=== PATIENT | female | born 1975 | race Caucasian/White ===

== ENCOUNTER 2020-05-02 12:56 | Outpatient (CLI) | payer BC, SELFPAY | END 2020-05-02 12:57 | disposition home or self-care (01) | LOC: ANHCOVIDVC 12:56 | PROVIDERS: PCP Family Medicine | DX: Z23 Encounter for immunization (principal) | CPT/HCPCS: 0001A; 91300 ==

== ENCOUNTER 2020-05-23 12:58 | Outpatient (CLI) | payer BC, SELFPAY | END 2020-05-23 12:59 | disposition home or self-care (01) | LOC: ANHCOVIDVC 12:59 | PROVIDERS: PCP Family Medicine | DX: Z23 Encounter for immunization (principal) | CPT/HCPCS: 0002A; 91300 ==

== ENCOUNTER → 2020-08-17 12:18 | Outpatient (CLI) | payer BC, SELFPAY ==
--- NOTE | ~2020-08-17 | MM_ITS ---
EXAMINATION: MM screening adrienne BI w braden HISTORY: Screening TECHNIQUE: Craniocaudal and mediolateral oblique 3-D tomosynthesis images were obtained and synthetic 2-D images were generated. CAD analysis was submitted and interpreted. COMPARISON: Comparison to multiple prior studies sequentially, with oldest reviewed study dated 11/13. BREAST PARENCHYMAL COMPOSITION: The breasts are almost entirely fatty. FINDINGS: There is no evidence of suspicious mass, calcification, or architectural distortion to sugg est malignancy in either breast. There has been no suspicious interval change. IMPRESSION: 1. No mammographic evidence of malignancy. 2. Recommend routine screening mammography in one year. BI-RADS Category 1: Negative Reviewed, dictated and finalized at location A.
== END ==
PROVIDERS: PCP Family Medicine; Visit Provider Physician Assistant
DX: Z12.31 Encounter for screening mammogram for malignant neoplasm of breast (principal)
CPT/HCPCS: 77063; 77067

== ENCOUNTER 2020-10-25 16:25 | Outpatient (CLI) | payer BC, SELFPAY ==
--- NOTE | ~2020-10-25 | CT_ITS ---
EXAMINATION: CT abdomen pelvis wo/w con DATE: 10/25/2020 17:40 INDICATION: Right lower quadrant pain TECHNIQUE: Computed tomography (CT) of the abdomen and pelvis was performed without and with 130 cc O mnipaque 350 intravenous contrast. The dose-length product was 2998.65 mGy-cm. Automated exposure con trol and iterative reconstruction technique were employed. COMPARISON: None. FINDINGS: Lung bases are unremarkable. No significant pleural or pericardial effusion. Heart size is normal. There are nonobstructing bilateral renal stones. No hydronephrosis. Ureters are normal in cou rse and caliber. There is a small exophytic hypodense lesion of the right kidney measuring 1.4 cm, li sundeep a minimally complicated cysts. Adrenal glands are unremarkable. There is a subcentimeter hypodense lesion of the left kidney, likely benign cysts. Nonobstructive bowel gas pattern. Normal appendix. No lymphadenopathy. No free air or free fluid. IMPRESSION: 1. Nonobstructing bilateral nephrolithiasis. Reviewed, dictated and finalized at location A.
[2020-10-25 17:19] LABS: Estimated Glomerular Filt Rate > 60
== END 2020-10-25 16:26 | disposition home or self-care (01) ==
PROVIDERS: PCP Family Medicine; Visit Provider Physician Assistant
DX: N20.0 Calculus of kidney (principal); Z87.442 Personal history of urinary calculi
CPT/HCPCS: 74178; Q9967

== ENCOUNTER 2021-07-23 09:02 | Emergency (ER) | payer BC, SELFPAY ==
--- NOTE | 2021-07-23 09:06 | ED.GENADULT ---
HPI - General Adult General Chief complaint: Abdominal Pain Stated complaint: pain on right side, requests xray Time Seen by Provider: 07/23/21 09:06 Source: patient and RN notes reviewed History of Present Illness HPI narrative: Patient is a 45-year-old female who presents the urgent care with complaints of right side pain that radiates every now and then into the right lower abdomen. Patient states that it started out with severe nausea and loose stools on Friday. Patient states she felt fine Friday. States that yesterday she was nauseated again without vomiting. States that she spoke to her [place] physician this morning and they told her to go to the urgent care to rule out appendicitis and kidney stones. Patient denies any fevers. States that she has had kidney stones in the past but it approximately 20 years. Denies of any frequency or urgency with urination. Patient reports taking one dose of Uroflo. Denies of any blood in the urine. No other acute complaints. No acute distress noted. Patient aware of the plan of care. Some parts of this dictation were generated by voice recognition software and may contain typographical and/or grammatical inaccuracies. Related Data Allergies Allergy/AdvReac Type Severity Reaction Status Date / Time Sulfa (Sulfonamide Allergy Unknown Nausea and Verified 07/23/21 09:18 Antibiotics) Vomiting Review of Systems Review of Systems: CONSTITUTIONAL: Denies fever, chills, or sweats. EYES: Denies visual changes, redness, or discharge. ENT: Denies rhinorrhea, congestion, sore throat, or otalgia. CARDIOVASCULAR: Denies chest pain, palpitations, or edema. RESPIRATORY: Denies cough or dyspnea. GASTROINTESTINAL: Reports of intermittent right abdominal pain without vomiting GENITOURINARY: Denies dysuria or hematuria. SKIN: Denies rash or itching. MUSCULOSKELETAL: Reports of right lower back/side pain NEUROLOGIC: Denies headache, numbness, or weakness. All other systems reviewed are negative, except as documented in HPI. [facility] Family History Family History Father Hypertension Mother Hypertension Social History Social History Smoking status: Former smoker Smoking end date: 02/17/06 Alcohol intake: never Substance use: never Gender identity (if verbalized by the patient): Female Comments At the time of my signature, I reviewed and agree with the nursing past medical, surgical, social, and family history. There is no relevant family history pertinent to the patient complaint. Exam Narrative: GENERAL: This is a well-nourished, well-developed patient, in no apparent distress. HEAD: normocephalic, atraumatic. EYES: PERRL. Sclera clear/white. Vision is grossly intact. EARS: External ears normal NOSE: External nose normal with no obvious nasal discharge, nares without redness, no rhinorrhea. THROAT: Mucous membranes moist NECK: Neck supple CARDIOVASCULAR: Regular rate and rhythm without murmurs, gallops, or rubs. RESPIRATORY: Clear to auscultation. Breath sounds equal bilaterally. No wheezes, rales, or rhonchi. GASTROINTESTINAL: Abdomen soft, nondistended. Bowel sounds are active. Mild right-sided rebound tenderness. No guarding. Negative obturator exam SKIN: warm, intact with no suspicious lesions or rash, good texture and turgor. NEURO: awake, alert, and oriented to person, place and time. There were no obvious focal neurologic abnormalities. EXTREMITIES: No clubbing, cyanosis, or edema. BACK: No flank tenderness. Course Course Level of Care: Express Care Visit Vital Signs Vital signs: Vital Signs Temperature 98.2 F 07/23/21 09:10 Pulse Rate 88 07/23/21 09:10 Respiratory Rate 16 07/23/21 09:10 Blood Pressure 158/91 H 07/23/21 09:10 Pulse Oximetry 99 07/23/21 09:10 Oxygen Delivery Room Air 07/23/21 09:10 Temperature 98.2 F 07/23/21 09
[2021-07-23 09:10] VITALS: BP 158/91; PULSE 88; RESP 16; TEMP 36.8; O2SAT 99
== END 2021-07-23 09:45 | disposition home or self-care (01) ==
PROVIDERS: Emergency Provider Nurse Practitioner Family; PCP Family Medicine
DX: N39.0 Urinary tract infection, site not specified (principal); Z87.891 Personal history of nicotine dependence; I10 Essential (primary) hypertension
CPT/HCPCS: 81003; 87077; 87086; 87186; 99213; G0463

== ENCOUNTER 2021-07-25 07:46 | Inpatient (IN) | payer BC, SELFPAY ==
[2021-07-25] VITALS (20 sets, daily range): BP systolic 106–159; BP diastolic 53–96; PULSE 85–132; RESP 16–30; TEMP 36.1–39.8; O2SAT 94–99
--- NOTE | ~2021-07-25 | XR_ITS ---
EXAMINATION: XR retrograde pyelo w/stent RT DATE: 07/25/2021 16:02 CDT INDICATION: RETRO/STENT . TECHNIQUE: 5 fluoroscopic images of the right upper abdomen were obtained during retrograde pyelograp hy with stent placement performed by the surgeon. I was not present in the operating room. Fluoroscop y exposure time was 50.6 seconds. Cumulative dose was 1.58 mGy2. COMPARISON: CT abdomen and pelvis 07/25/2021 FINDINGS: Guidewire access to both the upper and lower pole moieties of the right partially duplicated collecti ng system. The previously detected right UPJ stone in the upper moiety is not fluoroscopically visual ized. Ureteral stent placement with the proximal pigtail in the upper pole moiety and the distal pigt ail in the bladder. No fluoroscopic evidence of procedure or device related complication. IMPRESSION: Fluoroscopic documentation of right retrograde pyelography and stent placement.. Reviewed, dictated and finalized at location K. IMPRESSION: Fluoroscopic documentation of right retrograde pyelography and stent placement. .
--- NOTE | ~2021-07-25 | CT_ITS ---
EXAMINATION: CT abdomen pelvis wo con DATE: 07/26/2021 11:38 INDICATION: Kidney stone. TECHNIQUE: Computed tomography (CT) of the abdomen and pelvis was performed without intravenous contr ast. Automated exposure control and iterative reconstruction technique were employed. The dose-length product was 1521.26 mGy-cm. COMPARISON: CT abdomen and pelvis 07/25/2021, 10/25/2020 FINDINGS: The visualized portions of the lung bases demonstrate minimal atelectasis. No pleural effus ion. The heart size is normal. No pericardial effusion. There is diffuse hepatic steatosis. The gallb ladder, spleen, pancreas, and adrenal glands are normal. There are cysts in right kidney measuring up to 1.8 cm. 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 There are are 2 right-sided internal ur eteral stents in expected positions. There is a 6 mm stone in the upper pole proximal ureter. There a re two 1-2 mm stones in right kidney lower pole. There are approximately 3 stones in left kidney aileen uring up to 4 mm. There is diverticulosis of the colon without evidence of diverticulitis. There are no dilated loops of bowel. The appendix is normal. There is an umbilical hernia containing fat. There are no pathologically enlarged lymph nodes. There is no free intraperitoneal fluid. There is mild th oracolumbar spondylosis. IMPRESSION: 1. 6 mm stone in the right kidney upper pole proximal ureter. 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 2. Small bilateral nonobstructing kidney stones. Reviewed, dictated and finalized at location A. IMPRESSION: 1. 6 mm stone in the right kidney upper pole proximal ureter. Partial duplicati on of right ureter with 2 internal ureteral stents in expected positions. 2. Small bilateral nonobstructing kidney stones.
--- NOTE | ~2021-07-25 | XR_ITS ---
XR abdomen/kub 1V 07/26/2021 08:13 Indication: Assess renal stones and stents. 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 No renal/ureteral stones are identified, although evaluation of the upper abdomen limited b y motion. Nonobstructive bowel gas pattern. No acute osseous abnormality. Impression: 1: No renal/ureteral stones visualized. Reviewed, dictated and finalized at location B. Impression: 1: No renal/ureteral stones visualized.
--- NOTE | ~2021-07-25 | CT_ITS ---
EXAMINATION: CT abdomen pelvis wo con DATE: 07/25/2021 09:52 INDICATION: Right flank pain, fever for 3 days. Possible kidney stone. TECHNIQUE: Computed tomography (CT) of the abdomen and pelvis was performed without intravenous contr ast. Automated exposure control and iterative reconstruction technique were employed. Exam dose: 131 5.93 mGy-cm total exam DLP. COMPARISON: 10/25/2020 CT abdomen pelvis FINDINGS: There is minimal dependent right lower lobe atelectasis. Normal heart size. No pericardial or pleural effusion. Very small sliding hiatal hernia. No hepatic, splenic, pancreatic, adrenal space-occupying mass lesion. No bile duct or pancreatic duct dilatation. The gallbladder appears unremarkable. Minimal bilateral nephrolithiasis, left greater than right. Approximate 4.7 x 5.7 mm right ureteropelvic junction calculus. There is mild right hydronephrosis. No left ureteral calculus or hydroureteronephrosis. The urinary bladder is unremarkable. There is [place] rine enlargement. There are numerous diverticula of the sigmoid colon; no CT evidence of diverticulitis. No bowel obstr uction, bowel wall thickening, pneumatosis or intraperitoneal free air. Small fat-containing umbilical hernia. Transitional fifth lumbar vertebra with sacralization pseudoarthrosis on the right. IMPRESSION: Approximately 4.7 x 5.7 mm right ureteropelvic junction calculus with mild right hydrone phrosis Slight right, minimal left nephrolithiasis Very small sliding hiatal hernia Diverticulosis of left colon; no CT evidence of diverticulitis Reviewed, dictated and finalized at Location A. Reviewed, dictated and finalized at location A. IMPRESSION: Approximately 4.7 x 5.7 mm right ureteropelvic junction calculus w ith mild right hydronephrosis Slight right, minimal left nephrolithiasis Very small sliding hiatal hernia Diverticulosis of left colon; no CT evidence of diverticulitis
--- NOTE | ~2021-07-25 | XR_ITS ---
XR abdomen/kub 1V DATE: 07/25/2021 10:54 INDICATION: Right abdominal pain. Right ureteropelvic junction calculus TECHNIQUE: AP view COMPARISON: 07/25/[address] abdomen pelvis FINDINGS: The right ureteropelvic junction calculus documented on 07/25/2021 CT abdomen pelvis examinat ion isn't radiographically occult, as are the small calculi of the lower pole of each kidney. No evidence of bowel obstruction. IMPRESSION: Radiographically occult right ureteropelvic junction and bilateral lower pole renal calcu li Reviewed, dictated and finalized at Location A. Reviewed, dictated and finalized at location A. IMPRESSION: Radiographically occult right ureteropelvic junction and bilateral lower pole renal calculi
[2021-07-25 08:15] LABS: Basophils Absolute Auto 0.1 K/mm3 (0.0-0.1); Basophils Percent Auto 0.4 % (0.2-1.2); Eosinophils Absolute Auto 0.3 K/mm3 (0-0.3); Eosinophils Percent Auto 2.5 % (0-4.4); Hematocrit 40.5 % (37.0-47.0); Immature Granulocyte Absolute 0.08 K/mm3 (0.00-0.031); Immature Granulocyte Percent A 0.6 % (0-0.5); Lymphocytes Absolute Auto 0.42 K/mm3 (0.9-3.2); Lymphocytes Percent Auto 3.3 % (18.3-44.2); Mean Corpuscular HGB Conc 34.6 g/dl (32-36); Mean Corpuscular Hemoglobin 32.3 pg (26-34); Mean Corpuscular Volume 93.3 fl (80-100); Mean Platelet Volume 9.7 fl (7.4-10.4); Monocytes Absolute Auto 0.8 K/mm3 (0.1-0.6); Monocytes Percent Auto 6.3 % (2.6-8.5); Neutrophils Percent Auto 86.9 % (45.5-73.1); Platelet Count Result 212 k/mm3 (150-375); Red Blood Count 4.34 M/mm3 (4.2-5.4); Red Cell Distribution Width 12.3 % (11.5-14.5); White Blood Count 12.7 K/mm3 (4.5-10.0)
[2021-07-25 08:17] LABS: Appearance Urine Slightly Cloudy (Clear); Bilirubin Urine Negative (Negative); Blood Urine 1+ (Negative); Glucose Urine UA Negative (Negative); Ketones Urine 1+ mg/dL (Negative); Leukocyte Esterase Ur Trace LEU/UL (Negative); Nitrate Urine Negative (Negative); Protein Urine 2+ mg/dL (Negative); Specific Grav Ur 1.015 (1.001-1.035); Urobilinogen Urine 0.2 mg/dL (<2.0)
[2021-07-25 08:28] LABS: Bacteria Urine Trace /hpf; Mucus Urine Rare /lpf; Squamous Epithelial Cell Urine Moderate /hpf (Few); WBC Urine 16-20 /hpf
[2021-07-25 08:30] LABS: Alanine Aminotransferase 28 U/L (6-35); Albumin Level 3.9 g/dL (3.5-5.1); Alkaline Phosphatase 60 U/L (38-126); Anion Gap 6 mmol/L (8-16); Aspartate Amino Transferase 37 U/L (14-36); Bilirubin,Total 1.4 mg/dL (0.2-1.3); Blood Urea Nitrogen 14 mg/dL (7-17); Calcium 8.8 mg/dL (8.4-10.2); Carbon Dioxide 25 mmol/L (22-30); Chloride 101 mmol/L (98-107); Estimated CRCL calculation 111 ml/min; Estimated Glomerular Filt Rate > 60; Glucose 195 mg/dL (65-110); Potassium 3.4 mmol/L (3.4-5.0); Sodium 132 mmol/L (137-145)
[2021-07-25 08:42] LABS: Add Urine Microscopic? YES; Color Urine Dark Yellow (Yellow)
--- NOTE | 2021-07-25 09:02 | PC.NURSE ---
Lab notified of add-on Hemoglobin A1C and urine .
[2021-07-25] MEDS: SODIUM CHLORIDE 0.9% IV 1,000 ML 150 ML IV CONT (09:05)
[2021-07-25 09:31] LABS: Pregnancy On Board Control Positive; Urine Pregnancy Test Negative
[2021-07-25 09:40] LABS: SARS-CoV-2 RNA PCR Negative
[2021-07-25 10:47] LABS: Hemoglobin A1C 5.5 % (<5.7)
--- NOTE | 2021-07-25 10:54 | ED.FEVER ---
HPI - Fever General Chief Complaint: Fever Stated Complaint: fever for three days Time Seen by Provider: 07/25/21 08:04 Source: patient Mode of arrival: ambulatory Limitations: no limitations History of Present Illness HPI Narrative: 45-year-old with a history of hypertension, kidney stones here with complaints of right flank pain radiating into to the lower right lower abdomen. Patient states that she has been to urgent care was given Macrobid for possible UTI. Since this morning she has been having more pain and her temperature was 104 at home at the time she came to the ER that her fever broke , she did her mention her son was diagnosed with Viral syndrome . MD elicited complaint: fever Pertinent past history: other (Kidney stones) Context: recent antibiotic use (macrobid) Exacerbating factors: nothing Relieving factors: acetaminophen Associated symptoms: denies other symptoms Treatments prior to arrival fever: acetaminophen Related Data Allergies Allergy/AdvReac Type Severity Reaction Status Date / Time Sulfa (Sulfonamide Allergy Unknown Nausea and Verified 07/25/21 08:08 Antibiotics) Vomiting Review of Systems Constitutional: Constitutional: Reports no additional constitutional complaints Eyes: Eyes: Reports no additional eye complaints ENT: Reports system reviewed and no additional complaints, except as documented Cardiovascular: Cardiovascular: Reports no additional cardiovascular complaints Respiratory: Respiratory: Reports no additional respiratory complaints Gastrointestinal: Gastrointestinal: Reports as per HPI Musculoskeletal: Musculoskeletal: Reports no additional musculoskeletal complaints Neurologic: Reports system reviewed and no additional complaints, except as documented PMFSH Family History Family History Father Hypertension Mother Hypertension Social History Social History Smoking status: Former smoker Smoking end date: 02/17/06 Alcohol intake: never Substance use: never Gender identity (if verbalized by the patient): Female Exam Narrative: GENERAL: Well-appearing, well-nourished, and in no acute distress.diaphoretic HEAD: Normocephalic, atraumatic. EYES: PERRLA and EOMI. NECK: Supple. CHEST: Clear to auscultation. No respiratory distress. HEART: Regular rate and rhythm. No murmur heard. Normal peripheral pulses. ABDOMEN: Soft, nontender, nondistended, normal active bowel sounds. EXTREMITIES: Normal range of motion. No edema. SKIN: Warm, dry, no rash. NEURO: No focal deficits. Alert and oriented x3. PSYCH: Normal mood and affect. Course Course Emergency Course: I did inform patient about her lab work, CT findings. Discussed with Dr. Bach recommended patient to be admitted to the hospitalist will possibly place stent today. Meanwhile I did give her IV fluids, pain medication and IV Rocephin. Vital Signs Vital signs: Vital Signs Temperature 37.4 C 07/25/21 07:49 Pulse Rate 107 H 07/25/21 07:49 Respiratory Rate 17 07/25/21 07:49 Blood Pressure 141/85 H 07/25/21 07:49 Pulse Oximetry 97 07/25/21 07:49 Temperature 37.4 C 07/25/21 07:49 Pulse Rate 107 H 07/25/21 07:49 Respiratory Rate 17 07/25/21 07:49 Blood Pressure 106/53 L 07/25/21 10:01 Pulse Oximetry 98 07/25/21 10:01 MDM - Fever MDM Narrative Medical decision making narrative: 45-year-old with kidney stones now having flank pain with a high fever suspect possible infected stone versus pyelonephritis versus UTI will do lab and CT. Differential Diagnosis Differential diagnosis: Likely pyelonephritis Medical Records Attestation: I reviewed the patient's medical records. Lab Data Attestation: I reviewed the patient's lab results. Result diagrams: 07/25/21 08:10 07/25/21 08:10 Labs: Lab Results 07/25/21 07/25/21 07/25/21 Range/
--- NOTE | 2021-07-25 12:23 | WPDURCON ---
Assessment and Plan Assessment and plan (1) E coli infection: Code(s): A49.8 - Other bacterial infections of unspecified site Status: Acute Assessment and Plan: Urine Culture from grew E-Coli sensitive to both Macrobid that she has taken for two days without improvement and Ceftriaxone given in the ER today. New urine and blood cultures were taken today, continue with Ceftriaxone. Likely secondary to obstructive stone. (2) Bilateral renal stones: Code(s): N20.0 - Calculus of kidney Status: Acute Assessment and Plan: Visible on KUB, could be treated with an ESWL in the future after discharge and infection is gone, or watched yearly with a KUB with the risk of stones passing spontaneously. (3) Right ureteral stone: Code(s): N20.1 - Calculus of ureter Status: Acute Assessment and Plan: D/t persistent fevers, infection of the urine, and persistent pain, we will plan to take her to the OR today for a Cystoscopy, right ureteroscopy with stent placement, right retrograde pyelogram. Keep NPO. Obtain consent. Admit to medicine for continued treatment of UTI, possible sepsis. Urology Consult Note HPI Date Seen: 07/25/21 Requesting Physician: Roseann Brown MD Primary Care Provider: Jarek Mayo MD Consult Narrative Reason for consult: Obstructive Right Ureteral stone with UTI Narrative: Oneyda Griffiths is a 45 year old female who presented to the ER this morning with persistent fevers for 3 days up to 104, right flank and abdominal pain. She initially went to urgent care and was treated for a UTI/pyelonephritis with Macrobid. Her urine culture from 07/23/21 grew E-Coli which was sensitive to Macrobid, but she continued to worsen. Her CT scan today shows a 4x5mm right UPJ stone with mild hydronephrosis and bilateral non obstructive stones. All stones seem to be visible on KUB. She took Tylenol around 0800 which has subsided her fever at this time. She denies dysuria, hematuria, nausea or vomiting. She has a creatinine of 0.80 and a WBC of 12.7. She has a history of kidney stones that were treated with a stent/ESWL, which didn't work and then required a PCNL at a different hospital 20 years ago after delivery of her baby at that time. She has known about her stones since then but was watching them and hasn't seen a urologist since. She was just waiting for symptoms to address them. Review of Systems Constitutional: Constitutional: Reports fatigue and Reports night sweats Cardiovascular: Cardiovascular: Denies chest pain Respiratory: Respiratory: Reports no additional respiratory complaints Gastrointestinal: Gastrointestinal: Reports abdominal pain, Denies nausea and Denies vomiting Genitourinary: Genitourinary: Denies hematuria, Denies dysuria, Denies pelvic pain, Reports flank pain, Denies urinary incontinence, Denies urinary hesitancy and Denies urinary urgency [facility] Family History Family History Father Hypertension Mother Hypertension Social History Social History Smoking status: Former smoker Smoking end date: 02/17/06 Alcohol intake: never Substance use: never Gender identity (if verbalized by the patient): Female Meds Home Medications and Allergies Home Medications Medication Instructions Recorded Confirmed Type lisinopril 10 mg tablet 10 mg PO DAILY #90 tabs 03/27/21 07/23/21 Rx nitrofurantoin 100 mg PO Q12H 7 days #14 caps 07/23/21 Rx monohydrate/macrocrystals 100 mg capsule (Macrobid) Allergies Allergy/AdvReac Type Severity Reaction Status Date / Time Sulfa (Sulfonamide Allergy Unknown Nausea and Verified 07/25/21 08:08 Antibiotics) Vomiting Vital Signs Vital Signs - 24 hr 07/25/21 07:49 07/25/21 07:59 07/25/21 08:00 Temperature 99.3 F Pulse Rate 107 H Respiratory Rate 17 Blood Pressure
--- NOTE | 2021-07-25 13:15 | PM.IMHP ---
H&P: HPI History of Present Illness Date/Time: 07/25/21 13:15 Chief Complaint: Fever and right flank pain. Narrative: This is a pleasant 45-year-old female with hypertension and history of kidney stones who presented to the ER for evaluation of fever and right flank pain. Several days ago she developed right-sided flank and lower abdominal pain and at that time she was worried that she may have another kidney stone or perhaps even had appendicitis. She was seen at a local urgent care where she was diagnosed with the urinary tract infection and she was prescribed Macrobid. At that time they told her that she may need to go to the ER for imaging however she wanted to try the antibiotics 1st. Urine culture grew pansensitive E coli and despite compliance with her antibiotics she has started to feel worse. In fact she has continuously spiked fevers despite alternating ibuprofen and Tylenol with a T-max of 104? F. She has had essentially no appetite and reports ongoing nausea. CT of the abdomen and pelvis today showed an approximately 4.7 x 5.7 mm right ureteropelvic junction calculus with mild right hydronephrosis and she is now status post cystoscopy with right ureteral stent placement and Ramirez catheter insertion. I saw her not long after returning to the floor and she appears to be having rigors. She denies feeling particularly hot or cold at this time. She continues to have nausea and she is reporting spasms in her bladder. Review of Systems Review of Systems: Twelve systems were reviewed. Family members had viral infection last week and she initially thought perhaps she had caught that. No sinus congestion or sore throat. No cough or shortness of breath. She denies chest pain. No diarrhea. She has not really had any dysuria. Except as documented, all other systems were reviewed and are negative. COUNT INCLUDES THE [facility] Past Medical History Medical History Hypertension Kidney stones Surgical History Surgical History History of section x3 History of lithotripsy Family History Family History Father Hypertension Mother Hypertension Social History Social History Social History: Surrogate decision maker: Kian Griffiths, spouse. Code status: Full code. Smoking status: Never smoker Smoking end date: 02/17/06 Alcohol intake: never Substance use: never Additional living arrangements comments: Lives in [place] with family. 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 Spiritual care concerns: No Meds Home Medications and Allergies Home Medications Medication Instructions Recorded Confirmed Type lisinopril 10 mg tablet 10 mg PO DAILY #90 tabs 03/27/21 07/25/21 Rx nitrofurantoin 100 mg PO Q12H 7 days #14 caps 07/23/21 07/25/21 Rx monohydrate/macrocrystals 100 mg capsule (Macrobid) Allergies Allergy/AdvReac Type Severity Reaction Status Date / Time Sulfa (Sulfonamide AdvReac Unknown Nausea and Verified 07/25/21 17:59 Antibiotics) Vomiting Vital Signs Vital Signs - 24 hr 07/25/21 07:49 07/25/21 07:59 07/25/21 08:00 Temperature 99.3 F Pulse Rate 107 H Respiratory Rate 17 Blood Pressure 141/85 H 114/68 Pulse Oximetry 97 96 96 Oxygen Delivery 07/25/21 08:01 07/25/21 08:02 07/25/21 09:58 Temperature Pulse Rate Respiratory Rate Blood Pressure 128/96 H Pulse Oximetry 96 95 99 Oxygen Delivery 07/25/21 10:00 07/25/21 10:01 07/25/21 12:25 Temperature Pulse Rate 96 Respiratory Rate Blood Pressure 106/53 L 107/73 Pulse Oximetry 98 98 98 Oxygen Delivery 07/25/21 13:38 Temperature 97.1 F L Pulse Rate 107 H Respiratory Rate 16 Blood Pressure 154/76 H Pulse Oximetry 94 Oxygen Delivery Room Air Exa
[2021-07-25] MEDS: LACTATED RINGERS 1,000 ML 30 ML IV CONT (14:20)
--- NOTE | 2021-07-25 14:35 | WPDHPUPDATE1 ---
History and Physical Update Update Date/Time: 07/25/21 14:35 History and Physical has been reviewed, including an updated exam of the patient. There are NO changes in the patient's condition. Risks, benefits, and alternatives have been discussed and questions answered. Patient agrees to proceed with procedure.
--- NOTE | 2021-07-25 15:04 | WPDANESEPPF ---
Anes - Initial Pre Proc Eval Procedure: Operation Date: 07/25/21 16:00 Proposed Procedures p Cystoscopy, Retrogradepyelogram, Right Stone Extraction, Right Stent Placement; Possible Laser(Right) - Niki Bach MD Date/Time: 07/25/21 15:04 Surgeon: Roseann Brown MD Pre Op Diagnosis: Fever, infected renal stone Patient Data Age: 45 Gender: F Height: 1.7 m Weight: 135 kg Last Vital Signs Temp 36.2 C L 07/25/21 13:38 Pulse 107 H 07/25/21 13:38 Resp 16 07/25/21 13:38 BP 154/76 H 07/25/21 13:38 Pulse Ox 94 07/25/21 13:38 O2 Del Method Room Air 07/25/21 13:38 Allergies Allergy/AdvReac Type Severity Reaction Status Date / Time Sulfa (Sulfonamide Allergy Unknown Nausea and Verified 07/25/21 08:08 Antibiotics) Vomiting Home Medications Medication Instructions Recorded Confirmed Type lisinopril 10 mg tablet 10 mg PO DAILY #90 tabs 03/27/21 07/25/21 Rx nitrofurantoin 100 mg PO Q12H 7 days #14 caps 07/23/21 07/25/21 Rx monohydrate/macrocrystals 100 mg capsule (Macrobid) Laboratory Tests 07/25/21 07/25/21 07/25/21 08:09 08:09 08:10 WBC RBC Hgb Hct MCV MCH MCHC RDW Plt Count MPV Immature Gran % (Auto) Neut % (Auto) Lymph % (Auto) [place] % (Auto) Eos % (Auto) Baso % (Auto) Lymph # (Auto) [place] # (Auto) Eos # (Auto) Baso # (Auto) Abs Immat Gran (auto) Absolute Neuts (auto) Absolute Nucleated RBC Nucleated RBC % Sodium Potassium Chloride Carbon Dioxide Anion Gap BUN Creatinine Estim Creat Clear Calc Estimated GFR Glucose Hemoglobin A1c 5.5 % % (<5.7) Lactic Acid Calcium Total Bilirubin AST ALT Alkaline Phosphatase C-Reactive Protein Total Protein Albumin Urine Color Dark yellow (Yellow) Urine Appearance Slightly cloudy (Clear) Urine pH 6.0 (5.0-9.0) Ur Specific [place] 1.015 (1.001-1.035) Urine Protein 2+ mg/dL H mg/dL (Negative) Urine Glucose (UA) Negative mg/dL mg/dL (Negative) Urine Ketones 1+ mg/dL H mg/dL (Negative) Ur Blood (Man) 1+ H (Negative) Urine Nitrate Negative (Negative) Urine Bilirubin Negative (Negative) Urine Urobilinogen 0.2 mg/dL mg/dL (<2.0) Leukocyte Esterase Rfl Trace JENNIFER/UL H JENNIFER/UL (Negative) Urine RBC 3-5 /hpf H /hpf (0-2) Urine WBC 16-20 /hpf H /hpf Ur Squamous Epith Cells Moderate /hpf H /hpf (Few) Urine Bacteria Trace /hpf /hpf Urine Mucus Rare /lpf /lpf Urine Test Negative SARS-CoV-2 RNA (RT-PCR) 07/25/21 07/25/21 07/25/21 08:10 08:10 08:20 WBC 12.7 K/mm3 H K/mm3 (4.5-10.0) RBC 4.34 M/mm3 M/mm3 (4.2-5.4) Hgb 14.0 g/dL g/dL (12.0-15.0) Hct 40.5 % % (37.0-47.0) MCV 93.3 fl fl (80-100) MCH 32.3 pg pg (26-34) MCHC 34.6 g/dl g/dl (32-36) RDW 12.3 % % (11.5-14.5) Plt Count 212 k/mm3 k/mm3 (150-375) MPV 9.7 fl fl (7.4-10.4) Immature Gran % (Auto) 0.6 % H % (0-0.5) Neut % (Auto) 86.9 % H % (45.5-73.1) Lymph % (Auto) 3.3 % L % (18.3-44.2) [place] % (Auto) 6.3 % % (2.6-8.5) Eos % (Auto) 2.5 % % (0-4.4) Baso % (Auto) 0.4 % % (0.2-1.2) Lymph # (Auto) 0.42 K/mm3 L K/mm3 (0.9-3.2)
[2021-07-25] MEDS: LIDOCAINE HCL 2% GEL UROJET 10 ML PKG MUCOUS MEM (15:59)
--- NOTE | 2021-07-25 16:17 | W.PM.PROC2 ---
Procedure Note - Detailed Date of Procedure 07/25/21 Pre-op Diagnosis Fever, infected right ureteral stone, Post-op Diagnosis Same ( duplicated right collecting system) Procedure Performed Cystoscopy, right retrograde pyelogram, right ureteral stent placement x2, Ramirez catheter insertion Surgeon Niki Bach MD Indications -sepsis due to obstructing right ureteral stone and urinary tract infection Findings -duplicated right collecting system -upper pole collecting system draining purulence and urine. Upper (6F)and lower (4.8F) pole moiety ureteral stent inserted Description of Procedure Informed consent obtained. Patient taken the operating. She received preoperative IV antibiotics in the emergency department. She was induced with MAC anesthesia. She was placed in the dorsal lithotomy position. She was prepped and draped normal sterile fashion. We inserted a 22 F cystoscope through the urethra into the bladder. 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 There was only 1 left ureteral orifice. Plain film x-ray showed low the stone was faintly visible. Then cannulated the medial/upper pole moiety orifice, retrograde pyelogram revealed a moderately hydronephrotic upper pole system. We were able to advance the wire with mild resistance at the level the stone into the upper pole collecting system, a 5 F angiographic catheter was advanced in his return of purulent urine that was sent for culture. Over the wire a 6 F variable length stent with a curl in the upper pole and a curl in the bladder was placed. At this point we cannulated the lateral/lower pole moiety a wire was inserted and 5 F angiographic catheter was used to perform a retrograde pyelogram showing no significant hydronephrosis. Over the wire a 4.8 F variable length stent was placed with a curl in the mid pole calyx and curl in the bladder. The bladder was then emptied with a Ramirez catheter. Patient taken recovery room stable condition. Complications No immediate complications Condition Stable Disposition PACU
[2021-07-25] MEDS: HYOSCYAMINE SULFATE 0.125 MG TABLET PO ×2 (18:26→22:41)
--- NOTE | 2021-07-25 18:33 | PC.NURSE ---
Pt resting per bed. Shaking. Temp elevated. Warm blanket provided per pt request. Fluids infusing. Provider notified. N new orders received. Awaiting IV Tylenol from pharmacy. Spouse at bedside. Will monitor.
--- NOTE | 2021-07-25 19:28 | PC.NURSE ---
Day shift RN called pharmacy twice regarding PRN tylenol. Cashier Tube Room called pharmacy at 1928 regarding PRN tylenol. No answer. Left voicemail. Will call again in 10 minutes.
[2021-07-25] MEDS: SODIUM CHLORIDE 0.9% IV 1,000 ML 125 ML IV CONT ×2 (19:39→22:13)
[2021-07-25] MEDS: ONDANSETRON INJ 4 MG/2 ML VIAL IV PUSH (19:44)
--- NOTE | 2021-07-25 20:57 | PC.NURSE ---
Tylenol given to pt. Pt fever still elevated (see vitals). Spoke with hostel manager Kelley and Angela was contacted. New orders to be put in.
[2021-07-26] VITALS (14 sets, daily range): BP systolic 111–142; BP diastolic 64–96; PULSE 83–102; RESP 14–20; TEMP 36.6–38.9; O2SAT 96–99
[2021-07-26] MEDS: HYOSCYAMINE SULFATE 0.125 MG TABLET PO ×4 (04:26→20:30)
[2021-07-26 06:19] LABS: Basophils Percent Auto 0.4 % (0.2-1.2); Eosinophils Percent Auto 0.1 % (0-4.4); Hematocrit 37.7 % (37.0-47.0); Immature Granulocyte Absolute 0.06 K/mm3 (0.00-0.031); Immature Granulocyte Percent A 0.7 % (0-0.5); Lymphocytes Absolute Auto 0.65 K/mm3 (0.9-3.2); Lymphocytes Percent Auto 7.7 % (18.3-44.2); Mean Corpuscular HGB Conc 34.5 g/dl (32-36); Mean Corpuscular Hemoglobin 32.5 pg (26-34); Mean Corpuscular Volume 94.3 fl (80-100); Monocytes Absolute Auto 0.9 K/mm3 (0.1-0.6); Monocytes Percent Auto 10.7 % (2.6-8.5); Neutrophils Absolute Auto 6.8 K/mm3 (1.3-6.7); Neutrophils Percent Auto 80.4 % (45.5-73.1); Platelet Count Result 182 k/mm3 (150-375); Red Cell Distribution Width 12.3 % (11.5-14.5); White Blood Count 8.4 K/mm3 (4.5-10.0)
[2021-07-26 06:38] LABS: Anion Gap 7 mmol/L (8-16); Blood Urea Nitrogen 16 mg/dL (7-17); Calcium 7.9 mg/dL (8.4-10.2); Carbon Dioxide 27 mmol/L (22-30); Chloride 102 mmol/L (98-107); Estimated CRCL calculation 126 ml/min; Estimated Glomerular Filt Rate > 60; Glucose 112 mg/dL (65-110); Magnesium 1.9 mg/dL (1.6-2.3); Potassium 3.2 mmol/L (3.4-5.0); Sodium 136 mmol/L (137-145)
[2021-07-26] MEDS: ONDANSETRON INJ 4 MG/2 ML VIAL IV PUSH ×2 (06:55→20:25)
[2021-07-26] MEDS: SODIUM CHLORIDE 0.9% IV 1,000 ML 125 ML IV CONT (06:58)
[2021-07-26] MEDS: lisinopriL 10 MG TABLET PO (07:57)
--- NOTE | 2021-07-26 09:14 | P.PNAN_ITS ---
Anes - Prog Note Post-Op Date/Time: 07/26/21 09:14 Cardiovascular status: normal Respiratory status: normal Airway patency: baseline Mental status: baseline Post-Op hydration status: normal Vital Signs: Last Vital Signs Temp 100.3 F H 07/26/21 08:00 Pulse 86 07/26/21 04:00 Resp 18 07/26/21 04:00 BP 129/96 H 07/26/21 04:00 Pulse Ox 99 07/26/21 04:00 O2 Del Method Room Air 07/25/21 20:00 Pain Score (VAS): 02/26 I/O: Intake & Output 07/25/21 07/26/21 07/26/21 23:59 07:59 15:59 Intake Total 1315 1450 220 Output Total 30 1500 Balance 1285 -50 220 Laboratory Tests 07/26/21 05:49 07/26/21 05:49 07/25/21 07/25/21 07/25/21 08:09 08:09 08:56 WBC RBC Hgb Hct MCV MCH MCHC RDW Plt Count MPV Immature Gran % (Auto) Neut % (Auto) Lymph % (Auto) [place] % (Auto) Eos % (Auto) Baso % (Auto) Lymph # (Auto) [place] # (Auto) Eos # (Auto) Baso # (Auto) Abs Immat Gran (auto) Absolute Neuts (auto) Absolute Nucleated RBC Nucleated RBC % Sodium Potassium Chloride Carbon Dioxide Anion Gap BUN Creatinine Estim Creat Clear Calc Estimated GFR Glucose Hemoglobin A1c 5.5 Calcium Magnesium Urine Test Negative SARS-CoV-2 RNA (RT-PCR) Negative 07/26/21 07/26/21 05:49 05:49 WBC 8.4 RBC 4.00 L Hgb 13.0 Hct 37.7 MCV 94.3 MCH 32.5 MCHC 34.5 RDW 12.3 Plt Count 182 MPV 10.0 Immature Gran % (Auto) 0.7 H Neut % (Auto) 80.4 H Lymph % (Auto) 7.7 L [place] % (Auto) 10.7 H Eos % (Auto) 0.1 Baso % (Auto) 0.4 Lymph # (Auto) 0.65 L [place] # (Auto) 0.9 H Eos # (Auto) 0.0 Baso # (Auto) 0.0 Abs Immat Gran (auto) 0.06 H Absolute Neuts (auto) 6.8 H Absolute Nucleated RBC 0.0 Nucleated RBC % 0.0 Sodium 136 L Potassium 3.2 L Chloride 102 Carbon Dioxide 27 Anion Gap 7 L BUN 16 Creatinine 0.70 Estim Creat Clear Calc 126 Estimated GFR > 60 Glucose 112 H Hemoglobin A1c Calcium 7.9 L Magnesium 1.9 Urine Test SARS-CoV-2 RNA (RT-PCR) Microbiology 07/25/21 08:20 Blood Blood Culture - Preliminary 07/25/21 08:20 Blood Blood Culture - Preliminary Patient Feedback: Patient satisfied with anesthetic care.
[2021-07-26] MEDS: POTASSIUM CHLORIDE 20 MEQ PACKET (FOR LIQUID) 40 MEQ PO (09:36)
--- NOTE | 2021-07-26 11:28 | WPDUROPN2 ---
Progress Note: A&P Assessment and Plan (1) Sepsis: Code(s): A41.9 - Sepsis, unspecified organism Status: Acute Assessment and Plan: Repeat urine and blood cultures are pending. She continues to be febrile despite stent placement and multiple doses of Rocephin which is sensitive on her UA from UC that grew E-Coli. Continue IV antibiotics, if patient continues to be febrile, may need to consider additional antibiotic coverage. (2) E. coli urinary tract infection: Code(s): N39.0 - Urinary tract infection, site not specified; B96.20 - Unspecified Escherichia coli [E. coli] as the cause of diseases classified elsewhere Status: Acute (3) Hydronephrosis of right kidney: Code(s): N13.30 - Unspecified hydronephrosis Status: Acute Assessment and Plan: Will re-evaluate with a CT scan today. (4) Ureteropelvic junction calculus: Code(s): N20.1 - Calculus of ureter Status: Acute Assessment and Plan: KUB shows no stones, will need a CT to determine placement of stone after stent placement. Will continue to monitor patient until fever free for 24 hours and urine/blood cultures return. Depending on stone location, she may need a ureteroscopy for stone removal and stent exchange once infection is gone in a few weeks as an outpatient. IF the stones were pushed back into the kidney, she will just have stents removed in a few weeks in the office and we will monitor stones periodically. Unable to do an ESWL d/t stones not being visible on KUB. 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 She is feeling much better today but still febrile. Urine and blood cultures are pending. WBC is improved to baseline. Creatinine is normal at 0.70. Post Op day: 1 Review of Systems Cardiovascular: Cardiovascular: Denies chest pain Respiratory: Respiratory: Reports no additional respiratory complaints Gastrointestinal: Gastrointestinal: Denies abdominal pain, Denies nausea and Denies vomiting Genitourinary: Genitourinary: Denies hematuria, Reports nocturia, Denies dysuria, Denies pelvic pain, Reports flank pain, Denies urinary hesitancy and Denies urinary urgency Exam Resp: Effort & Inspection: normal respiratory effort Cardio: Rate: regular rate GI: GI Palp: Yes Soft to palpation and No Tenderness to palpation present (GI) : General: Yes CVA tenderness on the right Urinary Catheter: Urinary Catheter: patent and draining and urine dark Extrem: Right lower extremity: no edema Left lower extremity: no edema Objective Data Vital Signs Vital Signs: Vital Signs - 24 hr 07/25/21 12:25 07/25/21 13:38 07/25/21 13:38 Temperature 97.1 F L Pulse Rate 96 107 H Respiratory Rate 16 Blood Pressure 107/73 154/76 H Pulse Oximetry 98 94 94 Oxygen Delivery Room Air Room Air 07/25/21 16:17 07/25/21 16:25 07/25/21 16:40 Temperature 97.1 F L 97.0 F L Pulse Rate 93 85 85 Respiratory Rate 16 16 20 Blood Pressure 116/73 108/65 111/66 Pulse Oximetry 96 96 96 Oxygen Delivery Room Air Room Air Room Air 07/25/21 16:55 07/25/21 17:05 07/25/21 18:00 Temperature 97.2 F L 100.6 F H Pulse Rate 87 94 120 H Respiratory Rate 18 19 24 H Blood Pressure 118/74 121/70 139/95 H Pulse Oximetry 96 96 99 Oxygen Delivery Room Air Room Air 07/25/21 18:30 07/25/21 19:48 07/25/21 19:30 Temperature 103.6 F H 103.0 F H Pulse Rate 132 H 124 H Respiratory Rate 30 H 26 H Blood Pressure 159/74 H 128/69 Pulse Oximetry 98 95 94 Oxygen Delivery Room Air 07/25/21 20:26 07/25/21 20:00 07/26/21 00:00 Temperature 102.7 F H 98.7 F Pulse Rate 92 Respiratory Rate 20 Blood Pressure 129/67 Pulse Oximetry 98 Oxygen Delivery Room Air 07/26/21 04:00 07/26/21 06:58 07/26/21 07:36 Temperature 97.8 F 102.0 F H 100.3 F H Pulse Rate 86 Respir
--- NOTE | 2021-07-26 14:04 | PM.IMPN ---
Progress Note: A&P Assessment and Plan (1) Sepsis: Code(s): A41.9 - Sepsis, unspecified organism Status: Acute Assessment and Plan: With fever, tachycardia, tachypnea, and leukocytosis in the setting of UTI. Lactic acid levels within normal limits. Blood pressures remain stable. Tachypnea, tachycardia, and leukocytosis resolved Patient with persistent fever, however with downward trend in fever curve. Low-grade fever 100.3 today. Continue antipyretics Blood cultures pending, negative to date Urine cultures pending Continue IV antibiotics and tailor based on culture results (2) E. coli urinary tract infection: Code(s): N39.0 - Urinary tract infection, site not specified; B96.20 - Unspecified Escherichia coli [E. coli] as the cause of diseases classified elsewhere Status: Acute Assessment and Plan: Urine culture on 07/23/2021 collected at [facility] grew pansensitive E coli. Repeat urine culture in ED on 07/25 is pending Urine cystoscopy culture also pending Continue IV Ceftriaxone Will await further culture identification prior to adjusting antibiotics. (3) Ureteropelvic junction calculus: Code(s): N20.1 - Calculus of ureter Status: Acute Assessment and Plan: Status post cystoscopy with right ureteral stent placement x2 per Dr. Bach. CT a/p today showed ureteral stents in expected position with 6 mm stone in right upper pole proximal ureter. Appreciate urology consultation Per urology, consider ureteroscopy for stone removal with stent exchange upon resolution of acute infection (4) Hydronephrosis of right kidney: Code(s): N13.30 - Unspecified hydronephrosis Status: Acute Assessment and Plan: Plan is as detailed above. (5) Hypertension: Code(s): I10 - Essential (primary) hypertension Status: Acute Assessment and Plan: Blood pressures were reviewed and they are stable. Last BP 131/78 Continue lisinopril with parameters Monitor BP trends closely. (6) Hyperglycemia: Code(s): R73.9 - Hyperglycemia, unspecified Status: Acute Assessment and Plan: Patient has history of gestational diabetes. Hemoglobin A1c today was 5.5%. Fasting glucose 112 today Continue to monitor with AM labs Subjective Date/time seen: 07/26/21 14:04 Interval history: Date of service: 07/26/2021 Oneyda Griffiths is a 45-year-old female with a history of hypertension and kidney stones who is seen in follow-up for sepsis secondary to UTI and ureterolithiasis. She is feeling okay today. She is still having fevers but states there resolving with Tylenol. She states she can feel a fever coming on and she becomes shaky and sweaty. She states she has been taking Tylenol around the clock. She denies any pain including suprapubic pain, flank pain, or back pain. No issues with her Ramirez catheter. She reports her urine appears slightly dark. She does endorse nausea but no vomiting. She does have a decreased appetite. She was able to eat a bit of her breakfast. Her lunch tray was delivered during my encounter in she states she was going to try to have some of her lunch. She denies dizziness, lightheadedness, or weakness. Denies shortness of breath, cough, or chest pain. Review of Systems Review of Systems: All systems reviewed & are unremarkable except as noted in HPI and below Exam Narrative: General: Well-nourished, well-appearing, nontoxic 45-year-old female, sitting up in bed, comfortable, NARD Neuro: awake, alert and oriented x4, speech clear, no focal neuro deficits noted HEENMT: normocephalic, atraumatic, EOMI, sclerae anicteric, moist oral mucosa Respiratory: clear to auscultation bilaterally, nonlabored breathing Cardio: regular rate, regular rhythm with S1-S2 Abdomen: nondistended, normoactive bowel sounds, soft, nontender to palpation : Ramirez catheter patent and draining nunu colore
[2021-07-26] MEDS: SODIUM CHLORIDE 0.9% IV 1,000 ML 95 ML IV CONT (18:43)
[2021-07-27 04:00] VITALS: BP 125/69; PULSE 91; RESP 20; TEMP 36.6; O2SAT 99
[2021-07-27] MEDS: SODIUM CHLORIDE 0.9% IV 1,000 ML 95 ML IV CONT (05:26)
[2021-07-27] MEDS: lisinopriL 10 MG TABLET PO (08:59)
[2021-07-27 09:43] LABS: Hematocrit 36.5 % (37.0-47.0); Hemoglobin 12.9 g/dL (12.0-15.0); Mean Corpuscular HGB Conc 35.3 g/dl (32-36); Mean Corpuscular Hemoglobin 32.8 pg (26-34); Mean Corpuscular Volume 92.9 fl (80-100); Mean Platelet Volume 9.6 fl (7.4-10.4); Platelet Count Result 226 k/mm3 (150-375); Red Blood Count 3.93 M/mm3 (4.2-5.4); Red Cell Distribution Width 12.5 % (11.5-14.5); White Blood Count 5.9 K/mm3 (4.5-10.0)
[2021-07-27 09:58] LABS: Anion Gap 5 mmol/L (8-16); Blood Urea Nitrogen 11 mg/dL (7-17); Calcium 7.7 mg/dL (8.4-10.2); Carbon Dioxide 26 mmol/L (22-30); Chloride 103 mmol/L (98-107); Estimated CRCL calculation 150 ml/min; Estimated Glomerular Filt Rate > 60; Glucose 161 mg/dL (65-110); Potassium 3.6 mmol/L (3.4-5.0); Sodium 134 mmol/L (137-145)
[2021-07-27] MEDS: HYOSCYAMINE SULFATE 0.125 MG TABLET PO (11:16)
--- NOTE | 2021-07-27 11:51 | WPDUROPN2 ---
Progress Note: A&P Assessment and Plan (1) E. coli urinary tract infection: Code(s): N39.0 - Urinary tract infection, site not specified; B96.20 - Unspecified Escherichia coli [E. coli] as the cause of diseases classified elsewhere Status: Acute Assessment and Plan: I suggest 10 days of continued oral Levaquin that was sensitive on her culture from 07/23/21. Ok to discharge when afebrile for 24 hours. Remove steele catheter and ensure urination before discharging home. (2) Ureteropelvic junction calculus: Code(s): N20.1 - Calculus of ureter Status: Acute Assessment and Plan: She will f/u next week with Dr. Bach to discuss definitive stone surgery and to repeat urine culture. Subjective Subjective Date/Time Seen: 07/27/21 11:51 Cystoscopy, right retrograde pyelogram, right ureteral stent placement x2, Steele catheter insertion with Dr. Bach. The patient continues to improve. Her Creatinine is normal at 0.60 and WBC is normal at 5.9. She has been afebrile since yesterday. Repeat urine culture is negative, I assume since she was on oral Macrobid for 2 days prior which was culture sensitive to E-Coli from UC. She has had several doses of Rocephin, is tolerating diet, pain and activity well. Post Op day: 2 Review of Systems Respiratory: Respiratory: Reports no additional respiratory complaints Gastrointestinal: Gastrointestinal: Denies abdominal pain, Denies nausea and Denies vomiting Genitourinary: Genitourinary: Denies hematuria, Denies dysuria and Reports flank pain Exam Const: General: cooperative Resp: Effort & Inspection: normal respiratory effort Cardio: Rate: regular rate : General: Yes CVA tenderness Urinary Catheter: Urinary Catheter: patent and draining and urine dark Extrem: Right lower extremity: no edema Left lower extremity: no edema Objective Data Vital Signs Vital Signs: Vital Signs - 24 hr 07/26/21 13:31 07/26/21 14:01 07/26/21 14:55 Temperature 100.5 F H 98.9 F 99.6 F Pulse Rate 91 Respiratory Rate 14 Blood Pressure 120/69 Pulse Oximetry 96 Oxygen Delivery 07/26/21 19:49 07/26/21 20:25 07/26/21 22:01 Temperature 98.7 F 99.1 F 99.5 F Pulse Rate 102 H Respiratory Rate 20 Blood Pressure 142/72 H Pulse Oximetry 99 Oxygen Delivery 07/26/21 20:20 07/26/21 23:46 07/27/21 04:00 Temperature 98.3 F 97.9 F Pulse Rate 83 91 Respiratory Rate 18 20 Blood Pressure 111/64 125/69 Pulse Oximetry 97 99 Oxygen Delivery Room Air 07/26/21 20:23 07/27/21 08:00 Temperature Pulse Rate Respiratory Rate Blood Pressure Pulse Oximetry 97 Oxygen Delivery Room Air Room Air Intake/Output Intake/Output: Intake & Output 07/24/21 07/25/21 07/26/21 07/27/21 23:59 23:59 23:59 23:59 Intake Total 1430 4260 1600 Output Total 30 2900 1400 Balance 1400 1360 200 Meds/Results Medications: Active Medications Generic Name Dose Route Start Last Admin Trade Name Freq PRN Reason Stop Dose Admin Hydromorphone HCl 0.5 mg 07/25/21 11:11 Hydromorphone Hcl Inj (*Crx) 1 Mg/Ml Syr IV PUSH Q4H PRN Pain Rated 7-10 Hyoscyamine 0.125 mg 07/25/21 17:57 07/27/21 11:16 Hyoscyamine Sulfate 0.125 Mg Tablet PO 0.125 mg Q4H PRN Administration Bladder Spasm Sodium Chloride 1,000 mls @ 95 mls/hr 07/25/21 11:15 07/27/21 05:26 Normal Saline Iv IV CONT 95 mls/hr .[id number] ANYA Administration Ceftriaxone Sodium/Dextrose 1 gm in 50 mls @ 100 mls/hr 07/25/21 14:00 07/26/21 14:44 Rocephin 1 Gm/D5w 50 Ml IVPB Infused Q24H ANYA Infusion Lisinopril 10 mg 07/26/21 09:00 07/27/21 08:59 Lisinopril 10 Mg Tablet PO 10 mg DAILY ANYA Administration Ondansetron HCl 4 mg 07/25/21 11:11 07/26/21 20:25 Ondansetron Inj 4 Mg/2 Ml Vial IV PUSH 4 mg Q4H PRN Administration Nausea Radiology Results: ITS Impressions Retrograde Pyelogram 07/25/21 16:19
[2021-07-27 12:00] VITALS: BP 119/73; PULSE 84; RESP 20; TEMP 35.6; O2SAT 7
--- NOTE | 2021-07-27 14:43 | PM.DS ---
DS: Admitting Diagnosis Discharge Date 07/27/2021 Admitting Diagnosis UPJ calculus, UTI DS: Discharge Diagnosis Discharge Diagnosis (1) Sepsis: Code(s): A41.9 - Sepsis, unspecified organism Status: Acute Assessment and Plan: Resolved. With fever, tachycardia, tachypnea, and leukocytosis in the setting of UTI. Lactic acid levels within normal limits. Blood pressures remained stable. Tachypnea, tachycardia, and leukocytosis resolved Patient did have fever up to 103.6. Fever eventually resolved off antipyretics and she remained afebrile for >24 hours Preliminary blood cultures are negative to date. Final cultures will be monitored (2) E. coli urinary tract infection: Code(s): N39.0 - Urinary tract infection, site not specified; B96.20 - Unspecified Escherichia coli [E. coli] as the cause of diseases classified elsewhere Status: Acute Assessment and Plan: Urine culture on 07/23/2021 collected at [facility] grew pansensitive E coli. Repeat urine culture from cystoscopy on 07/25/2021 was negative Patient received IV ceftriaxone Will continue p.o. Levaquin to complete a total of 10 days of antibiotic therapy (3) Ureteropelvic junction calculus: Code(s): N20.1 - Calculus of ureter Status: Acute Assessment and Plan: Status post cystoscopy with right ureteral stent placement x2 per Dr. Bach on 07/25/2021 CT a/p following procedure showed ureteral stents in expected position with 6 mm stone in right upper pole proximal ureter. She was seen in consultation by Urology during admission She will follow-up with urology in the office in 1 week for definitive stone management Hyoscyamine as needed for bladder spasm Ramirez catheter removed on 07/27/2021 and patient was voiding independently without difficulty (4) Hydronephrosis of right kidney: Code(s): N13.30 - Unspecified hydronephrosis Status: Acute Assessment and Plan: Plan is as detailed above. (5) Hypertension: Code(s): I10 - Essential (primary) hypertension Status: Acute Assessment and Plan: Blood pressures were reviewed and remained stable Continue lisinopril (6) Hyperglycemia: Code(s): R73.9 - Hyperglycemia, unspecified Status: Acute Assessment and Plan: Patient has history of gestational diabetes. Hemoglobin A1c was 5.5%. No need for further monitoring DS: Summary Hospital Course Hospital Course: Date of admission: 07/25/2021 Date of discharge: 07/27/2021 Oneyda Griffiths is a 45-year-old female with a history of hypertension and kidney stones who?presented to the emergency department on 07/25/2021 with complaints of right flank pain and fever up to 104.0?. On presentation to the ED, she was mildly tachycardic, WBC 12.7, CT abdomen/pelvis showed right UPJ calculus with mild right hydronephrosis. She was admitted to hospitalist service for further evaluation management and was seen in consultation by Urology. Please see above for further details. She underwent cystoscopy with right ureteral stent placement x2. She tolerated this procedure well. She continued to have fevers following this procedure however fevers did improve with antibiotic therapy. She will continue antibiotics to complete a total of 10 days. Patient remained afebrile for >24 hours and sepsis resolved. She was feeling much improved and back to her usual state of health. Given overall improvement, she was determined to no longer require inpatient care. Urology in agreement with plans for discharge. Patient was feeling much better and agreed with plans for discharge home. She will follow-up with urology as an outpatient in 1 week. We discussed worrisome signs and symptoms for which to return and she was educated on her medications. She was discharged in hemodynamically stable condition on 07/27/2021 Status at Discharge Functional status at discharge: independen
== END 2021-07-27 16:15 | disposition home or self-care (01) | DRG 854 ==
LOC: ANHED 11:12 → ANH3MEDSUR 11:49
PROVIDERS: Physician Assistant; Urology; Admitting Provider Family Medicine; Emergency Provider Family Medicine; PCP Family Medicine; Visit Provider Family Medicine
PROC: 0T768DZ Dilation of Right Ureter with Intraluminal Device, Via Natural or Artificial Opening Endoscopic (ICD-10-PCS; CPT 52352; principal; 2021-07-25 16:00)
DX: A41.9 Sepsis, unspecified organism (principal); N13.6 Pyonephrosis; Z68.42 Body mass index [BMI] 45.0-49.9, adult; B96.20 Unspecified Escherichia coli [E. coli] as the cause of diseases classified elsewhere; I10 Essential (primary) hypertension; R73.9 Hyperglycemia, unspecified; E66.01 Morbid (severe) obesity due to excess calories; Q64.79 Other congenital malformations of bladder and urethra; Z20.822 Contact with and (suspected) exposure to COVID-19
CPT/HCPCS: 36415; 74018; 74176; 74420; 80048; 80053; 81001; 81025; 83036; 83605; 83735; 85025; 85027; 86140; 87040; 87077; 87086; 87088; 87186; 96365; 99285; A9270; C1769; C1887; C2617; C9803; J0131; J0696; J1741; J2250; J2405; J2704; J3010; J7030; J7120; Q9966; U0003; U0005

== ENCOUNTER 2021-08-03 13:26 | Outpatient (CLI) | payer BC, SELFPAY ==
--- NOTE | 2021-08-03 14:00 | ECG_ITS ---
Measurements Intervals [place] Rate: 78 P: 34 NH: 152 QRS: -10 QRSD: 111 T: 16 QT: 404 QTc: 462 Interpretive Statements SINUS RHYTHM LEFTWARD AXIS ABNORMAL ECG WARNING: DATA QUALITY MAY AFFECT INTERPRETATION NO PREVIOUS ECG AVAILABLE FOR COMPARISON Electronically Signed On 08-03-2021 14:46:03 CDT by Kalin Osman M.D.
== END 2021-08-03 13:27 | disposition home or self-care (01) ==
PROVIDERS: PCP Family Medicine; Visit Provider Urology
DX: I10 Essential (primary) hypertension (principal); Z01.818 Encounter for other preprocedural examination; R94.31 Abnormal electrocardiogram [ECG] [EKG]
CPT/HCPCS: 93005

== ENCOUNTER 2021-08-08 02:03 | Day surgery (SDC) | payer BC, SELFPAY ==
--- NOTE | 2021-08-03 13:02 | PC.NURSE ---
Report to the Outpatient Waiting Room, entrance under the green pavilion located off [facility], at time _1130 on date _08/08/21 . OR Time: __1330 . - You and your visitor will be asked a series of questions to screen for COVID 19 for your protection. - Only one visitor is allowed at this time. - The patient visitor is requested to leave or wait in car when not with patient. - A mask is required within the hospital. Patients may have clear liquids (water, carbonated beverages, clear teas, apple juice) until 3 hours prior to surgery with a maximum of 20 ounces. - No food from midnight until time of surgery - Infants may have breast milk until 4 hours before surgery, infant formula 6 hours prior to surgery. - Children will be allowed to drink immediately following surgery. If applicable, please bring a bottle or sippy cup to assist with drinking. Juice, water, soda, and popsicles are readily available. For infants on formula, please bring formula the day of surgery. Pacifiers are allowed. Take the following medications with a SIP of water the morning of surgery: LEVOFLOXACIN Medications to discontinue per physician ____ALL VITAMINS AND SUPPLEMENTS 3 DAYS PRE OP Date to take last dose__08/04/21 Please no make-up, nail albanian, hairspray, perfume, deodorant, or body powder the day of surgery. No jewelry (including any body piercings) or valuables the day of surgery, leave them at home. Please take a shower or bath the night before, or the morning of, surgery with an antibacterial soap. Wear comfortable, loose fitting clothing. Children are encouraged to wear pajamas. - Jewelry must be removed prior to entering the operating room. Rings and piercings that are not removed may be cut off. - The hospital will not accept responsibility for valuables. - Please leave all valuables, including medications, at home the day of surgery. If you are going home after surgery, a licensed food mobile driver must drive you home. - NO public transportation without another adult. - We recommend that an adult stay with you for 24 hours following discharge. - We also recommend that you do not drive, make important decision, drink alcoholic beverages, or take any drugs that were not prescribed by your health care provider for at least 24 hours after your discharge time. For Pediatric surgeries, we recommend two adults accompany the child home (only one inside the building at this time). Follow any additional instructions given to you from your surgeon. If you or anyone in your household have experienced Covid symptoms in the past week, please notify your surgeon or the nurse liaison at the phone number below for possible testing. Telephone instructions given to _PATIENT and asked if any additional questions and then verbalized understanding. Patient advised to call surgeon office or pre surgery nurse liaison [phone] if any additional questions.
[2021-08-03 13:10] VITALS: BMI 47.0
[2021-08-08] VITALS (8 sets, daily range): BP systolic 112–149; BP diastolic 58–82; PULSE 80–94; RESP 14–20; TEMP 36.8–37.1; O2SAT 93–99; BMI 46.0
--- NOTE | ~2021-08-08 | XR_ITS ---
EXAMINATION: XR retrograde pyelo w/stent RT DATE: 08/08/2021 13:25 CDT INDICATION: RETRO/STENT . TECHNIQUE: 80 fluoroscopic images of the right abdomen and pelvis were obtained during retrograde camila lography and stent placement performed by the surgeon. I was not present in the operating room. Fluor oscopy exposure time was 91.9 seconds. Cumulative dose was 2.89 mGy2. COMPARISON: CT abdomen pelvis 07/26/2021 FINDINGS: Cannulation of the right ureter, with sequential stent removal, wire access, contrast injection, and stent placement into the upper and lower poles respectively. Right ureteral stents accessing the uppe r and lower poles appear to be in good position in the final image. IMPRESSION: Fluoroscopic documentation of retrograde pyelography and stent placement. Reviewed, dictated and finalized at location K.
[2021-08-08] MEDS: ACETAMINOPHEN 500 MG TABLET 1000 MG PO (12:00)
--- NOTE | 2021-08-08 12:08 | WPDHPUPDATE1 ---
History and Physical Update Update Date/Time: 08/08/21 12:08 History and Physical has been reviewed, including an updated exam of the patient. There are NO changes in the patient's condition. Risks, benefits, and alternatives have been discussed and questions answered. Patient agrees to proceed with procedure.
--- NOTE | 2021-08-08 12:21 | P.PNAN_ITS ---
Anes - Initial Pre Proc Eval Procedure: Operation Date: 08/08/21 13:30 Proposed Procedures p Cystoscopy, Right Ureteroscopy, Right Retrograde Pyelogram, Right Stone Extraction, Possible Right Stent Placement, Possible Holmium Laser Procedure - Niki Bach MD Date/Time: 08/08/21 12:21 Surgeon: Niki Bach MD Pre Op Diagnosis: right ureteral stone Patient Data Age: 45 Gender: F Height: 1.7 m Weight: 136.1 kg Allergies Allergy/AdvReac Type Severity Reaction Status Date / Time Sulfa (Sulfonamide AdvReac Unknown Nausea and Verified 08/03/21 12:44 Antibiotics) Vomiting Home Medications Medication Instructions Recorded Confirmed Type hyoscyamine sulfate 0.125 mg 0.125 mg PO Q4H PRN Bladder Spasm 07/27/21 08/03/21 Rx disintegrating tablet (Anaspaz) #20 tabs levofloxacin 750 mg tablet 750 mg PO DAILY #7 tabs 07/27/21 08/03/21 Rx lisinopril 10 mg tablet 10 mg PO QNOON 08/03/21 08/03/21 History multivitamin-ferrous 1 tablet PO DAILY 08/03/21 08/03/21 History fumarate-folic acid 18 mg-400 mcg tablet Patient hx anesthesia problems: none Family hx anesthesia problems: none Results Review: All pre-operative results and documents have been reviewed as part of the pre- operative evaluation. [facility] Past Medical History Medical History Hypertension Kidney stones Surgical History Surgical History History of section x3 History of lithotripsy Family History Family History Father Hypertension Mother Hypertension Social History Social History Social History: Surrogate decision maker: Kian Griffiths, spouse. Code status: Full code. Smoking packs per day: 0.5 Smoking cigarettes per day: 10.0 Years smoked: 10 Smoking pack-years: 5.00 Smoking status: Never smoker Smoking end date: 02/17/11 Alcohol intake: never Substance use: never Living arrangements: with family Additional living arrangements comments: Lives in [place] with family. 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 Spiritual care concerns: No Anes - Eval Final PreProcedure Day of Procedure 08/08/21 12:21 Patient weight: morbidly obese Heart: regular rate and rhythm Lungs: clear to auscultation Airway: Mallampati scale class II Neurological: alert and oriented Last oral intake: >/= 8 hours ASA classification: III Emergent: no Anesthetic plan: proceed Anesthesia type and monitoring: general LMA and standard monitoring Results Review: All pre-operative results and documents have been reviewed as part of the pre- operative evaluation. Informed Consent: The patient's anesthetic plan and its attendant risks and benefits were discussed with the patient/family/POA. Questions were solicited and answers provided to the satisfaction of the patient/family/POA.
[2021-08-08] MEDS: LACTATED RINGERS 1,000 ML 30 ML IV CONT ×2 (13:03→15:30)
[2021-08-08] MEDS: LIDOCAINE HCL 2% GEL UROJET 10 ML PKG MUCOUS MEM (15:21)
--- NOTE | 2021-08-08 15:28 | W.PM.PROC2 ---
Procedure Note - Detailed Date of Procedure 08/08/21 Pre-op Diagnosis right ureteral stone Post-op Diagnosis Same Procedure Performed Cystoscopy, right ureteroscopy, laser lithotripsy, retrograde pyelogram, stent exchange x2 Surgeon Niki Bach MD Indications -right upper pole moiety with obstructing stone in proximal ureter -right lower pole moiety with only punctate stones Description of Procedure Informed consent is obtained. She was induced with anesthesia She has given preoperative IV antibiotics. She was placed in the dorsal lithotomy position. She was prepped and draped in the normal sterile fashion. We inserted a 22 F cystoscope through the urethra into the bladder. We grasped the upper pole moiety 6 F stent and brought out to the urethral meatus. We then advanced a wire and then achieved 2 wire access the 810 coaxial dilator. We advanced a flexible ureteral scope over the wire inspected the length of the ureter and identified the obstructing stone in the proximal ureter. As the stone was large we elected to place a [id number] access sheath over the wire. We then advanced a flexible ureteral scope and began laser lithotripsy and fragment the stone into approximately 5 or 6 smaller fragments. These fragments were then grasped removed. The inspected the upper pole calices and there was no residual stone. We speculated the ureter there was no residual stone over wire passed a 4.8 F double-J stent over the wire with a curl in the kidney and curl in the bladder. We then grasped the lower pole system ureteral stent a wire was placed a 10 coaxial dilator was advanced. We performed a retrograde pyelogram revealed moderate right lower pole hydronephrosis. Within over wire we advanced a ureteral scope. We inspected the midpole and lower pole calices and revealed only tiny stones that were too small to be basketed. We then inspected length of the ureter without residual stones. Over the wire we then placed a 4.8 variable length stent with a curl in the renal pelvis and curl in the bladder bladder was then emptied 10cc lidocaine were instilled patient was awakened taken recovery in stable condition. Pathology Yes Complications No immediate complications Condition Stable Disposition PACU
[2021-08-08] MEDS: ONDANSETRON INJ 4 MG/2 ML VIAL IV PUSH (16:08)
== END 2021-08-08 17:21 | disposition home or self-care (01) ==
PROVIDERS: PCP Family Medicine; Visit Provider Urology
PROC: (CPT 52352; principal; 2021-08-08 13:30)
DX: N20.1 Calculus of ureter (principal); I10 Essential (primary) hypertension; Z87.891 Personal history of nicotine dependence; E66.01 Morbid (severe) obesity due to excess calories; Z68.42 Body mass index [BMI] 45.0-49.9, adult
CPT/HCPCS: 52356; 74420; 82365; 88300; A9270; C1769; C1894; C2617; J0696; J1100; J2250; J2405; J2704; J3010; J7120; Q9966

== ENCOUNTER 2021-09-09 12:09 | Emergency (ER) | payer BC, SELFPAY ==
[2021-09-09 12:20] VITALS: BP 142/84; PULSE 77; RESP 20; TEMP 36.6; O2SAT 99
--- NOTE | 2021-09-09 13:55 | ED.GENADULT ---
HPI - General Adult General Chief complaint: Urogenital-Female Stated complaint: Possible uti Source: patient Mode of arrival: ambulatory Limitations: no limitations History of Present Illness HPI narrative: Patient presents for evaluation of right flank pain and suprapubic pressure. She presented to the ER at [facility] on 07/25/2021 with complaints of right flank pain and fever. She had CT abdomen pelvis that showed right UPJ calculus with mild right hydronephrosis she underwent cystoscopy with right ureter stent placement x2. She was septic and treated with abx. She was discharged home. She states she had stents removed and her symptoms improved. She states she was recently in [place] and returned from her vacation last night. While on her trip she began feeling sore in her right flank. She initially attributed her symptoms to previous stent placement and later thought it may be from walking on the beach. She has developed some pressure in her suprapubic region. There is also developed some urinary frequency, hesitancy, and incomplete emptying. Denies dysuria, hematuria, vaginal bleeding/discharge, fever, chills, nausea, vomiting. She states she was advised to have a follow up CT scan and was planning on calling tomorrow to have that performed. She wanted to make sure she did not have a UTI so came in here for further evaluation. Related Data Home Medications Medication Instructions Recorded Confirmed lisinopril 10 mg tablet 10 mg PO QNOON 08/03/21 09/09/21 multivitamin-ferrous 1 tablet PO DAILY 08/03/21 09/09/21 fumarate-folic acid 18 mg-400 mcg tablet Allergies Allergy/AdvReac Type Severity Reaction Status Date / Time Sulfa (Sulfonamide AdvReac Unknown Nausea and Verified 09/09/21 12:46 Antibiotics) Vomiting Review of Systems Review of Systems: CONSTITUTIONAL: Denies fever, chills, or sweats. EYES: Denies visual changes, redness, or discharge. ENT: Denies rhinorrhea, congestion, sore throat, or otalgia. CARDIOVASCULAR: Denies chest pain, palpitations, or edema. RESPIRATORY: Denies cough or dyspnea. GASTROINTESTINAL: Reports suprapubic pressure. Denies abdominal pain, nausea, vomiting, or diarrhea. GENITOURINARY:Reports urinary hesitancy, frequency and incomplete emptying. Denies any dysuria/hematuria, vaginal bleeding/discharge. SKIN: Denies rash or itching. MUSCULOSKELETAL: Denies back pain, joint pain, or myalgia. BACK: Reports right flank discomfort NEUROLOGIC: Denies headache, numbness, dizziness, or weakness. PSYCHIATRIC: Denies anxiety or depression. [facility] Past Medical History Medical History Hypertension Kidney stones Surgical History Surgical History History of section x3 History of lithotripsy Family History Family History Father Hypertension Mother Hypertension Social History Social History Social History: Surrogate decision maker: Kian Griffiths, spouse. Code status: Full code. Smoking packs per day: 0.5 Smoking cigarettes per day: 10.0 Years smoked: 10 Smoking pack-years: 5.00 Smoking status: Never smoker Smoking end date: 02/17/11 Alcohol intake: never Substance use: never Additional living arrangements comments: Lives in [place] with family. 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 Spiritual care concerns: No Course Course Emergency Course: This is a 45-year-old female who presented for evaluation of right flank discomfort and suprapubic pressure with lower urinary tract symptoms. She was concerned she may have a UTI however there were no leukocytes, white blood cells, bacteria, or nitrates on urine today. Advised to go to the hospital for further evaluation is some concern she has
== END 2021-09-09 13:55 | disposition home or self-care (01) ==
PROVIDERS: Emergency Provider Nurse Practitioner; PCP Family Medicine
DX: N23 Unspecified renal colic (principal); R31.29 Other microscopic hematuria; Z87.442 Personal history of urinary calculi; Z87.891 Personal history of nicotine dependence; I10 Essential (primary) hypertension
CPT/HCPCS: 81003; 87086; 99213; G0463

== ENCOUNTER 2021-09-17 08:29 | Outpatient (CLI) | payer BC, SELFPAY ==
--- NOTE | ~2021-09-17 | XR_ITS ---
EXAMINATION: XR abdomen/kub 1V DATE: 09/17/2021 09:09 INDICATION: Right ureteral stone. TECHNIQUE: A supine view of the abdomen on 2 radiographs was obtained. COMPARISON: CT abdomen and pelvis 09/17/2021 FINDINGS: There are no dilated loops of bowel. There is no visible urolithiasis. IMPRESSION: 1. No visible urolithiasis. Reviewed, dictated and finalized at location A. IMPRESSION: 1. No visible urolithiasis.
--- NOTE | ~2021-09-17 | CT_ITS ---
EXAMINATION: CT abdomen pelvis wo con DATE: 09/17/2021 09:04 INDICATION: Right flank pain. Right ureteral stone. TECHNIQUE: Computed tomography (CT) of the abdomen and pelvis was performed without intravenous contr ast. Automated exposure control and iterative reconstruction technique were employed. The dose-length product was 1249.60 mGy-cm. COMPARISON: CT abdomen and pelvis 07/26/2021 FINDINGS: The visualized portions of the lung bases demonstrate minimal atelectasis. No pleural effus ion. The heart size is normal. No pericardial effusion. There is diffuse hepatic steatosis. The gallb ladder, spleen, pancreas, and adrenal glands are normal. There are cysts in right kidney measuring up to 1.7 cm. There are 3 stones in left kidney measuring up to 6 mm. There is a tampon in the vagina. There is diverticulosis of the colon without evidence of diverticulitis. There are no dilated loops o f bowel. The appendix is normal. There are no pathologically enlarged lymph nodes. There is an umbili casper hernia containing fat. There is no free intraperitoneal fluid. There is mild thoracolumbar spondy losis. IMPRESSION: 1. Nonobstructing left kidney stones. 2. Diffuse hepatic steatosis. Reviewed, dictated and finalized at location A.
== END 2021-09-17 08:30 | disposition home or self-care (01) ==
PROVIDERS: PCP Family Medicine; Visit Provider Urology
DX: N20.0 Calculus of kidney (principal); K76.0 Fatty (change of) liver, not elsewhere classified
CPT/HCPCS: 74018; 74176

== ENCOUNTER → 2022-01-14 12:20 | Outpatient (CLI) | payer BC, SELFPAY ==
--- NOTE | ~2022-01-14 | MM_ITS ---
EXAMINATION: MM screening [facility] BI w braden HISTORY: Screening mammogram TECHNIQUE: Craniocaudal and mediolateral oblique 3-D tomosynthesis images were obtained and synthetic 2-D images were generated. CAD analysis was submitted and interpreted. COMPARISON: 08/17/2020, 01/11/2019, 11/13/2017 BREAST PARENCHYMAL COMPOSITION: There are scattered areas of fibroglandular density. FINDINGS: RIGHT BREAST: An asymmetry is present in the middle third of the upper breast 6.6 cm from the nipple on mediolateral oblique tomosynthesis image 63/95. LEFT BREAST: A low density masses present in the slightly inner breast best appreciated 3 cm from the nipple on craniocaudal tomosynthesis image 16/84. IMPRESSION: 1. Bilateral breast findings as above. 2. Additional mammographic views and possible breast ultrasound are recommended. BI-RADS Category 0: Incomplete: Needs additional imaging evaluation. Reviewed, dictated and finalized at location A. [employer]ING [employer]EL IMPRESSION: 1. Bilateral breast findings as above. 2. Additional mammographic views and possible breast ultrasound are recommended . BI-RADS Category 0: Incomplete: Needs additional imaging evaluation.
== END ==
PROVIDERS: PCP Family Medicine; Visit Provider Physician Assistant
DX: Z12.31 Encounter for screening mammogram for malignant neoplasm of breast (principal); R92.8 Other abnormal and inconclusive findings on diagnostic imaging of breast
CPT/HCPCS: 77063; 77067

== ENCOUNTER 2022-01-31 11:51 | Outpatient (CLI) | payer BC, SELFPAY ==
--- NOTE | ~2022-01-31 | MMUS_ITS ---
EXAMINATION: MM diagnostic [facility] BI w braden, US breast LT limited HISTORY: Left breast mass TECHNIQUE: Additional 3-D tomosynthesis images of the breasts were performed and synthetic 2-D images were generated. CAD analysis was submitted and interpreted. High resolution Limited left breast ultr asound was performed. COMPARISON: Comparison to multiple prior studies sequentially, with oldest reviewed study dated 11/13 BREAST PARENCHYMAL COMPOSITION: BREAST PARENCHYMAL COMPOSITION: There are scattered areas of fibroglandular density. FINDINGS: MAMMOGRAPHIC FINDINGS: There is a focal persistent focal asymmetry medially in the left breast on spot CC view, not confirme d on medial lateral view. There are no suspicious masses, calcifications or architectural distortion in the right breast. ULTRASOUND: Limited left breast ultrasound: Normal heterogeneous echotexture without focal solid or cystic mass. IMPRESSION: 1. Left breast asymmetry is seen on CC view only without definite sonographic correlate, likely benig n. No evidence for malignancy in the right breast. 2. Recommend 6 month follow-up diagnostic left mammogram BI-RADS category 3, probably benign findings. Reviewed, dictated and finalized at location B. 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 Left breast asymmetry is seen on CC view only without definite sonographic c orrelate, likely benign. No evidence for malignancy in the right breast. 2. Recommend 6 month follow-up diagnostic left mammogram BI-RADS category 3, probably benign findings.
== END 2022-01-31 11:52 | disposition home or self-care (01) ==
PROVIDERS: PCP Family Medicine; Visit Provider Physician Assistant
DX: R92.8 Other abnormal and inconclusive findings on diagnostic imaging of breast (principal)
CPT/HCPCS: 76642; 77062; 77066; G0279

== ENCOUNTER → 2022-07-26 09:16 | Outpatient (CLI) | payer BC, SELFPAY ==
--- NOTE | ~2022-07-26 | MMUS_ITS ---
EXAMINATION: MM diagnostic [facility] LT w braden, US breast LT limited HISTORY: Follow-up left breast asymmetry TECHNIQUE: Additional 3-D tomosynthesis images of the left breast were performed and synthetic 2-D im ages were generated. CAD analysis was submitted and interpreted. High resolution Limited left breast ultrasound was performed. COMPARISON: 01/31/2022 BREAST PARENCHYMAL COMPOSITION: BREAST PARENCHYMAL COMPOSITION: The breasts are almost entirely fatty. FINDINGS: MAMMOGRAPHIC FINDINGS: There is a small mass measuring 7 mm in the lower inner quadrant of the left breast anteriorly with c ircumscribed margins. No suspicious calcifications or architectural distortion. ULTRASOUND: Limited left breast ultrasound: At 8-9:00 there is a cluster of microcysts, largest measuring 6 mm co rresponding to the mass seen on mammography. No suspicious masses to suggest malignancy. IMPRESSION: 1. No evidence for malignancy in the left breast. Benign findings. 2. Routine yearly screening mammogram and regular clinical breast examination are recommended. BI-RADS Category 2: Benign finding(s). Reviewed, dictated and finalized at location A. IMPRESSION: 1. No evidence for malignancy in the left breast. Benign findings. 2. Routine yearly screening mammogram and regular clinical breast examination a re recommended. BI-RADS Category 2: Benign finding(s).
== END ==
PROVIDERS: PCP Obstetrics & Gynecology Gynecology; Visit Provider Family Medicine
DX: R92.8 Other abnormal and inconclusive findings on diagnostic imaging of breast (principal)
CPT/HCPCS: 76642; 77061; 77065; G0279

== ENCOUNTER → 2022-10-07 09:27 | Outpatient (CLI) | payer BC, SELFPAY ==
--- NOTE | ~2022-10-07 | US_ITS ---
EXAMINATION: US pelvic complete w TV DATE: 10/07/2022 10:06 INDICATION: Normal uterine bleeding. Comparison:No prior studies for comparison. TECHNIQUE: Multiple transabdominal and endovaginal sonographic images of the pelvis performed. FINDINGS: The uterus measures 13.2 x 6.2 x 8.5 cm. The endometrial complex measures 2.1 cm. The right ovary measures 6.4 x 4.8 x 5.3 cm and the left ovary measures 2.5 x 1.2 x 2.6 cm. There is a right ovarian cyst measuring 4.1 x 3.7 x 3.7 cm There are small follicles in each ovary. Normal dop pler signal in both ovaries. There is no free fluid in the pelvis. There are no abnormal masses seen on either side. IMPRESSION: 1. Thickened heterogeneous endometrium measuring 2.1 cm. 2: Right ovarian cyst measuring 4.1 cm. Reviewed, dictated and finalized at location B.
== END ==
PROVIDERS: PCP Family Medicine; Visit Provider Obstetrics & Gynecology Gynecology
DX: N93.8 Other specified abnormal uterine and vaginal bleeding (principal); N83.201 Unspecified ovarian cyst, right side
CPT/HCPCS: 76830; 76856

== ENCOUNTER → 2022-10-15 09:27 | Outpatient (CLI) | payer BC, SELFPAY ==
--- NOTE | ~2022-10-15 | XR_ITS ---
Supine and upright views of the abdomen Clinical history: Right ureteral stone, pain COMPARISON: 09/17/2021 Findings: Bowel gas pattern is nonspecific. No evidence for obstruction or free air. Questionable 5 m m right renal stone. Osseous structures are intact. Impression: Questionable 5 mm right renal stone. Reviewed, dictated and finalized at location M. Impression: Questionable 5 mm right renal stone.
== END ==
PROVIDERS: PCP Family Medicine; Referring Provider Obstetrics & Gynecology Gynecology; Visit Provider Urology
DX: N20.1 Calculus of ureter (principal)
CPT/HCPCS: 74018

== ENCOUNTER 2022-10-31 15:15 | Emergency (ER) | payer BC, SELFPAY ==
[2022-10-31 15:41] VITALS: BP 180/100; PULSE 98; RESP 16; TEMP 36.4; O2SAT 99
--- NOTE | 2022-10-31 18:14 | ED.FEMALEGU ---
HPI - Female Genitourinary General Chief complaint: Vaginal Bleeding Stated complaint: heavy vb Time Seen by Provider: 10/31/22 17:45 Source: patient Mode of arrival: ambulatory Limitations: no limitations History of Present Illness HPI Narrative: Patient is a 47-year-old female who presents ED with report of vaginal bleeding. Patient reports she has been having intermittent vaginal bleeding since August. She has been seeing Dr. Rose for this and taken 2 courses of oral TXA. She is scheduled to undergo hysteroscopy on 11/18. She states on Friday this week she was bleeding through a pad and tampon every hour. She called Dr. Rose's office and was advised to maintain pelvic rest, only use pads. Patient was referred to have outpatient blood work today by their office, but was then told to come here for further evaluation. Patient does report having mild dizziness/lightheadedness, fatigue. Denies syncope. Denies chest pain or shortness of breath. Denies abdominal pain. Denies nausea or vomiting. Denies urinary complaints. Patient denies history of anemia or previous need for blood transfusions. Related Data Home Medications Medication Instructions Recorded Confirmed multivitamin-ferrous 1 tablet PO DAILY 08/03/21 01/01/22 fumarate-folic acid 18 mg-400 mcg tablet Allergies Allergy/AdvReac Type Severity Reaction Status Date / Time Sulfa (Sulfonamide AdvReac Unknown Nausea and Verified 01/01/22 09:54 Antibiotics) Vomiting Review of Systems Review of Systems: CONSTITUTIONAL: Denies fever, chills, or sweats. EYES: Denies visual changes. CARDIOVASCULAR: Denies chest pain. RESPIRATORY: Denies dyspnea. GASTROINTESTINAL: Denies abdominal pain, nausea, vomiting. GENITOURINARY: See HPI. SKIN: Denies rash or itching. MUSCULOSKELETAL: Denies back pain, joint pain, or myalgia. NEUROLOGIC: See HPI. All systems reviewed & are unremarkable except as noted in HPI and below PMFSH Past Medical History Medical History Hypertension Kidney stones Surgical History Surgical History History of section x3 History of lithotripsy Family History Family History Father Hypertension Mother Hypertension Social History Social History Social History: Surrogate decision maker: Kian Griffiths, spouse. Code status: Full code. Smoking packs per day: 0.5 Smoking cigarettes per day: 10.0 Years smoked: 10 Smoking pack-years: 5.00 Smoking status: Never smoker Smoking end date: 02/17/11 Alcohol intake: never Substance use: never Living arrangements: with family Additional living arrangements comments: Lives in [place] with family. 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 Spiritual care concerns: No Exam Narrative: GENERAL: Well appearing, morbidly obese with BMI of 48.3, non-toxic, in no acute distress. HEAD: Normocephalic, atraumatic. NECK: Supple. No adenopathy, no masses. RESPIRATORY: Airway patent, respirations nonlabored. Clear to auscultation bilaterally, no rales, rhonchi, wheezing. CARDIOVASCULAR: Regular rate and rhythm without murmurs, rubs, or gallops. Radial pulses 2+ and equal bilaterally. ABDOMINAL: Soft, no tenderness throughout abdomen, nondistended, no hepatosplenomegaly. Normoactive BS. PELVIC: Normal external genitalia. Small clots seen in vaginal vault, easily removed. Minimal amount of bleeding. Easily cleared with Q-tips. No evidence for pooling of fluid or hemorrhage. No significant CMT. MUSCULOSKELETAL: Moves all extremities. Strength/ROM intact without gross deformities. SKIN: Warm, dry, normal color. No rashes. NEURO: A&O X3. Speech clear. Cranial nerves II-XII grossl
[2022-10-31 19:15] LABS: Basophils Absolute Auto 0.1 K/mm3 (0.0-0.1); Basophils Percent Auto 0.8 % (0.2-1.2); Eosinophils Absolute Auto 0.1 K/mm3 (0-0.3); Eosinophils Percent Auto 1.2 % (0-4.4); Hematocrit 38.1 % (37.0-47.0); Hemoglobin 12.8 g/dL (12.0-15.0); Immature Granulocyte Absolute 0.04 K/mm3 (0.00-0.031); Immature Granulocyte Percent A 0.5 % (0-0.5); Lymphocytes Absolute Auto 2.63 K/mm3 (0.9-3.2); Lymphocytes Percent Auto 31.2 % (18.3-44.2); Mean Corpuscular HGB Conc 33.6 g/dl (32-36); Mean Corpuscular Hemoglobin 31.1 pg (26-34); Mean Corpuscular Volume 92.7 fl (80-100); Mean Platelet Volume 9.7 fl (7.4-10.4); Monocytes Absolute Auto 0.7 K/mm3 (0.1-0.6); Monocytes Percent Auto 7.8 % (2.6-8.5); Neutrophils Absolute Auto 4.9 K/mm3 (1.3-6.7); Neutrophils Percent Auto 58.5 % (45.5-73.1); Platelet Count Result 320 k/mm3 (150-375); Red Blood Count 4.11 M/mm3 (4.2-5.4); Red Cell Distribution Width 12.6 % (11.5-14.5); White Blood Count 8.4 K/mm3 (4.5-10.0)
[2022-10-31 19:24] LABS: Anion Gap 7 mmol/L (8-16); Blood Urea Nitrogen 15 mg/dL (7-17); Calcium 8.9 mg/dL (8.4-10.2); Carbon Dioxide 25 mmol/L (22-30); Chloride 103 mmol/L (98-107); Estimated CRCL calculation 145 ml/min; Estimated Glomerular Filt Rate > 60; Glucose 102 mg/dL (65-110); Potassium 4.2 mmol/L (3.4-5.0); Sodium 135 mmol/L (137-145)
[2022-10-31 21:24] VITALS: BP 149/103; PULSE 115; RESP 16; TEMP 35.9; O2SAT 97
[2022-10-31 21:25] LABS: Appearance Urine Turbid (Clear); Color Urine Dark Yellow (Yellow)
[2022-10-31 21:26] LABS: Bilirubin Urine Negative (Negative); Blood Urine 3+ (Negative); Glucose Urine UA Negative (Negative); Ketones Urine Negative (Negative); Leukocyte Esterase Ur 1+ LEU/UL (Negative); Nitrate Urine Negative (Negative); Protein Urine 1+ mg/dL (Negative); Specific Grav Ur 1.021 (1.001-1.035); Urobilinogen Urine 0.2 mg/dL (<2.0); pH Urine 5.5 (5.0-9.0)
[2022-10-31 21:27] LABS: Add Urine Microscopic? YES; RBC Urine >100 /hpf (0-2)
[2022-10-31 21:28] LABS: Bacteria Urine None seen /hpf; Hyaline Casts Urine 0-2 /lpf
[2022-10-31 22:04] VITALS: BP 146/87; PULSE 74; RESP 16; O2SAT 98
== END 2022-10-31 22:06 | disposition home or self-care (01) ==
PROVIDERS: Emergency Provider Physician Assistant; PCP Family Medicine
DX: N93.8 Other specified abnormal uterine and vaginal bleeding (principal); R82.998 Other abnormal findings in urine; I10 Essential (primary) hypertension; Z87.442 Personal history of urinary calculi; Z87.891 Personal history of nicotine dependence
CPT/HCPCS: 36415; 80048; 81001; 85025; 86850; 86900; 86901; 87086; 87088; 99284

== ENCOUNTER 2022-11-18 02:38 | Day surgery (SDC) | payer BC, SELFPAY ==
[2022-11-11 11:18] VITALS: BMI 51.7
--- NOTE | 2022-11-11 11:23 | PC.NURSE ---
Report to the Outpatient Waiting Room, entrance under the green pavilion located off [facility], at time _0815_ on date _[id number]_. Planned Procedure Time: _1015_. Time changes happen often and if your time is changed the preop area will call you the afternoon before. - You and your visitor will be asked to self-screen and do not enter if you have any COVID symptoms. - A mask is optional within the hospital at this time. Patients may have clear liquids (water, carbonated beverages, clear teas, apple juice) until 3 hours prior to surgery with a maximum of 20 ounces. - No food from midnight until time of surgery Take the following medications with a SIP of water the morning of surgery: __None DO NOT STOP ANY OF YOUR OTHER PRESCRIPTION MEDICATIONS PRIOR TO SURGERY ?EXCEPT THE FOLLOWING Medications to discontinue per physician None Date to take last dose Please no make-up, nail burundian, hairspray, perfume, deodorant, or body powder the day of surgery. No jewelry (including any body piercings) or valuables the day of surgery, leave them at home. Please take a shower or bath the night before, or the morning of, surgery with an antibacterial soap. Wear comfortable, loose fitting clothing. - Jewelry must be removed prior to entering the operating room. Rings and piercings that are not removed may be cut off. - The hospital will not accept responsibility for valuables. - Please leave all valuables, including medications, at home the day of surgery. If you are going home after surgery, a licensed tow car driver must drive you home. - NO public transportation without another adult if you receive anesthesia. - We recommend that an adult stay with you for 24 hours following discharge. - We also recommend that you do not drive, make important decision, drink alcoholic beverages, or take any drugs that were not prescribed by your health care provider for at least 24 hours after your discharge time. Follow any additional instructions given to you from your surgeon. If you or anyone in your household have experienced Covid symptoms in the past week, please notify your surgeon or the nurse liaison at the phone number below for possible testing. Telephone instructions given to _Patient__and asked if any additional questions and then verbalized understanding. Patient advised to call surgeon office or pre surgery nurse liaison [phone] if any additional questions.
--- NOTE | 2022-11-18 07:37 | WPDHPUPDATE1 ---
History and Physical Update Update Date/Time: 11/18/22 07:37 History and Physical has been reviewed, including an updated exam of the patient. There are NO changes in the patient's condition. Risks, benefits, and alternatives have been discussed and questions answered. Patient agrees to proceed with procedure.
--- NOTE | 2022-11-18 07:37 | PM.HPGS ---
History of Present Illness History of Present Illness Consent: Risks, benefits, and alternatives have been discussed and questions answered. Patient agrees to proceed with procedure. Chief complaint: Menorrhagia Narrative: Oneyda Griffiths is a 47 year old female with worsening heavy menstrual cycles. Pelvic ultrasound shows a thickened endometrium at 2.1cm. Otherwise pelvic ultrasound and labs are normal. Patient did have an emergency room visit in the middle of October due to heavy bleeding. It was recommended to proceed with D&C hysteroscopy. Risks of infection, bleeding, perforation, and fluid imbalance are reviewed. Patient voices understanding and agrees to proceed. Review of Systems Review of Systems: not repeated day of surgery; patient states no changes in status [facility] Past Medical History Medical History Hypertension Kidney stones Surgical History Surgical History History of section x3 History of lithotripsy Family History Family History Father Hypertension Mother Hypertension Social History Social History Social History: Surrogate decision maker: Kian Griffiths, spouse. Code status: Full code. Smoking packs per day: 0.5 Smoking cigarettes per day: 10.0 Years smoked: 15 Smoking pack-years: 7.50 Smoking status: Former smoker Smokeless tobacco user: chewing tobacco Smoking end date: 11/11/12 Alcohol intake: never Substance use: never Living arrangements: with family Additional living arrangements comments: Lives in [place] with family. 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 Spiritual care concerns: No Meds Home Medications and Allergies Home Medications Medication Instructions Recorded Confirmed Type lisinopril 10 mg tablet See Rx Instructions .Route 08/05/22 11/11/22 Rx .COMPLEX #90 tabs Allergies Allergy/AdvReac Type Severity Reaction Status Date / Time Sulfa (Sulfonamide AdvReac Unknown Nausea and Verified 11/11/22 11:17 Antibiotics) Vomiting Exam Const: General: healthy appearing and alert Orientation/consciousness: patient oriented x3 Resp: Effort & Inspection: normal respiratory effort Auscultation: clear to auscultation bilaterally Cardio: Rate: regular rate Rhythm: regular rhythm GI: GI Palp: Yes Soft to palpation, No Tenderness to palpation present (GI) and No Palpable mass present : External Female Exam: normal external appearance Speculum Exam - Vagina: normal appearance of the vagina and normal vaginal discharge Speculum Exam - Cervix: normal appearance of the cervix Bimanual exam- vagina & uterus: consistency normal and enlarged (Thirteen week size) Bimanual Exam- Adnexa, other: normal adnexae and No adnexal tenderness Neuro: General: patient oriented x3 Assessment and Plan Assessment and plan (1) Menorrhagia: Code(s): N92.0 - Excessive and frequent menstruation with regular cycle Status: Acute Assessment and Plan: Plan to proceed with D&C hysteroscopy
[2022-11-18] MEDS: ACETAMINOPHEN 500 MG TABLET 1000 MG PO (10:00)
[2022-11-18] MEDS: LACTATED RINGERS 1,000 ML 30 ML IV CONT (10:00)
[2022-11-18 10:10] VITALS: BP 130/94; PULSE 76; RESP 16; TEMP 36.8; O2SAT 100
--- NOTE | 2022-11-18 10:29 | WPDANESEPPF ---
Anes - Initial Pre Proc Eval Procedure: Operation Date: 11/18/22 11:15 Proposed Procedures p Hysteroscopy Dilation and Curettage - Josiane Rose MD Date/Time: 11/18/22 10:29 Surgeon: Josiane Rose MD Pre Op Diagnosis: Menorrhagia Patient Data Age: 47 Gender: F Height: 1.7 m Weight: 149.4 kg Last Vital Signs Temp 36.8 C 11/18/22 10:10 Pulse 76 11/18/22 10:10 Resp 16 11/18/22 10:10 BP 130/94 H 11/18/22 10:10 Pulse Ox 100 11/18/22 10:10 O2 Del Method Room Air 11/18/22 10:10 Allergies Allergy/AdvReac Type Severity Reaction Status Date / Time Sulfa (Sulfonamide AdvReac Unknown Nausea and Verified 11/18/22 10:14 Antibiotics) Vomiting Home Medications Medication Instructions Recorded Confirmed Type lisinopril 10 mg tablet See Rx Instructions .Route 08/05/22 11/11/22 Rx .COMPLEX #90 tabs Patient hx anesthesia problems: none Family hx anesthesia problems: none Results Review: All pre-operative results and documents have been reviewed as part of the pre-operative evaluation. [facility] Past Medical History Medical History (Updated 11/18/22 @ 10:29 by David Liu MD) Hypertension Kidney stones Morbid obesity Surgical History Surgical History History of section x3 History of lithotripsy Family History Family History Father Hypertension Mother Hypertension Social History Social History Social History: Surrogate decision maker: Kian Griffiths, spouse. Code status: Full code. Smoking packs per day: 0.5 Smoking cigarettes per day: 10.0 Years smoked: 15 Smoking pack-years: 7.50 Smoking status: Former smoker Smokeless tobacco user: chewing tobacco Smoking end date: 11/11/12 Alcohol intake: never Substance use: never Living arrangements: with family Additional living arrangements comments: Lives in [place] with family. 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 Spiritual care concerns: No Anes - Eval Final PreProcedure Day of Procedure 11/18/22 10:29 Patient weight: morbidly obese Heart: regular rate and rhythm Lungs: clear to auscultation Airway: Mallampati scale class II Neurological: alert and oriented Last oral intake: >/= 8 hours ASA classification: III Emergent: no Anesthetic plan: proceed Anesthesia type and monitoring: general GIVS and standard monitoring Results Review: All pre-operative results and documents have been reviewed as part of the pre-operative evaluation. Informed Consent: The patient's anesthetic plan and its attendant risks and benefits were discussed with the patient/family/POA. Questions were solicited and answers provided to the satisfaction of the patient/family/POA.
[2022-11-18] MEDS: KETOROLAC 30 MG/ML VIAL (*BKC) IV PUSH (11:28)
--- NOTE | 2022-11-18 11:32 | W.PM.PROC2 ---
Procedure Note - Detailed Date of Procedure 11/18/22 Pre-op Diagnosis Menorrhagia Post-op Diagnosis Same Procedure Performed D&C hysteroscopy Surgeon Josiane Rose MD Anesthesia MAC Findings The cervix is stenotic. The uterus is anteverted and sounds to 13cm. The endometrial cavity is generally thickened with invaginations. Description of Procedure The patient is taken to the operating room and placed under anesthesia in the dorsal lithotomy position. She was prepped and draped in the usual sterile fashion. [place] speculum was placed in the vagina and the cervix is not visible. The long Graves speculum was then placed and the cervix is visible. The cervix was grasped on the anterior lip with a tenaculum. The sound is used and unable to enter past 2cm. The Hegar dilators are unable to pass the internal cervix. The os Finders were opened and placed and the internal os is able to be entered. The uterus was then sounded to 13cm. The hysteroscope is used to hydrodissect the cervix and enter the endometrial cavity. The cavity is as above. The Aveeta resection device is opened and placed. The posterior wall thickening is removed in its entirety. Upon attempting to remove the anterior thickening the camera quit functioning. As there were no discrete lesions, decision was made to proceed with curettage. The endometrium is sharply curettaged with a good uterine cry noted in all areas at the completion. All instruments are removed. Sponge, needle, and instrument counts are correct per the OR staff. Patient was awakened from anesthesia and taken to recovery in stable condition. Estimated Blood Loss 5 Drains No Packing No Pathology Yes (Endometrial shavings and curettings) Complications No immediate complications Condition Stable Disposition PACU
[2022-11-18 11:35] VITALS: BP 143/68; PULSE 78; RESP 16; O2SAT 98
[2022-11-18] MEDS: oxyCODONE HCL (*CRX) 5 MG TAB IR PO (11:55)
[2022-11-18 12:00] VITALS: BP 128/84; PULSE 75; RESP 20
[2022-11-18 12:25] VITALS: BP 121/77; PULSE 62; RESP 20
== END 2022-11-18 12:31 | disposition home or self-care (01) ==
PROVIDERS: PCP Family Medicine; Visit Provider Obstetrics & Gynecology Gynecology
PROC: 0U5B8ZZ Destruction of Endometrium, Via Natural or Artificial Opening Endoscopic (ICD-10-PCS; CPT 58563; principal; 2022-11-18 11:15)
DX: N92.0 Excessive and frequent menstruation with regular cycle (principal); N84.0 Polyp of corpus uteri; I10 Essential (primary) hypertension; Z87.891 Personal history of nicotine dependence; E66.01 Morbid (severe) obesity due to excess calories; Z68.43 Body mass index [BMI] 50.0-59.9, adult
CPT/HCPCS: 58558; 88305; A9270; J1100; J1885; J2250; J2405; J2704; J3010; J7120

== ENCOUNTER → 2023-01-20 12:18 | Outpatient (CLI) | payer BC, SELFPAY ==
--- NOTE | ~2023-01-20 | CT_ITS ---
Non-contrast CT scan of the Abdomen and Pelvis Clinical indication: Right ureteral stone Technique: 2.5 mm axial scans were obtained through the abdomen and pelvis without intravenous or or al contrast. Dose reduction technique was used on this scan by utilizing automated exposure control a nd iterative reconstruction technique. The dose-length product (DLP) was 1145.37 mGy-cm. Findings: Images through the lung bases reveal no abnormalities. There are bilateral nonobstructing renal stones, measuring up to 1 cm in size on the right, and 5 mm in size on the left. No ureteral stone or hydronephrosis on either side. There is diffuse fatty infiltration of the liver. The spleen, pancreas, gallbladder, and adrenals marcia ear normal. There is no aortic aneurysm. There is no evidence of bowel obstruction. Images through the pelvis were performed. There is no evidence of ascites or lymphadenopathy. Urinary bladder unremarkable. No pelvic mass seen. No ascites. Impression: Bilateral nonobstructing renal stones, as above. Diffuse fatty infiltration of the liver. Reviewed, dictated and finalized at [facility]. 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 Diffuse fatty infiltration of the liver.
--- NOTE | ~2023-01-20 | XR_ITS ---
XR abdomen/kub 1V 01/20/2023 12:44 INDICATION: Right ureteral stone TECHNIQUE: KUB COMPARISON: 10/15/2022 FINDINGS: Bowel gas pattern is normal. There is no evidence of free air, mass, organomegaly, ascites or obstruction. No abnormal calculi are seen. The bones appear intact. IMPRESSION: 1: No acute abdominal abnormality identified. Reviewed, dictated and finalized at location B. 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
== END ==
PROVIDERS: PCP Urology; Visit Provider Urology
DX: N20.1 Calculus of ureter (principal); K76.0 Fatty (change of) liver, not elsewhere classified
CPT/HCPCS: 74018; 74176

== ENCOUNTER 2023-10-02 10:24 | Outpatient (CLI) | payer BC, SELFPAY ==
--- NOTE | ~2023-10-02 | MM_ITS ---
EXAMINATION: MM screening adrienne BI w braden HISTORY: Screening TECHNIQUE: Craniocaudal and mediolateral oblique 3-D tomosynthesis images were obtained and synthetic 2-D images were generated. CAD analysis was submitted and interpreted. COMPARISON: Comparison to multiple prior studies sequentially, with oldest reviewed study dated 11/13. BREAST PARENCHYMAL COMPOSITION: Not Dense: The breasts are almost entirely fatty. FINDINGS: There is no evidence of suspicious mass, calcification, or architectural distortion to sugg est malignancy in either breast. There has been no suspicious interval change. IMPRESSION: 1. No mammographic evidence of malignancy. 2. Recommend routine screening mammography in one year. BI-RADS Category 1: Negative Reviewed, dictated and finalized at location B.
== END 2023-10-02 10:25 ==
LOC: MICIMG 10:24
PROVIDERS: PCP Family Medicine
DX: Z12.31 Encounter for screening mammogram for malignant neoplasm of breast (principal)
CPT/HCPCS: 77063; 77067

== ENCOUNTER 2023-10-30 09:18 | Outpatient (CLI) | payer BC, SELFPAY ==
--- NOTE | ~2023-10-30 | XR_ITS ---
EXAMINATION: XR abdomen/kub 1V DATE: 10/30/2023 09:35 INDICATION: Bilateral kidney stones. TECHNIQUE: A supine view of the abdomen on 2 radiographs was obtained. COMPARISON: Abdomen radiographs 01/20/2023, CT abdomen and pelvis 01/20/2023 FINDINGS: There are no dilated loops of bowel. There are phleboliths in the pelvis. IMPRESSION: 1. No visible urolithiasis. Reviewed, dictated and finalized at location A. IMPRESSION: 1. No visible urolithiasis.
== END 2023-10-30 09:19 | disposition home or self-care (01) ==
PROVIDERS: PCP Family Medicine; Visit Provider Nurse Practitioner Family
DX: N20.0 Calculus of kidney (principal)
CPT/HCPCS: 74018

== ENCOUNTER 2024-01-29 12:46 | Outpatient (CLI) | payer BC, SELFPAY ==
--- NOTE | ~2024-01-29 | CT_ITS ---
EXAMINATION: CT abdomen pelvis wo/w con DATE: 01/29/2024 13:32 INDICATION: Right flank pain. TECHNIQUE: Computed tomography (CT) of the abdomen and pelvis was performed without and with intraven ous contrast using a total of 130 mL Omnipaque-350 intravenous contrast with a double-bolus technique for simultaneous opacification of the renal parenchyma and renal collecting system. Automated exposu re control and iterative reconstruction technique were employed. The dose-length product was 2279.09 mGy-cm. COMPARISON: CT abdomen and pelvis 01/20/2023 FINDINGS: The visualized portions of the lung bases demonstrate minimal atelectasis. No pleural effusion. The h eart size is normal. No pericardial effusion. There is diffuse hepatic steatosis. The gallbladder, pa ncreas, spleen, and adrenal glands are normal. There are cysts in right kidney measuring up to 10 mm. 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 There are 11 mm and 8 mm stones in right kidney lo wer pole. There is a 3.2 cm stone in right lower pole renal pelvis with wall thickening of proximal u reter. There is severe hydronephrosis of right kidney inferior pole. There is heterogeneous contrast opacification of the urinary in right kidney lower pole. Right kidney upper pole ureter is normal. Th ere are 3 stones in left kidney measuring up to 5 mm. Left ureter is well opacified and is normal. Th ere is diverticulosis of the colon without evidence of diverticulitis. The appendix is normal. There are no dilated loops of bowel. There are no pathologically enlarged lymph nodes. There is no free int raperitoneal fluid. There is a small supraumbilical ventral hernia containing fat. There is mild thor acic and lumbar spondylosis. IMPRESSION: 1. 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 Ureteral wall thickening suggesting inflammation or infection. 2. Bilateral nonobstructing kidney stones. Reviewed, dictated and finalized at location A. 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 Ureteral wall thickening suggesting in flammation or infection. 2. Bilateral nonobstructing kidney stones.
[2024-01-29 13:08] LABS: Estimated Glomerular Filt Rate > 60
== END 2024-01-29 12:47 | disposition home or self-care (01) ==
LOC: MICIMG 12:47
PROVIDERS: PCP Family Medicine
DX: R10.9 Unspecified abdominal pain (principal); N20.0 Calculus of kidney
CPT/HCPCS: 74178; Q9967

== ENCOUNTER 2024-07-09 11:34 | Outpatient (CLI) | payer BC, SELFPAY ==
--- NOTE | ~2024-07-09 | US_ITS ---
Left arm ULTRASOUND (Doppler ultrasound interrogation techniques used as needed for this exam.) Ordering provider: Baldomero Velazquez PA-C History: . cyst/nodule palm left hand . Comparison: None. FINDINGS/impression: 0.4 x 0.3 x 0.3 cm hypoechoic area with no color flow is seen highly suggestive of ganglion cyst. Oth er differential is not excluded Further evaluation and clinical correlation advised. Reviewed, dictated and finalized at location A.
== END 2024-07-09 11:35 | disposition home or self-care (01) ==
LOC: GOSHIMG 11:35
PROVIDERS: PCP Family Medicine; Visit Provider Physician Assistant
DX: R22.32 Localized swelling, mass and lump, left upper limb (principal)
CPT/HCPCS: 76882

== ENCOUNTER 2024-10-12 20:04 | Emergency (ER) | payer BC, SELFPAY ==
--- OUTSIDE RECORDS SUMMARY | 2024-10-09 12:30 | XMS_ITS | Encounter Summary ---
Author Organization [facility] Healthcare Address [address] [place] [address] Care Team Providers Care Sports Marketer Name Role Phone Jarek Mayo MD Primary Care Provider Niki Bach MD Unavailable [phone] Reason for Visit * Reason Comments Urinary Symptom UTI Symptoms- low ba ck pain, pressure in her bladder. Onset last night. OTC Ibuprofen and Tylenol. Last OTC was Tylenol at 10 PM last night. Hx of kidney stones. Encounter Details Date Type Department Care Team (Late st Contact Info) Description 10/09/2024 12:30 PM CDT Office Visit [facility] [place] [address] [place] [id number] Selam James, MARNI [address] [place] [address] Flank pain (Primary Dx); Other microscopic hematuria Social History Tobacco Use Types Packs/Day Years Used Date Smoking Tobacco: Former Cigarettes 0.5 19 1 992 - 2010 Smokeless Tobacco: Never Tobacco Cessation:Counseling Given: Not Answered Alcohol Use Standard Drinks/Week Comments No 0 (1 standard drink = 0.6 oz pur e alcohol) AUDIT-C Answer Date Recorded Q1: How often do you have a drink containing alcohol? Never 03/15/2024 Q2: How many drinks containi ng alcohol do you have on a typical day when you are drinking? Patient does not drink Frequency of Binge Drinking Not on file 02/18 Personal Safety Answer Date Recorded Have you ever been in or are you currently in a harmful physical or emotional relationship or is someone making you feel afraid or unsafe? 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 Gender Identity Not on file Sexual Orientation Not on file documented as of this encounter Last Filed Vital Signs Vital Sign Reading Time Taken Comments Blood Pressure 126/82 10/09/2024 12:18 PM CDT Pulse 79 10/09/2024 12:18 PM CDT Temperature 36.1 C (97 F) 10/09/2024 12:18 PM CDT Respiratory Rate 16 10/09/2024 12:18 PM CDT Oxygen Saturation 97% 10/09/2024 12:18 PM CDT Inhaled Oxygen Concentration - - Weight 148.3 kg (327 lb) 10/09/2024 12:18 PM CDT Height 170.2 cm (5' 7) 10/09/2024 12:18 PM CDT Body Mass Index 51.22 10/09/2024 12:18 PM CDT documented in this encounter Patient Instructions * Patient Instructions* Selam James, STEAM BONE PRESS TENDER - 10/09/2024 12:30 PM CDT -Drink as much water as possible to help flush bacteria from your bladder. -Finish all of the medication prescribed to you. -Use alternate method of control while taking antibiotics and for one week after finishing antibiotics, if applicable. -Avoid foods and drinks that can irritate your bladder, such as caffeine, alcohol, chocolate, tomato products, coffee and tea, citrus fruits, spicy foods, and carbonated beverages. -Make sure you wipe from front to back after urinating -Always urinate before and after intercourse -Avoid intercourse until symptoms resolve. -Follow up with Jarek Mayo MD with symptoms that worsen or do not COMPLETELY resolve. Go to ER immediately if: ? You are urinating very little or not at all. ? You are nauseous and/or vomiting. ? You have a high fever with shaking chills. ? You have side or back pain that gets worse. ? Contact your primary care doctor or MARINE UNDERWRITER if: ? You have white or yellow discharge from your vagina. ? You do not start to feel better after 2-3 days of taking antibiotics. ? You have questions or concerns about your condition or care documented in this encounter Ordered Prescriptions Prescription Sig Dispense Quantity Refills Last Filled Start Date End Date nitrofurantoin monohydrate (Macrobid) 100 mg capsule Take 1 capsule (100 mg total) by mouth 2 (two) times a day for 5 days 10 capsule 10/11/2024 5 cephalexin (KEFLEX) 500 mg capsule Take 1 capsule (500 mg total) by mouth 3 (three) times a day for 7 days 21 capsule 10/09/2024 5 documented in this encounter Progress Notes * Selam James NP - 10/09/2024 12:30 PM CDT This patient has verbally consented to recording this visit in order to utilize AI technology in generating this note. Subjective/Objective Patient ID: Oneyda Griffiths is a 49 y.o. female. Chief Complaint Urinary Symptom (UTI Symptoms- low back pain, pressure in her bladder. Onset last night. OTC Ibuprofen and Tylenol. Last OTC was Tylenol at 10 PM last night. Hx of kidney stones. ) History of Present Illness Oneyda Griffiths is a 49 year old female with kidney stones who presents with left- sided back pain and lower abdominal discomfort She experiences onset of throbbing in the left flank area for the last couple of days. Temporary relief was achieved with a pool session, Epsom salt bath, ibuprofen, and Tylenol. She has a history ofkidney stones, with a significant episode three years ago requiring hospitalization. A CT scan in February showed a large kidney stone, which was treated, and additional stones were noted on the left side. A follow-up CT scan is scheduled for October 25. She has not had any issues on the left side until a couple of days ago She experiences bladder pressure that began last night but denies dysuria, burning sensation, or increased urgency. She consumes water exclusively and frequently. Recent symptoms include mild nausea.She denies fever, vomiting. Physical Exam Vitals reviewed. Cardiovascular: Rate and Rhythm: Normal rate and regular rhythm. Heart sounds: Normal heart sounds. Pulmonary: Effort: Pulmonary effort is normal. No respiratory distress. Breath sounds: Normal breath sounds. Abdominal: Tenderness: There is no right CVA tenderness or left CVA tenderness. Neurological: Mental Status: She is alert. Mental status is at baseline. Psychiatric: Mood and Affect: Mood normal. Behavior: Behavior normal. Vitals: 10/09/24 1218 BP: 126/82 Pulse: 79 Resp: 16 Temp: 36.1 ??C (97 ??F) TempSrc: Temporal SpO2: 97% Weight: (!) 148.3 kg (327 lb) Height: 170.2 cm (5' 7) Assessment & Plan Genitourinary symptoms with hematuria and history of nephrolithiasis No CVA tenderness Urinalysis indicated white blood cells and blood, suggesting infection or nephrolithiasis. - Start antibiotic treatment with cephalexin and send urine culture. - Advise ER visit if pain worsens or fever vomiting develops, follow up with Urology if symptoms persist Friday.. Assessment & Plan Flank pain Orders: POCT urinalysis dipstick Urine culture Urine, clean voided; Future Other microscopic hematuria Recent Results (from the past 24 hours) POCT urinalysis dipstick Collection Time: 10/09/24 12:28 PM Result Value Ref Range Color, Urine, POC Light Yellow Clarity, ur, POC Cloudy (A) Clear Glucose, ur, POC Negative Negative Bilirubin, ur, POC Negative Negative Ketones, ur, POC Negative Negative Specific [place], POC Blood, ur, POC Moderate (A) Negative pH, ur, POC 5.5 5.0 - 8.0 Protein, ur, POC Negative Negative Urobilinogen, urine, POC 0.2 0.2 - 1.0 mg/dL Nitrite, ur, POC Negative Negative Leukocytes, ur, POC Small (A) Negative Lot Number [id number] Selam James NP documented in this encounter Miscellaneous Notes * Addendum Note - Arpan Dela Cruz NP - 10/09/2024 12:30 PM CDTAddended by: ARPAN DELA CRUZ on: 10/11/2024 05:03 PM Modules accepted: Orders documented in this encounter Plan of Treatment Not on file documented as of this encounter Procedures Procedure Name Priority Date/Time Associated Diagnosis Comments POCT URINALYSIS DIPSTICK Routine 10/09/2024 12:28 PM CDT Flank pain documented in this encounter Results * (ABNORMAL) Urine culture Urine, clean voided (10/09/2024 5:34 PM CDT) Report Final Report: Greater than or equal to 100,000 colonies/mL of Escherichia coli The susceptibility pattern of this Escherichia coli indicates the possible production of an extended spectrum beta lactamase (ESBL). Patients infected with ESBL-producing organisms require contact isolation precautions. For therapeutic options for this organism, please contact infectious diseases. Plus growth of clinically insignificant bacterial amy. (.) Comment:Testing performed by : [facility], [address] [place]., [address] Organism ESCHERICHIA COLI [facility] Organism PLUS GROWTH OF CLINICALLY INSIGNIFICANT AMY. [facility] Urine, clean voided 10/09/2024 5:34 PM CDT 10/09/2024 8:01 PM CDT Narrative [facility] - 10/12/2024 6:00 PM CDT Testing performed by [facility] Microbiology Laboratory ([phone]) Organism Antibiotic Method Susceptibility Escherichia coli Ampicillin INTERPRETATION Resistant Escherichia coli Cefazolin INTERPRETATION Resistant Escherichia coli Nitrofurantoin INTERPRETATION Susceptible Escherichia coli Gentamicin INTERPRETATION Susceptible Escherichia coli Trimethoprim with Sulfamethoxazole INTERPRETATION Susceptible Escherichia coli Meropenem INTERPRETATION Susceptible Escherichia coli Cefepime INTERPRETATION Susceptible Dose-dependent Escherichia coli Ciprofloxacin INTERPRETATION Resistant Escherichia coli Ceftazidime INTERPRETATION Susceptible Escherichia coli Ceftriaxone INTERPRETATION Resistant Escherichia coli Cephalexin INTERPRETATION Resistant Escherichia coli Cefuroxime-axetil INTERPRETATION Resistant Escherichia coli Cefdinir INTERPRETATION Resistant Escherichia coli Amikacin INTERPRETATION Susceptible Escherichia coli Aztreonam INTERPRETATION Susceptible Escherichia coli Imipenem INTERPRETATION Susceptible Escherichia coli Ertapenem INTERPRETATION Susceptible Escherichia coli Minocycline INTERPRETATION Susceptible Escherichia coli Tobramycin INTERPRETATION Susceptible Escherichia coli Levofloxacin INTERPRETATION Resistant Escherichia coli Doxycycline INTERPRETATION Susceptible Escherichia coli Ampicillin with Sulbactam INTERPRETAT ION Intermediate Escherichia coli Fosfomycin INTERPRETATION Susceptible Selam James NP LAB MICROBIOLOGY - GENERAL ORD ERABLES Final Result [facility] [address] [place] [address] * (ABNORMAL) POCT urinalysis dipstick (10/09/2024 12:28 PM CDT) Color, Urine, POC Light Yellow Clarity, ur, POC Cloudy(A) Clear Glucose, ur, POC Negative Negative Bilirubin, ur, POC Negative Negative Ketones, ur, POC Negative Negative Specific [place], POC Comment:<=1.005 Blood, ur, POC Moderate(A) Negative pH, ur, POC 5.5 5.0 - 8.0 Protein, ur, POC Negative Negative Urobilinogen, urine, POC 0.2 0.2 - 1.0 mg/dL Nitrite, ur, POC Negative Negative Leukocytes, ur, POC Small(A) Negative Lot Number [id number] Urine 10/09/2024 12:2 8 PM CDT Selam James NP POINT OF CARE TEST ORDERABLES Final Result documented in this encounter Visit Diagnoses Diagnosis Flank pain- Primary Abdominal pain, unspecified site Other microscopic hematuria Flank pain Abdominal pain, unspecified site documented in this encounter Discontinued Medications Medication Sig Discontinue Reason Start Date End Da te cephalexin (KEFLEX) 500 mg capsule Take 1 capsule (500 mg total) by mouth 3 (three) times a day for 7 days Alternate therapy 10/09/2024 10/11/2024 documented as of this encounter Additional Health Concerns Infection Onset Date Last Indicated Resolved Time MDR gram neg/ESBL 10/09/2024 10/09/2024 documented as of this encounter Care Teams Sports Marketer Relationship Specialty Start Date End Date Jarek Mayo MD [address] [place] [address] PCP - General Family Medicine 12/12/23 Niki Bach MD [address] [place] [address] Consulting Physician Urology 03/25/24 documented as of this encounter
--- NOTE | ~2024-10-12 | CT_ITS ---
EXAMINATION: CT abdomen pelvis wo con DATE: 10/12/2024 20:53 INDICATION: Left flank pain TECHNIQUE: Computed tomography (CT) of the abdomen and pelvis was performed with 100 mL Omnipaque-350 intravenous contrast. Automated exposure control and iterative reconstruction technique were employed. The dose-length product was 1393.81 mGy-cm. COMPARISON: 01/29/2024 FINDINGS: Lung bases are clear. Heart size is normal. No pericardial or pleural effusion. Diffuse hepatic steatosis with focal sparing along the gallbladder fossa. Gallbladder, spleen, pancreas and bilateral adrenal glands are normal. Left- sided nephrolithiasis with 4 stones at lower pole calyces of the left kidney measuring up to 8 mm and with an 8 mm stone at the mid left ureter without hydronephrosis. No right-sided urolithiasis or hydronephrosis. There are few scattered clonic diverticula without adjacent inflammatory stranding to suggest diverticulitis. Small bowel and appendix are normal. Bladder is decompressed. The uterus is not identified and has likely been surgically resected. Small fat-containing umbilical and supraumbilical ventral hernias. No free intraperitoneal gas or fluid. No pathologically enlarged abdominal or pelvic lymphadenopathy. Transitional sacralized L5 segment. IMPRESSION: 1. Left nephrolithiasis with 8 mm stone at the mid left ureter without hydronephrosis. 2. Prominent diffuse hepatic steatosis. 3. Small fat-containing umbilical and supraumbilical ventral hernias. Reviewed, dictated and finalized at location A. IMPRESSION: 1. Left nephrolithiasis with 8 mm stone at the mid left ureter without hydronep hrosis. 2. Prominent diffuse hepatic steatosis. 3. Small fat-containing umbilical and supraumbilical ventral hernias.
[2024-10-12 20:05] VITALS: BP 149/104; PULSE 130; RESP 20; TEMP 36.4; O2SAT 95
--- OUTSIDE RECORDS SUMMARY | 2024-10-12 20:30 | XMS_ITS | Clinical Summary ---
Author Organization [address] Address [address] [place] [id number] Care Team Providers Care Top Cager Name Role Phone Jarek Mayo MD Primary Care Provider Niki Bach MD Unavailable [phone] Allergies Active Allergy Reactions Criticality Noted Date Comments Sulfa Nausea & Vomiting Low 10/09/2024 Sulfanilamide Nausea only,Vomiting Reaction: Nausea, Vomiting, Medications multivitamin-Ca- iron-minerals tablet Take by mouth. Active lisinopriL (PRINIVIL,ZESTRI L) 10 mg tablet Take 1 tablet (10 mg total) by mouth daily 3 Active nitrofurantoin monohydrate (Macrobid) 100 mg capsule Take 1 capsule (100 mg total) by mouth 2 (two) times a day for 5 days 10 capsule 5 10/17/19 25 Active cephalexin (KEFLEX) 500 mg capsule Take 1 capsule (500 mg total) by mouth 3 (three) times a day for 7 days 21 capsule 5 10/12/19 25 Discontinu ed(Alterna te therapy) Active Problems Problem Noted Date Diagnosed Date Calculus of ureter 02/09/2024 Encounters Date Type Department Care Team Description 10/10/2024 Results Follow-Up [facility] Medical [facility] Care at [place] [address] [place] [address] Selam James, MARNI Urine culture Urine, clean voided 10/09/2024 5:34 PM CDT - 10/09/2024 11:59 PM CDT Hospital Encounter [facility] [address] [place] [address] Flank pain Discharge Disposition: Discharge to home or self care 10/09/2024 12:30 PM CDT Office Visit [facility] [place] [address] [place] [address] Selam James NP Flank pain (Primary Dx); Other microscopic hematuria from Last 3 Months Surgical History Surgery Date Site/Laterality Comments SECTION 06/15/1999, 08/27/2002, 01/08/2013 HYSTERECTOMY 12/18/2022 - 01/16/2023 LITHOTRIPSY 08/17/2002 - 09/16/2002 KIDNEY STONE SURGERY 06/17/2021 - 07/17/2021 NEPHROURETERAL STENT PLACEMENT NEW ACCESS RIGHT 03/23/2024 Right URETERAL STENT PLACEMENT VIA EXISTING TRACT RIGHT 03/24/2024 Right Medical History Medical History Date Comments Hypertension Morbid obesity (HCC) BMI 54 Calculus of ureter Kidney stone Family History Medical History Relation Name Comments Coronary artery disease Father Acrolee nary artery disease; Diabetes Father Hypertension Father Other Father Alive and well; Diabetes Maternal Grandmother Diabete s mellitus; Other Maternal Grandmother Alive a nd well; Hyperlipidemia Mother Hypertension Mother Hypertension; Other Mother Alive and well; /crohns; Relation Name Status Comments Brother Alive Father Alive Maternal Grandmother Alive Mother Alive Social History Tobacco Use Types Packs/Day Years Used Date Smoking Tobacco: Former Cigarettes 0.5 19 1 - 2010 Smokeless Tobacco: Never Tobacco Cessation:Counseling [...] on file 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 Gender Identity Not on file Sexual Orientation Not on file Obstetrics History Last Filed Vital Signs Vital Sign Reading [...] Mass Index 51.22 10/09/2024 12:18 PM CDT Plan of Treatment Health Maintenance Due Date Last Done Comments Colon Cancer Screening-Colonoscopy 1975 Hepatitis C Screening 1975 Hepatitis B Screening 09/27/1993 Regular Well Visit/Exam 18-64 09/27/1993 Depression Screening 12/19/2017 12/19/2016, 10/28/2016, 09/23/2016, Additional history exists Covid-19 Vaccine ( season) 2023 05/23/2020, 05/02/2020 Breast Cancer Screening-Mammogram Discontinued DTaP/Tdap/Td Vaccine Discontinued Influenza Vaccine Discontinued Pneumococcal vaccine <65 Aged Out No longer eligible based on patient's age to complete this topic Medical Devices Implanted Type Area Bar Attendant Device Identifier Shelf Expiration Date Model / Serial / Lot [employer] Amplatz Rb 8.5fr 28cm 6 Sideport Introducer Catheter String [id number] - [id number] Implanted:Qty: 1 on 03/24/2024 at [facility] [employer] 11/04/2026 [id number] Procedures Procedure Name Priority Date/Time Associated Diagnosis Comments URINE CULTURE Routine 10/09/2024 5:34 PM CDT Flank pain POCT URINALYSIS DIPSTICK Routine 10/09/2024 12:28 PM CDT Flank pain from Last 3 Months Results * (ABNORMAL) Urine culture Urine, clean [...] bacterial amy. (.) Comment:Testing performed by : [facility], [address] [place]., [address] Organism ESCHERICHIA COLI [facility] Organism PLUS GROWTH OF CLINICALLY INSIGNIFICANT AMY. [facility] Urine, clean voided 10/09/2024 5:34 PM CDT 10/09/2024 8:01 PM CDT Narrative [facility] - 10/12/2024 6:00 PM CDT Testing performed by [facility] Microbiology Laboratory ([phone]) Organism Antibiotic Method Susceptibility Escherichia coli Ampicillin [...] ION Intermediate Escherichia coli Fosfomycin INTERPRETATION Susceptible us Selam James NP LAB MICROBIOLOGY - GENERAL ORD ERABLES Final Result [facility] [address] Department [place] [address] * (ABNORMAL) POCT urinalysis dipstick (10/09/2024 12:28 PM CDT) Color, Urine, POC Light Yellow Clarity, ur, POC Cloudy(A) Clear Glucose, ur, POC Negative Negative Bilirubin, ur, POC Negative Negative Ketones, ur, POC Negative Negative Specific [place], POC Comment:<=1.005 Blood, ur, POC Moderate(A) Negative pH, ur, POC 5.5 5.0 - 8.0 Protein, ur, POC Negative Negative Urobilinogen, urine, POC 0.2 0.2 - 1.0 mg/dL Nitrite, ur, POC Negative Negative Leukocytes, ur, POC Small(A) Negative Lot Number [id number] Urine 10/09/2024 12:2 8 PM CDT Selam James NP POINT OF CARE TEST ORDERABLES Final Result from Last 3 Months Additional Health Concerns Infection Onset Date Last Indicated MDR gram neg/ESBL 10/09/2024 10/09/2024 [place] [employer] [facility] Advance Directives For more information, please contact: [phone] * Full Code (Latest Code Status on File) Date Activated Date Inactivated Comments 03/23/2024 5:05 PM 03/25/2024 6:08 PM Care Teams Top Cager Relationship Specialty Start Date End Date Jarek Mayo MD [address] [place] [address] PCP - General Family Medicine 12/12/23 Niki Bach MD [address] [place] [address] Consulting Physician Urology 03/25/24
--- OUTSIDE RECORDS SUMMARY | 2024-10-12 20:30 | XMS_ITS | Clinical Summary ---
Author Organization [facility] Address [address] [place] [address] Care Team Providers Care Satellite Instruction Facilitator Name Role Phone Jarek Mayo MD Primary Care Provider [phone] Source Comments [facility],non-owned Affiliates and Associated Physician Practices is amultiple site organization consisting of ambulatory clinics and hospital sitesin [place], [place], [place] and [place]. This disclosure is being madepursuant to the Care Everywhere program and may not contain all information available regarding this patient. Last updated 17.[facility] Allergies Active Allergy Reactions Criticality Noted Date Comments Sulfa Drugs 09/08/2012 Active Problems Problem Noted Date Diagnosed Date Family history of congenital heart defect 2012 Encounter for supervision of other normal pregna ncy 09/11/2012 Overview (12/25/2014): History of 09/11/2012 Obesity complicating peripregnancy, antepartum 0 09/11/2012 cardiac anomaly complicating , an tepartum 09/11/2012 Resolved Problems Problem Noted Date Diagnosed Date Resolved Date Bicuspid aortic valve 09/11/20122012 Social History Tobacco Use Types Packs/Day Years Used Date Smoking Tobacco: Never Assessed Comments No Sex and Gender Information Value Date Recorded Sex Assigned at Not on file Legal Sex Female 4:15 PM CDT Gender Identity Not on file Sexual Orientation Not on file Plan of Treatment Health Maintenance Due Date Last Done Comments COLOGUARD (AGES 45-75) - COL ON CA SCREENING 1975 COLON MONITORING 1975 COLONOSCOPY - COLON CA SCREENING 1975 CT COLONOGRAPHY - COLON CA SCREENING 1975 Colorectal Cancer Screening 1975 FIT - COLON CA SCREENING 1975 FLEX SIG - COLON CA SCREENING 1975 LIPID TESTING 1975 MAMMOGRAM 1975 HIV SCREENING 09/27/1990 HEPATITIS C SCREENING 09/23/1993 DTAP/TDAP/TD VACCINES (1 - Tdap) 09/27/1994 HEPATITIS B VACCINE (1 of 3 - 19+ 3-dose series) 09/27/1994 PAP SMEAR 09/27/1996 COVID-19 VACCINE (2023-2 5 season) 2023 DEPRESSION SCREENING 02/18/2024 INFLUENZA VACCINE (#1) 2024 ZOSTER VACCINE (1 of 2) 09/27/2025 HIB VACCINE Aged Out No longer eligi ble based on patient's age to complete this topic HPV VACCINE Aged Out No longer eligi ble based on patient's age to complete this topic MENINGOCOCCAL (Group B) VACC INE SHARED DECISION-MAKING Aged Out No longer eligibl e based on patient's age to complete this topic MENINGOCOCCAL GROUPS A/C/Y/W VACCINE Aged Out No longer eligible b ased on patient's age to complete this topic Insurance [facility] [place] Care Teams Satellite Instruction Facilitator Relationship Specialty Start Date End Date Jarek Mayo MD [address] [place] [address] PCP - General 08/14/21
--- OUTSIDE RECORDS SUMMARY | 2024-10-12 20:30 | XMS_ITS | Clinical Summary ---
Author Organization [facility] Address [address] [place] [phone] Phone Care Team Providers Care Production Cell Leader Name Role Phone Unavailable Primary Care Provider Unavailabl e Social History Tobacco Use Types Packs/Day Years Used Date Smoking Tobacco: Never Assessed Comments Unknown Sex and Gender Information Value Date Recorded Sex Assigned at Not on file Legal Sex Female 9:37 AM [facility] Gender Identity Not on file Sexual Orientation Not on file Plan of Treatment Upcoming Encounters Date Type Department Care Team (Late st Contact Info) Description 12/14/2024 11:20 AM CDT Office Visit [facility] [address] [place] [address] Cliff Holland PA [address] [place] [address] Health Maintenance Due Date Last Done Comments Pneumococcal PPSV23 Highest Risk Adult (1 of 3 - PCV13 ) 09/27/1994 Influenza Vaccine (#1) 2024
--- OUTSIDE RECORDS SUMMARY | 2024-10-12 20:30 | XMS_ITS | Clinical Summary ---
Author Organization [facility] Address [address] [place] [address] Phone Care Team Providers Care Solar/Renewable Energy Sales Name Role Phone Jarek Mayo MD Primary Care Provider [phone] Allergies Active Allergy Reactions Criticality Noted Date Comments Sulfa (Sulfonamide Antibiotics) Nausea and Vomiting 03/31/2018 Medications ibuprofen (MOTRIN) 600 mg tabletIndication s:Preop examination Take out tablet every 6 hours x 3 days postop and then prn pain 50 Tablet 2 3 Active lisinopriL (PRINIVIL) 20 mg tablet Take 10 mg by mouth 2 times daily. 3 Active nitrofurantoin (MACROBID) 100 mg capsule 4 Active albuterol sulfate HFA 90 mcg/actuation aerosol inhaler 1 PUFF INHALED EVERY 4 HOURS NEEDED FOR SHORTNESS OF BREATH OR WHEEZING 3 Active Active Problems Problem Noted Date Diagnosed Date History of 09/11/2012 Encounters Date Type Department Care Team Description 09/01/2024 External Device Data ST[facility] ABSTRACTION Provider, Abstract 09/01/2024 External Device Data [facility] ABSTRACTION Provider, Abstract 09/01/2024 External Device Data [facility] ABSTRACTION Provider, Abstract 08/31/2024 External Device Data [facility] ABSTRACTION Provider, Abstract 08/17/2024 External Device Data [facility] ABSTRACTION Provider, Abstract 08/17/2024 External Device Data [facility] ABSTRACTION Provider, Abstract 08/10/2024 Telephone [facility] Minimally Invasive Gynecology [address] [place] [address] Maday Gay MD [place] [facility] from Last 3 Months Family History Medical History Relation Name Comments Breast Cancer Neg Hx Colon Cancer Neg Hx Ovarian Cancer Neg Hx Social History Tobacco Use Types Packs/Day Years Used Date Smoking Tobacco: Never Smokeless Tobacco: Never Tobacco Cessation:Counseling Given: Not Answered Alcohol Use Standard Drinks/Week Comments No 0 (1 standard drink = 0.6 oz pur e alcohol) Feeling Safe Answer Date Recorded Are you in a relationship wi th someone who hurts you emotionally and/or physically? 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 Gender Identity Not on file Sexual Orientation Not on file Last Filed Vital Signs Vital Sign Reading Time Taken Comments Blood Pressure 116/65 04/09/2023 4:00 PM ARTIFICIAL FLOWERS STARCHER Pulse 86 04/09/2023 4:00 PM ARTIFICIAL FLOWERS STARCHER Temperature 37.1 C (98.8 F) 04/09/2023 4:00 PM ARTIFICIAL FLOWERS STARCHER Respiratory Rate 16 04/09/2023 4:00 PM ARTIFICIAL FLOWERS STARCHER Oxygen Saturation 92% 04/09/2023 4:00 PM ARTIFICIAL FLOWERS STARCHER Inhaled Oxygen Concentration - - Weight 136.1 kg (300 lb) 04/09/2023 12:49 PM ARTIFICIAL FLOWERS STARCHER Height 170.2 cm (5' 7) 04/09/2023 12:49 PM ARTIFICIAL FLOWERS STARCHER Body Mass Index 46.99 04/09/2023 12:49 PM ARTIFICIAL FLOWERS STARCHER Plan of Treatment Health Maintenance Due Date Last Done Comments DTAP/TDAP/TD VACCINES (1 - Tdap) 09/27/1994 HEPATITIS B VACCINES (1 of 3 - 19+ 3-dose series) 09/17 BREAST CANCER SCREENING 2015 COLORECTAL SCREENING 09/27/2020 Colorectal Cancer Screening 09/27/2020 FIT-DNA Q 3 years 09/27/2020 FIT/FOBT Q 1 year 09/27/2020 Flex Sig/CT Colonography Q 5 years 09/27/2020 INFLUENZA VACCINE (#1) 2024 PAP SMEAR 11/14/2025 11/14/2022 CERVICAL CANCER SCREENING 11/15/2027 HPV/Cotest (21-29) 11/15/2027 11/14/2022 HPV/Cotest (30-65) 11/15/2027 11/14/2022 Medical Devices Implanted Type Area Outdoor Landscape Architect Device Identifier Shelf Expiration Date Model / Serial / Lot Hemostat Berenice Ah Powder 3gm [id number] - [id number] Implanted:Qty : 1 on 12/27/2022 by Maday Gay MD at [facility] Hemostatic N/A: Pelvis BARD DAVOL [id number] 06/15/2027 [id number] / / [id number] Procedures Procedure Name Priority Date/Time Associated Diagnosis Comments CERV/VAG CYTO AGE BASED SCREEN PAP Routine 11/14/2022 2:46 PM CDT Menorrhagia with irregular cycle from Last 3 Months or Most Recently Relevant to Health Maintenance Results * CERV/VAG CYTO AGE BASED SCREEN PAP (11/14/2022 2:46 PM CDT) COMMENT (PAP): [facility] Comment: This order for age-based cervical cancer and STI screening follows ACOG guidelines(PB 168, 140, DRM699). See individual assays for performing site location. CLINICAL INFORMATION [facility] Comment:None given LAST MENSTRUAL PERIOD [facility] Comment:11/14/2022 PREV PAP: [facility] Comment:NONE GIVEN PREV BX: [facility] Comment:NONE GIVEN SOURCE [facility] Comment:Endocervix ADEQUACY: [facility] Comment: Satisfactory for evaluation. Endocervical/transformation zone component present. PAP INTERP [facility] Comment: Cytology Results: Negative for intraepithelial lesion or malignancy. COMMENT (PAP TEST) [facility] [place] Comment: This Pap test has been evaluated with computer assisted technology. GROUP HOME WORKER: Rogelio Rios Comment: AMW CT(ASCP) CT screening location: [place] [address] [place] [address] EXPLANATORY NOTE [facility] [employer] Rios Comment: EXPLANATORY NOTE: The Pap is a screening test for cervical cancer. It is not a diagnostic test and is subject to false negative and false positive results. It is most reliable when a satisfactory sample, regularly obtained, is submitted with relevant clinical findings and history, and when the Pap result is evaluated along with historic and current clinical information. HPV E6/E7 Not Detected Not Detected [facility] [employer] [place] Comment: Methodology: Stockroom Coordinator-Mediated Amplification This assay detects E6/E7 viral messenger RNA (mRNA) from 14 high-risk HPV types (16,18,31,33,35,39,45,51,52,56,58,59,66,68). Cervical sources are required for HPV testing. If a vaginal source from a patient who has had a total hysterectomy with removal of cervix was submitted, please contact the testing laboratory for alternative testing options. For additional information, please refer to http://education.WooMe/faq/WTL873l9 (This link if provided for information/ educational purposes only.) Test Performed at: [facility] [id number] [phone] Jarek Miller PhD SL Genital SWAB OF ENDOCERVIX / Unknown 11/14/2022 2:46 PM CDT 11/15/2022 12:08 AM CDT Maday Gay MD PATHOLOGY/CYTOLOGY ORDERABLES F inal Result [facility] [phone] [facility] [address] [phone] from Last 3 Months or Most Recently Relevant to Health Maintenance Insurance [facility] BLUE ACCESS CHOICE Advance Directives For more information, please contact: [phone] * Full Code (Latest Code Status on File) Date Activated Date Inactivated Comments 12/27/2022 9:42 AM 12/27/2022 10:24 PM Care Teams Solar/Renewable Energy Sales Relationship Specialty Start Date End Date Jarek Mayo MD [address] [facility] [address] [place] [address] PCP - General Family Practice 03/31/18
--- OUTSIDE RECORDS SUMMARY | 2024-10-12 20:30 | XMS_ITS | Encounter Summary ---
Author Organization [facility] Address [address] [place] [address] Care Team Providers Care Transmission Rebuilder Name Role Phone Jarek Mayo MD Primary Care Provider Niki Bach MD Unavailable [phone] Encounter Details Date Type Department Care Team (Late st Contact Info) Description 10/10/2024 Results Follow-Up [facility] [place] [address] [place] [address] [place] [address] Selam James, QUICK TECHNICIAN [address] [facility] [place] [address] Urine culture Urine, clean voided Social History Tobacco Use Types Packs/Day Years Used Date Smoking Tobacco: Former Cigarettes 0.5 19 1 2 - 2010 Smokeless Tobacco: Never Alcohol Use Standard Drinks/Week Comments No 0 [...] on file Legal Sex Female 8:04 AM 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 I ordered Macrobid to the pharmacy listed in her chart. We will call when final results is received ----- Message ----- From: Interface, Lab Results In Sent: 10/10/2024 2:24 PM CDT To: [facility] Provider [employer] * Telephone Encounter - Fidelia Hugo MA - 10/11/2024 7:29 PM CDT Unable to leave a voicemail. * Telephone Encounter - Fidelia Hugo MA - 10/11/2024 7:29 PM CDT ----- Message from Dianelys Dela Cruz NP sent at 10/11/2024 5:03 PM CDT ----- Please call patient let her know that antibiotic that she is currently on is not susceptible to herinfection. I ordered Macrobid to the pharmacy listed in her chart. We will call when final results is received ----- Message ----- From: Interface, Lab Results In Sent: 10/10/2024 2:24 PM CDT To: [facility] [place] [place] [facility] Provider Pool documented in this encounter Plan of Treatment Not on file documented as of this encounter Visit Diagnoses Not on filedocumented in this encounter Additional Health Concerns Infection Onset Date Last Indicated Resolved Time MDR gram neg/ESBL 10/09/2024 10/09/2024 documented as of this encounter Care Teams Transmission Rebuilder Relationship Specialty Start Date End Date Jarek Mayo MD [address] [place] [address] PCP - General Family Medicine 12/12/23 Niki Bach MD [address] [place] [address] Consulting Physician Urology 03/25/24 documented as of this encounter
--- OUTSIDE RECORDS SUMMARY | 2024-10-12 20:30 | XMS_ITS | Encounter Summary ---
Author Organization [facility] Address [address] [place] [address] Care Team Providers Care Adjuster Arbitrator Name Role Phone Jarek Mayo MD Primary Care Provider [phone] Encounter Details Date Type Department Care Team (Late st Contact Info) Description 04/25/2021 Lab Requisition [facility] [address] [place] [address] Federico Kidd MD [address] [place] [address] Social History Tobacco Use Types Packs/Day Years Used Date Smoking Tobacco: Never Assessed Comments No Sex and Gender Information Value Date Recorded Sex Assigned at Not on file Legal Sex Female 4:15 PM CDT Gender Identity Not on file Sexual Orientation Not on file documented as of this encounter Plan of Treatment Not on file documented as of this encounter Procedures Procedure Name Priority Date/Time Associated Diagnosis Comments DERMATOPATHOLOGY Routine 04/24/2021 12:0 0 AM LINE MAINTENANCE SUPERVISOR documented in this encounter Results * DERMATOPATHOLOGY (04/24/2021 12:00 AM LINE MAINTENANCE SUPERVISOR) Case Report Dermatopathology Report Case: [id number] Authorizing Provider: Federico Kidd MD Collected: 04/24/2021 12:00 AM Ordering Location: [facility] Received: 04/25/2021 12:40 PM Pathologist: Vesta Pastor MD Specimen: Skin, left cheek ant to earlobe 2 4:26 PM [facility] [[email or web address]] DERMATOPATHOLOGY LABORATORY Final Diagnosis Specimen A. SKIN, left cheek ant to earlobe: SEBORRHEIC KERATOSIS, RETICULATED (ADENOID) TYPE (L82.1) 2 4:26 PM [facility] [[email or web address]] DERMATOPATHOLOGY LABORATORY at [address] LINE MAINTENANCE SUPERVISOR Clinical History R/O Dysplastic Nevus vs. AK 2 4:26 PM [facility] [[email or web address]] DERMATOPATHOLOGY LABORATORY Gross Description Specimen A: Received is one formalin filled container labeled with the patient's name and designated left cheek ant to earlobe. The specimen consists of a shave biopsy measuring [id number]. Jar 0. 2 4:26 PM [facility] [[email or web address]] DERMATOPATHOLOGY LABORATORY Microscopic Description Specimen A. SKIN, left cheek ant to earlobe: There is reticulated hyperplasia of the epidermis with overlying delicate hyperorthokeratosis . Hyperpigmentation is present in the basaloid cells. 2 4:26 PM [facility] [[email or web address]] DERMATOPATHOLOGY LABORATORY Disclaimer An external and internal positive and negative controls are appropriate for the histochemical, immunohistochemical and immunofluorescence stain(s) in this case (if any), except where stated explicitly. The performance characteristics of the stain(s) cited in this report were developed and its performance characteristic determined by the Dermatopathology Laboratory at [facility], directed by Dr. John Paul Pastor. These tests need not be, and therefore are not, approved by the [place] Food and Drug Administration. The tests are used for clinical purposes. Billing Codes Specimen Charges Stain Charges 44061 1 2 4:26 PM [facility] [[email or web address]] DERMATOPATHOLOGY LABORATORY Embedded Images 2 4:26 PM [facility] [[email or web address]] DERMATOPATHOLOGY LABORATORY Pathology/Cytolog y TISSUE SPECIMEN FROM SKIN / Unknown 04/24/2021 04/25/2021 12:40 PM [facility] [[email or web address]] us Federico Kidd MD LAB - PATHOLOGY/CYTOLOGY ORD ERABLES Final Result DERMATOPATHOLOGY LABORATORY [facility] - Department of Dermatology [address], [address] [phone] documented in this encounter Visit Diagnoses Not on filedocumented in this encounter Care Teams Adjuster Arbitrator Relationship Specialty Start Date End Date Jarek Mayo MD [address] [place] [address] PCP - General 08/14/21 documented as of this encounter
[2024-10-12] MEDS: FAMOTIDINE 20 MG/2 ML VIAL IV PUSH (20:38)
[2024-10-12] MEDS: SODIUM CHLORIDE 0.9% IV 1,000 ML 999 ML IV CONT (20:38)
[2024-10-12 20:51] LABS: Hematocrit 48.9 % (37.0-47.0); Hemoglobin 17.0 g/dL (12.0-15.0); Immature Granulocyte Percent A 0.5 % (0-0.5); Lymphocytes Absolute Auto 3.15 K/mm3 (0.9-3.2); Mean Corpuscular HGB Conc 34.8 g/dl (32-36); Mean Corpuscular Hemoglobin 31.6 pg (26-34); Mean Corpuscular Volume 90.9 fl (80-100); Nucleated Red Blood Cells Absolute Auto 0.000 K/mm3 (0.0-0.012); Nucleated Red Blood Cells Perc 0.0 % (0.0-0.2); Platelet Count Result 348 k/mm3 (150-375); Red Blood Count 5.38 M/mm3 (4.2-5.4); White Blood Count 10.7 K/mm3 (4.5-10.0)
[2024-10-12 20:59] LABS: Alanine Aminotransferase 48 U/L (6-35); Albumin Level 4.3 g/dL (3.5-5.1); Alkaline Phosphatase 62 U/L (38-126); Anion Gap 11 mmol/L (4-12); Aspartate Amino Transferase 44 U/L (14-36); Bilirubin,Total 0.6 mg/dL (0.2-1.3); Blood Urea Nitrogen 22 mg/dL (7-17); Calcium 9.6 mg/dL (8.4-10.2); Carbon Dioxide 21 mmol/L (22-30); Chloride 106 mmol/L (98-107); Estimated CRCL calculation 105 ml/min; Estimated Glomerular Filt Rate > 60; Glucose 237 mg/dL (65-110); Lipase 141 U/L (23-300); Magnesium 1.6 mg/dL (1.6-2.3); Potassium 4.2 mmol/L (3.4-5.0); Sodium 138 mmol/L (137-145); Total Protein 7.6 g/dL (6.3-8.2)
[2024-10-12 21:11] LABS: SPREG INTERNAL CONTROL Positive; Serum Qual hCG Negative
--- NOTE | 2024-10-12 21:29 | ED_ITS ---
HPI - Allergic Reaction General Chief complaint: Allergic Reaction Stated complaint: allergic reaction Time Seen by Provider: 10/12/24 20:27 History of Present Illness HPI narrative: Patient is a 49-year-old female who presents emergency department this evening complaining of an allergic reaction. Patient states that she was recently being treated for UTI with cephalexin but got called back and told that they were switching her antibiotic to nitrofurantoin. Patient took 1 dose of the nitrofurantoin it today and then developed nausea vomiting and appear right is. Patient is unsure if she has taken Macrobid in the past. Patient states that what prompted her to get checked for UTI was her left flank pain. She states that she does have a known left kidney stone and is unsure if she is trying to pass that stone. Currently denies any pain. States that her urinary symptoms have resolved. No additional symptoms or concerns at this time. Related Data Allergies Allergy/AdvReac Type Severity Reaction Status Date / Time nitrofurantoin (From Allergy Intermediate Rash Verified 10/12/24 20:12 Macrobid) Sulfa (Sulfonamide AdvReac Unknown Nausea and Verified 10/12/24 20:12 Antibiotics) Vomiting Review of Systems 2 Review of Systems: All systems are reviewed and are negative unless stated otherwise in the HPI. [facility] Past Medical History Medical History Morbid obesity Hypertension Kidney stones Surgical History Surgical History Hx of nephrolithotomy with removal of calculi History of hysterectomy History of lithotripsy History of section x3 Family History Family History Father Hypertension Mother Hypertension Social History Social History Social History: Surrogate decision maker: Kian Griffiths, spouse. Code status: Full code. Smoking packs per day: 0 Smoking cigarettes per day: 0.0 Years smoked: 15 Smoking pack-years: 0.00 Smoking status: Former smoker Smokeless tobacco user: chewing tobacco Smoking end date: 11/11/12 Alcohol intake: never Substance use: never Do You Feel Safe in your Home?: Yes Lack of Transportation: No Lack of Food: Never True Current Housing: I Have Housing Concerned About Future Housing: No Difficulty Paying Gas/Electric Bills: No Difficulty Paying for Meds: No Currently Unemployed: No Education: Don't Know Difficulty w/ Childcare or Family Care: No Living arrangements: with family Occupation/Education: unemployed 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 Gender identity (if verbalized by the patient): Female Sexual Orientation (if Verbalized by the Patient): Straight or Heterosexual Spiritual care concerns: No Exam 2 Narrative: General: Alert, awake, afebrile, in no acute distress, flushed. HEENT: PERRL, no rhinorrhea, no post nasal drip, oropharynx clear. Neck: Trachea midline, no JVD, no lymphadenopathy. Cardiovascular: Tachycardic with regular rhythm, no murmurs, rubs or gallops, no peripheral edema. Respiratory: Clear to auscultation bilaterally, no tachypnea, no wheezing, no rhonchi, no rubs, no respiratory distress. Abdomen: Soft, nontender, nondistended, no rebound, no guarding, no peritoneal signs. Musculoskeletal: No joint swelling or deformity, normal muscle tone. Skin: No rashes or petechia, no signs of infection, patient appears flushed, no evidence of urticaria. Psychiatric: Alert and oriented, normal behavior and judgment for situation. Neurological: Alert and oriented to person, place, and time. Follows all commands. No focal deficits, speech is clear and fluent. Course Vital Signs Vital signs: Vital Signs Temperature 97.6 F 10/12/24 20:05 Pulse Rate 130 H 10/12/24 20:05 Respiratory Rate 20 10/12/24 20:05 Blood Pressure 149/104 H 10/12/24 20:05 Pulse Oximetry 95 10/12/24 20:05 Oxygen Delivery Room Air 10/12/24 20:05 Temperature 97.6 F 10/12/24 20:05 Pulse Rate 130 H 10/12/24 20:05 Respiratory Rate 20 10/12/24 20:05 Blood Pressure 149/104 H 10/12/24 20:05 Pulse Oximetry 95 10/12/24 20:05 Oxygen Delivery Room Air 10/12/24 20:37 MDM - Allergic Reaction MDM Narrative Medical decision making narrative: The patient was evaluated by myself in the emergency department. History is obtained from patient who is an independent historian and physical exam was performed. External medical records were reviewed at this time. IV was established and pertinent tests were ordered. Patient was administered 1 L IV fluid bolus with normal saline, 125 mg of IV Solu-Medrol, 50 mg IV Benadryl and 20 mg of IV Pepcid. She also administered 4 mg IV Zofran and 15 mg of IV Toradol for nausea and pain. Laboratory results obtained revealing no acute process. Urinalysis did reveal 1+ leuk esterases and 2100 white blood cells. Patient was informed of these findings at bedside. Instructed that she can either wait for the culture results or call [facility] to find out her culture results no additional antibiotics she can take. Imaging studies obtained included CT abdomen pelvis without IV contrast which was independently interpreted by me revealing: IMPRESSION: 1. Left nephrolithiasis with 8 mm stone at the mid left ureter without hydronephrosis. 2. Prominent diffuse hepatic steatosis. 3. Small fat-containing umbilical and supraumbilical ventral hernias. Differential diagnosis considerations include renal colic/nephrolithiasis/hydronephrosis/pyelo/UTI/allergic reaction/anaphylaxis. Comorbidities impacting this visit include I have evaluated and discussed social determinants of health with the patient that could potentially impact subsequent diagnosis and treatment plans. On repeat assessment of the patient, reevaluation revealed that the patient is doing well and is in no acute distress. Patient symptoms have improved since she arrived to our emergency department. Repeat vital signs were all reviewed and noted to be stable. Differential diagnosis and treatment plan were discussed with the patient at bedside. Patient agrees with discussion and after shared medical decision making agrees with discharge. All questions were answered to the patient's satisfaction. Patient will follow up with Urology in 3-5 days. Scripts for [place], ibuprofen, Flomax and Zofran was sent to patient's pharmacy to take as prescribed to help passed her kidney stone. Patient was provided with strict return precautions and instructed to return to the emergency department if any new or worsening symptoms develop. The patient was discharged in stable condition. Lab Data 10/12/24 20:39 10/12/24 20:39 Labs: Lab Results 10/12/24 10/12/24 Range/Units 20:39 22:15 WBC 10.7 H (4.5-10.0) K/mm3 RBC 5.38 (4.2-5.4) M/mm3 Hgb 17.0 H D (12.0-15.0) g/dL Hct 48.9 H (37.0-47.0) % MCV 90.9 (80-100) fl MCH 31.6 (26-34) pg MCHC 34.8 (32-36) g/dl RDW 12.1 (11.5-14.5) % Plt Count 348 (150-375) k/mm3 MPV 9.8 (7.4-10.4) fl Immature Gran % (Auto) 0.5 (0-0.5) % Neut % (Auto) 63.3 (45.5-73.1) % Lymph % (Auto) 29.6 (18.3-44.2) % [place] % (Auto) 5.9 (2.6-8.5) % Eos % (Auto) 0.5 (0-4.4) % Baso % (Auto) 0.2 (0.2-1.2) % Lymph # (Auto) 3.15 (0.9-3.2) K/mm3 [place] # (Auto) 0.6 (0.1-0.6) K/mm3 Eos # (Auto) 0.1 (0-0.3) K/mm3 Baso # (Auto) 0.0 (0.0-0.1) K/mm3 Abs Immat Gran (auto) 0.05 H (0.00-0.031) K/mm3 Absolute Neuts (auto) 6.8 H (1.3-6.7) K/mm3 Absolute Nucleated RBC 0.000 (0.0-0.012) K/mm3 Nucleated RBC % 0.0 (0.0-0.2) % Sodium 138 (137-145) mmol/L Potassium 4.2 (3.4-5.0) mmol/L Chloride 106 (98-107) mmol/L Carbon Dioxide 21 L (22-30) mmol/L Anion Gap 11 (4-12) mmol/L BUN 22 H (7-17) mg/dL Creatinine 0.83 (0.7-1.0) mg/dL Estim Creat Clear Calc 105 ml/min Estimated GFR > 60 (59 - ) Glucose 237 H (65-110) mg/dL Calcium 9.6 (8.4-10.2) mg/dL Magnesium 1.6 (1.6-2.3) mg/dL Total Bilirubin 0.6 (0.2-1.3) mg/dL AST 44 H (14-36) U/L ALT 48 H (6-35) U/L Alkaline Phosphatase 62 (38-126) U/L Total Protein 7.6 (6.3-8.2) g/dL Albumin 4.3 (3.5-5.1) g/dL Lipase 141 (23-300) U/L Serum HCG, Qual Negative Urine Color Yellow (Yellow) Urine Appearance Cloudy H (Clear) Urine pH 5.0 (5.0-9.0) Ur Specific [place] 1.022 (1.001-1.035) Urine Protein 2+ H (Negative) mg/dL Urine Glucose (UA) Negative (Negative) mg/dL Urine Ketones Trace H (Negative) mg/dL Ur Blood (Man) 2+ H (Negative) Urine Nitrate Negative (Negative) Urine Bilirubin Negative (Negative) Urine Urobilinogen 1.0 (<2.0) mg/dL Add Ur Microanalysis Reviewed Leukocyte Esterase Rfl 1+ H (Negative) JENNIFER/UL Urine RBC 11-20 H (0-2) /hpf Urine WBC 51-100 H (0-3) /hpf Ur Squamous Epith Cells Occasional (Few) /hpf Urine Bacteria None seen /hpf Urine Casts >20 Hyaline Casts Present (None) /lpf Discharge Plan Discharge Clinical Impression: Kidney stone, Allergic reaction Patient Disposition: Home Condition: Improved Instructions: Antibiotic Form, Kidney Stones (ED), General Allergic Reaction (ED) Additional Instructions: Please follow-up with urologist within the next 3-5 days. Return to the ED if any new or worsening symptoms develop take the prescribed medications as instructed to help pass your kidney stone. Regarding your urinalysis, I do recommend that you call [facility] to find out your culture results and be placed on a different antibiotic given that you still have 1+ leuk esterases and 51-100 white blood cells in the urine. You could also wait until our culture results which would take up to 5 days. Patient Language: Chinese Prescriptions: New hydrocodone-acetaminophen 5-325 mg tablet 1 tablet PO Q8H PRN (Reason: pain) Qty: 10 0RF ondansetron 4 mg tablet,disintegrating 4 mg PO Q8H PRN (Reason: nausea and vomiting) Qty: 14 0RF tamsulosin [Flomax] 0.4 mg capsule 0.4 mg PO DAILY Qty: 14 0RF ibuprofen 400 mg tablet 400 mg PO TID PRN (Reason: pain) Qty: 14 0RF No Action (DME) blood-glucose meter Misc See Rx Instructions .Route Qty: 1 0RF Rx Instructions: As directed (DME) Blood Glucose Test Strip See Rx Instructions .Route Qty: 50 5RF Rx Instructions: As directed (DME) lancets [OneTouch Delica Plus Lancet] 30 gauge misc See Rx Instructions .ROUTE .COMPLEX Qty: 100 1RF Dose Instruction: DIRECTED Rx Instructions: check fasting blood glucose once daily lisinopril 10 mg tablet 10 mg PO DAILY Qty: 90 2RF Follow-up/Referrals: Jarek Mayo MD [Primary Care Provider, Family Practice] Niki Bach MD [Physician, Urology] - 3 Days Time of Disposition: 22:56
[2024-10-12 22:34] LABS: Add Urine Microscopic? YES; Appearance Urine Cloudy (Clear); Glucose Urine UA Negative (Negative); Leukocyte Esterase Ur 1+ LEU/UL (Negative); Need Manual Microscopic Reviewed; Nitrate Urine Negative (Negative); Non Pathogenic Casts >20; Specific Grav Ur 1.022 (1.001-1.035)
[2024-10-12] MEDS: ONDANSETRON INJ 4 MG/2 ML VIAL IV PUSH (23:06)
[2024-10-12] MEDS: KETOROLAC 15 MG/ML VIAL (*BKC) IV PUSH (23:11)
[2024-10-12 23:16] VITALS: BP 142/77; PULSE 87; RESP 18; TEMP 36.6; O2SAT 99
== END 2024-10-12 23:18 | disposition home or self-care (01) ==
PROVIDERS: Emergency Provider Emergency Medicine; PCP Family Medicine
DX: T78.40XA Allergy, unspecified, initial encounter (principal); N20.0 Calculus of kidney; I10 Essential (primary) hypertension; Z87.442 Personal history of urinary calculi; E66.01 Morbid (severe) obesity due to excess calories; Z68.43 Body mass index [BMI] 50.0-59.9, adult
CPT/HCPCS: 36415; 74150; 74176; 80053; 81001; 83690; 83735; 84703; 85025; 87086; 96361; 96374; 96375; 99284; J1200; J1885; J2405; J2919; J7030

== ENCOUNTER 2024-10-20 11:09 | Day surgery (SDC) | payer BC, SELFPAY ==
[2024-10-20] VITALS (8 sets, daily range): BP systolic 129–144; BP diastolic 79–93; PULSE 77–84; RESP 16–20; TEMP 36.6–36.9; O2SAT 95–98; BMI 51.5
--- NOTE | ~2024-10-20 | XR_ITS ---
EXAMINATION: XR retrograde pyelo w/stent LT DATE: 10/20/2024 13:46 INDICATION: Left ureteral stent placement TECHNIQUE: Fluoroscopic images from a left internal ureteral stent placement are submitted for review. 40 seconds of fluoroscopy time. FINDINGS: There is a left double-J internal ureteral stent projecting in expected position, with proximal [place] loop at the level of the renal pelvis and distal loop in the pelvis within the bladder lumen. IMPRESSION: 1. Left internal ureteral stent placement. Please refer to real-time procedural findings for details. Reviewed, dictated and finalized at location O. IMPRESSION: 1. Left internal ureteral stent placement. Please refer to real-time procedur al findings for details.
--- NOTE | 2024-10-20 11:50 | ECG_ITS ---
Test Date: 2024-10-20 12:26:29 Measurements Intervals [place] Rate: 78 P: 36 WI: 158 QRS: -16 QRSD: 110 T: 4 QT: 381 QTc: 437 Interpretive Statements SINUS RHYTHM INCOMPLETE RIGHT BUNDLE BRANCH BLOCK [90+ ms QRS DURATION, TERMINAL R IN V1/V2, 40+ ms S IN I/aVL/V4/V5/V6] NONSPECIFIC T-WAVE ABNORMALITY ABNORMAL ECG No previous ECG available for comparison Electronically Signed On 10-20-2024 15:37:30 CDT by Paras Castillo M.D.
[2024-10-20] MEDS: ACETAMINOPHEN 500 MG TABLET 1000 MG PO (11:54)
--- NOTE | 2024-10-20 12:00 | WPDHPUPDATE1 ---
History and Physical Update Update Date/Time: 10/20/24 12:00 History and Physical has been reviewed, including an updated exam of the patient. There are NO changes in the patient's condition. Risks, benefits, and alternatives have been discussed and questions answered. Patient agrees to proceed with procedure.
--- NOTE | 2024-10-20 12:51 | WPDANESEPPF ---
Anes - Initial Pre Proc Eval Procedure: Operation Date: 10/20/24 13:00 Proposed Procedures p Cystoscopy, with Left Ureteral Stent Placement - Niki Bach MD Date/Time: 10/20/24 12:51 Surgeon: Niki Bach MD Pre Op Diagnosis: bilateral renal stones Patient Data Age: 49 Gender: F Height: 1.68 m Weight: 145 kg Last Vital Signs Temp 36.9 C 10/20/24 11:20 Pulse 78 10/20/24 11:20 Resp 16 10/20/24 11:20 BP 134/89 10/20/24 11:20 Pulse Ox 97 10/20/24 11:20 O2 Del Method Room Air 10/20/24 11:20 Allergies Allergy/AdvReac Type Severity Reaction Status Date / Time nitrofurantoin (From Allergy Intermediate Rash Verified 10/20/24 12:14 Macrobid) Sulfa (Sulfonamide AdvReac Unknown Nausea and Verified 10/20/24 12:14 Antibiotics) Vomiting Home Medications ?Medication ?Instructions ?Recorded ?Confirmed ?Type lisinopril 10 mg tablet 10 mg PO DAILY #90 tabs 05/05/24 10/20/24 Rx doxycycline hyclate 100 mg tablet 100 mg PO BID 10/20/24 10/20/24 History Patient hx anesthesia problems: none Family hx anesthesia problems: none Results Review: All pre-operative results and documents have been reviewed as part of the pre-operative evaluation. [facility] Past Medical History Medical History Morbid obesity Hypertension Kidney stones Surgical History Surgical History Hx of nephrolithotomy with removal of calculi History of hysterectomy History of lithotripsy History of section x3 Family History Family History Father Hypertension Mother Hypertension Social History Social History Social History: Surrogate decision maker: Kian Griffiths, spouse. Code status: Full code. Smoking packs per day: 0 Smoking cigarettes per day: 0.0 Years smoked: 15 Smoking pack-years: 0.00 Smoking status: Former smoker Smokeless tobacco user: chewing tobacco Second hand tobacco smoke exposure: No Smoking end date: 11/11/12 Alcohol intake: never Substance use: never Do You Feel Safe in your Home?: Yes Lack of Transportation: No Lack of Food: Never True Current Housing: I Have Housing Concerned About Future Housing: No Difficulty Paying Gas/Electric Bills: No Difficulty Paying for Meds: No Currently Unemployed: No Education: Don't Know Difficulty w/ Childcare or Family Care: No Living arrangements: with family Occupation/Education: unemployed 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 Gender identity (if verbalized by the patient): Female Sexual Orientation (if Verbalized by the Patient): Straight or Heterosexual Spiritual care concerns: No Anes - Eval Final PreProcedure Day of Procedure 10/20/24 12:51 Patient weight: super morbidly obese Heart: regular rate and rhythm Lungs: clear to auscultation Airway: Mallampati scale class II Neurological: alert and oriented Last oral intake: >/= 8 hours ASA classification: III Emergent: no Anesthetic plan: proceed Anesthesia type and monitoring: general GIVS and standard monitoring Results Review: All pre-operative results and documents have been reviewed as part of the pre-operative evaluation. Informed Consent: The patient's anesthetic plan and its attendant risks and benefits were discussed with the patient/family/POA. Questions were solicited and answers provided to the satisfaction of the patient/family/POA.
[2024-10-20] MEDS: ceFAZolin 3 GM/D5W 100 ML 100 ML IVPB (13:12)
[2024-10-20] MEDS: LIDOCAINE 2% GEL UROJET 10 ML PKG MUCOUS MEM (13:39)
--- NOTE | 2024-10-20 13:45 | W.PM.PROC2 ---
Procedure Note - Detailed Date of Procedure 10/20/24 Pre-op Diagnosis Left ureteral and renal stones Post-op Diagnosis Same Procedure Performed Cystoscopy left retrograde pyelogram, left ureteral stent insertion Surgeon Niki Bach MD Anesthesia General Indications Patient in the ER last week with 8mm proximal ureteral stone. She has persistent left-sided pain. Seen in the office today and elected to proceed with cystoscopy and left renal stent insertion, deferred definitive stone management Description of Procedure Informed consent was obtained. Patient taken to the operating room. She given preoperative IV antibiotics. She was induced anesthesia. A 20 F cystoscope was inserted through the urethra into the bladder. The patient had right-sided duplicated collecting system noted. There was a solitary left-sided ureteral orifice. We cannulated left ureteral orifice and a retrograde pyelogram revealed a mildly dilated collecting system. Over the wire we placed a 6 F variable length stent with a curl in the upper pole and a curl in the bladder. The bladder was emptied lidocaine instilled. Patient was awakened taken recovery stable condition Patient will be discharged home today. We will plan for outpatient ureteroscopy in the coming 1 to 2 weeks Complications No immediate complications Condition Stable Disposition PACU
[2024-10-20] MEDS: LACTATED RINGERS 1,000 ML 30 ML IV CONT (13:49)
[2024-10-20] MEDS: oxyCODONE HCL (*CRX) 5 MG TAB IR PO (14:44)
== END 2024-10-20 15:30 | disposition home or self-care (01) ==
PROVIDERS: PCP Family Medicine; Visit Provider Urology
PROC: (CPT 52352; principal; 2024-10-20 13:00)
DX: N20.2 Calculus of kidney with calculus of ureter (principal); Z87.891 Personal history of nicotine dependence; E66.01 Morbid (severe) obesity due to excess calories; Z68.43 Body mass index [BMI] 50.0-59.9, adult
CPT/HCPCS: 52332; 74420; 93005; A9270; C1758; C1769; C2617; J0690; J1100; J2003; J2250; J2405; J2704; J3010; J7120; Q9966

== ENCOUNTER 2024-10-29 02:59 | Day surgery (SDC) | payer BC, SELFPAY ==
[2024-10-22 14:45] VITALS: BMI 51.0
--- NOTE | 2024-10-22 14:48 | PC.NURSE ---
Report to the Outpatient Waiting Room, entrance under the green pavilion located off [facility], at time _0600_ on date _[id number]_. Planned Procedure Time: _0730_.? Time changes happen often and if your time is changed the preop area will call you the afternoon before. - You and your visitor will be asked to self-screen and do not enter if you have any COVID symptoms. Please call surgeon if you need to reschedule. - A mask is optional within the hospital at this time. Patients may have clear liquids (water, carbonated beverages, clear teas, apple juice) until 3 hours prior to surgery with a maximum of 20 ounces. - No food from midnight until time of surgery and no smoking, or chewing tobacco (or any form of nicotine). No chewing gum, candy or mints. Take only the following medications with a SIP of water on the morning of surgery: ___None___ DO NOT STOP ANY OF YOUR OTHER PRESCRIPTION MEDICATIONS PRIOR TO SURGERY EXCEPT THE FOLLOWING Hold all vitamins and supplements for 3 days per anesthesiologist. Medications to discontinue per physician Date to take last dose Please no make-up, nail togolese, hairspray, perfume, deodorant, or body powder the day of surgery.? No jewelry (including any body piercings) or valuables the day of surgery, leave them at home.? Please take a shower or bath the night before, or the morning of, surgery with an antibacterial soap.? Wear comfortable, loose fitting clothing.? - Jewelry must be removed prior to entering the operating room.? Rings and piercings that are not removed may be cut off. - The hospital will not accept responsibility for valuables.? - Please leave all valuables, including medications, at home the day of surgery. If you are going home after surgery, a licensed driver medic must drive you home.? - NO public transportation without another adult if you receive anesthesia. - We recommend that an adult stay with you for 24 hours following discharge. - We also recommend that you do not drive, make important decision, drink alcoholic beverages, or take any drugs that were not prescribed by your health care provider for at least 24 hours after your discharge time. Follow any additional instructions given to you from your surgeon. Telephone instructions given to ___Oneyda__and asked if any additional questions and then verbalized understanding. Patient advised to call surgeon office or pre surgery nurse liaison [phone] if any additional questions.
[2024-10-29] VITALS (9 sets, daily range): BP systolic 136–156; BP diastolic 75–94; PULSE 82–99; RESP 14–24; TEMP 36.3–36.6; O2SAT 97–100
--- NOTE | ~2024-10-29 | XR_ITS ---
EXAMINATION: XR retrograde pyelo w/stent LT DATE: 10/29/2024 09:06 INDICATION: Left internal ureteral stent placement TECHNIQUE: Fluoroscopic images from a left stent placement are submitted for review. 118 seconds of fluoroscopy time. FINDINGS: There is a left double-J internal ureteral stent projecting in expected position, with proximal [place] loop at the level of the renal pelvis and distal loop in the pelvis within the bladder lumen. IMPRESSION: 1. Left internal ureteral stent placement. Please refer to real-time procedural findings for details. Reviewed, dictated and finalized at location O. IMPRESSION: 1. Left internal ureteral stent placement. Please refer to real-time procedur al findings for details.
--- OUTSIDE RECORDS SUMMARY | 2024-10-29 03:02 | XMS_ITS | Clinical Summary ---
Author Organization [facility] Address [address] [place] [phone] Phone Care Team Providers Care Vp Business Development Name Role Phone Unavailable Primary Care Provider Unavailabl e Social History Tobacco Use Types Packs/Day Years Used Date Smoking Tobacco: Never Assessed Comments Unknown Sex and Gender Information Value Date Recorded Sex Assigned at Not on file Legal Sex Female 9:37 AM [facility] Gender Identity Not on file Sexual Orientation Not on file Plan of Treatment Upcoming Encounters Date Type Department Care Team (Late st Contact Info) Description 12/14/2024 11:20 AM CDT Office Visit [facility] [address] [place] [address] [place] [address] [place] [address] Health Maintenance Due Date Last Done Comments Pneumococcal PPSV23 Highest Risk Adult (1 of 3 - PCV13 ) 09/27/1994 Influenza Vaccine (#1) 2024
--- OUTSIDE RECORDS SUMMARY | 2024-10-29 03:02 | XMS_ITS | Clinical Summary ---
Author Organization [facility] [employer] Address [address] [place] [address] Care Team Providers Care General Assembler Installer Name Role Phone Jarek Mayo MD Primary Care Provider [phone] Source Comments [facility],non-owned Affiliates and Associated Physician Practices is amultiple site organization consisting of ambulatory clinics and hospital sitesin [place], [place], [place] and [place]. This disclosure is being madepursuant to the Care Everywhere program and may not contain all information available regarding this patient. Last updated 17.[facility] Allergies Active Allergy Reactions Criticality Noted Date [...] 19+ 3-dose series) 09/27/1994 PAP SMEAR 09/27/1996 DEPRESSION SCREENING 02/18/2024 COVID-19 VACCINE (1 - 2023-2 5 season) 2024 INFLUENZA VACCINE (#1) 2024 ZOSTER VACCINE (1 [...] complete this topic Insurance [facility] Care Teams General Assembler Installer Relationship Specialty Start Date End Date Jarek Mayo MD [address] [place] [address] PCP - General 08/14/21
--- OUTSIDE RECORDS SUMMARY | 2024-10-29 03:02 | XMS_ITS | Clinical Summary ---
Author Organization [facility] Address [address] [place] [address] Phone Care Team Providers Care Administrative Intern Name Role Phone Jarek Mayo MD Primary Care Provider [phone] Allergies Active Allergy Reactions Criticality Noted Date [...] Data STL ABSTRACTION Provider, Abstract 08/10/2024 Telephone [facility] Minimally Invasive Gynecology [address] [place] [address] Maday Gay MD [place] OFFICE [...] on file Legal Sex Female 5:18 PM MEDICAL APPLIANCE MAKER Gender Identity Not on file Sexual Orientation Not on file Last Filed Vital Signs Vital Sign Reading Time Taken Comments Blood Pressure 116/65 04/09/2023 4:00 PM MEDICAL APPLIANCE MAKER Pulse 86 04/09/2023 4:00 PM MEDICAL APPLIANCE MAKER Temperature 37.1 C (98.8 F) 04/09/2023 4:00 PM MEDICAL APPLIANCE MAKER Respiratory Rate 16 04/09/2023 4:00 PM MEDICAL APPLIANCE MAKER Oxygen Saturation 92% 04/09/2023 4:00 PM MEDICAL APPLIANCE MAKER Inhaled Oxygen Concentration - - Weight 136.1 kg (300 lb) 04/09/2023 12:49 PM MEDICAL APPLIANCE MAKER Height 170.2 cm (5' 7) 04/09/2023 12:49 PM MEDICAL APPLIANCE MAKER Body Mass Index 46.99 04/09/2023 12:49 PM MEDICAL APPLIANCE MAKER Plan of Treatment Health Maintenance Due Date [...] 11/15/2027 11/14/2022 Medical Devices Implanted Type Area Systems Support Engineer Device Identifier Shelf Expiration Date Model / Serial / Lot Hemostat Berenice Ah Powder 3gm [id number] - [id number] Implanted:Qty : 1 on 12/27/2022 by Maday Gay MD at [facility] Hemostatic N/A: Pelvis BARD DAVOL [id number] 06/15/2027 [id number] / / [id number] Procedures Procedure Name Priority Date/Time Associated Diagnosis Comments CERV/VAG CYTO AGE BASED SCREEN PAP Routine 11/14/2022 2:46 PM CDT Menorrhagia with irregular cycle from Last 3 Months or Most Recently Relevant to Health Maintenance Results * CERV/VAG CYTO AGE BASED SCREEN PAP (11/14/2022 2:46 PM CDT) COMMENT (PAP): [facility] Comment: This order for age-based cervical cancer and STI screening follows ACOG guidelines(PB 168, 140, ZQM312). See individual assays for performing site location. CLINICAL INFORMATION [facility] Comment:None given LAST MENSTRUAL PERIOD [facility] Comment:11/14/2022 PREV PAP: [facility] Comment:NONE GIVEN PREV BX: [facility] Comment:NONE GIVEN SOURCE [facility] Comment:Endocervix ADEQUACY: [facility] Comment: Satisfactory for evaluation. Endocervical/transformation zone component present. PAP INTERP [facility] Comment: Cytology Results: Negative for intraepithelial lesion or malignancy. COMMENT (PAP TEST) [facility] [place] [facility] Comment: This Pap test has been evaluated with computer assisted technology. BEATER WORKER HELPER: Rogelio Rios Comment: AMW CT(ASCP) CT screening location: [place] [address] [place] [address] EXPLANATORY NOTE [employer] Group[facility]ha Rios Comment: EXPLANATORY NOTE: The Pap is [...] information. HPV E6/E7 Not Detected Not Detected [facility] [place] Comment: Methodology: Dianeticist-Mediated Amplification This assay detects E6/E7 viral messenger RNA (mRNA) from 14 high-risk HPV types (16,18,31,33,35,39,45,51,52,56,58,59,66,68). Cervical sources are required for HPV testing. If a vaginal source from a patient who has had a total hysterectomy with removal of cervix was submitted, please contact the testing laboratory for alternative testing options. For additional information, please refer to http://education.FireHost/faq/AIV371c0 (This link if provided for information/ educational purposes only.) Test Performed at: [facility] [address] [id number] Jarek Miller PhD SL Genital SWAB OF ENDOCERVIX / Unknown 11/14/2022 2:46 PM CDT 11/15/2022 12:08 AM CDT Maday Gay MD PATHOLOGY/CYTOLOGY ORDERABLES F inal Result [facility] [phone] [facility] [id number] [address] [id number] from Last 3 Months or Most Recently Relevant to Health Maintenance Insurance [facility] BLUE ACCESS CHOICE Advance Directives For more information, please contact: [phone] * Full Code (Latest Code Status on File) Date Activated Date Inactivated Comments 12/27/2022 9:42 AM 12/27/2022 10:24 PM Care Teams Administrative Intern Relationship Specialty Start Date End Date Jarek Mayo MD [address] [facility] [address] [place] [address] PCP - General Family Practice 03/31/18
--- OUTSIDE RECORDS SUMMARY | 2024-10-29 03:02 | XMS_ITS | Clinical Summary ---
Author Organization [facility] Address [facility] [place] [address] Care Team Providers Care Ornamental Iron Worker Apprentice Name Role Phone Jarek Mayo MD Primary Care Provider [phone] Allergies Active Allergy Reactions Criticality Noted Date Comments Sulfa Antibiotics GI Upset 04/16/2023 Medications fluticasone propionate (FLONASE) 50 MCG/ACT nasal spray 1 spray by Each Nostril route daily. 16 g 04/16/2023 Active Social History Tobacco Use Types Packs/Day Years Used Date Smoking Tobacco: Never Smokeless Tobacco: Never Tobacco Cessation:Counseling Given: Not Answered Alcohol Use Standard Drinks/Week Comments Never 0 (1 standard drink = 0.6 oz pur e alcohol) Comments No Sex and Gender Information Value Date Recorded Sex Assigned at Not on file Legal Sex Female 11:25 AM PHOTOGRAPH EDITOR Gender Identity Not on file Sexual Orientation Not on file Last Filed Vital Signs Vital Sign Reading Time Taken Comments Blood Pressure 136/88 04/16/2023 3:30 PM PHOTOGRAPH EDITOR Pulse 80 04/16/2023 3:30 PM PHOTOGRAPH EDITOR Temperature 36.2 C (97.1 F) 04/16/2023 11:27 AM PHOTOGRAPH EDITOR Respiratory Rate 18 04/16/2023 3:30 PM PHOTOGRAPH EDITOR Oxygen Saturation 96% 04/16/2023 3:30 PM PHOTOGRAPH EDITOR Inhaled Oxygen Concentration - - Weight 131.1 kg (289 lb 0.4 oz) 024 11:27 AM PHOTOGRAPH EDITOR Height 170.2 cm (5' 7) 04/16/2023 11:2 7 AM PHOTOGRAPH EDITOR Body Mass Index 45.27 04/16/2023 11:27 AM PHOTOGRAPH EDITOR Plan of Treatment Health Maintenance Due Date Last Done Comments Colorectal Cancer Screening Colonoscopy (10 Years) 1975 Annual Physical 09/27/1978 Hepatitis C 09/27/1993 DTaP, Tdap and Td Vaccines ( 1 - Tdap) 09/27/1994 Hepatitis B Vaccines (1 of 3 - 19+ 3-dose series) 09/27/1994 Mammogram Screening 2015 COVID-19 Vaccine (3 - 2024-2 6 season) 2024 05/23/2020, 05/02/2020 Meningococcal B Vaccine Aged Out No l onger eligible based on patient's age to complete this topic Meningococcal Vaccine Aged Out No magdalena celi eligible based on patient's age to complete this topic Pneumococcal Vaccine: Pediatrics (0 to 5 Years) and At-Risk Patients (6 to 49 Years) Aged Out No longer eligible b ased on patient's age to complete this topic RSV Immunizations Under 20 Months Aged Out No longer eligible b ased on patient's age to complete this topic Insurance [facility] Care Teams Ornamental Iron Worker Apprentice Relationship Specialty Start Date End Date Jarek Mayo MD [address] [place] [address] PCP - General FAMILY PRACTICE 04/16/23
--- OUTSIDE RECORDS SUMMARY | 2024-10-29 03:02 | XMS_ITS | Encounter Summary ---
Author Organization [facility] Address [address] [place] [address] Care Team Providers Care Agricultural Equipment Mechanic Name Role Phone Jarek Mayo MD Primary Care Provider [phone] Encounter Details Date Type Department Care Team (Late st Contact Info) Description 04/25/2021 Lab Requisition [facility] DermPath Lab [address] [place] [address] Federico Kidd MD [address] [place] [address] Social History Tobacco Use Types [...] Comments DERMATOPATHOLOGY Routine 04/24/2021 12:0 0 AM GOLD PROSPECTOR documented in this encounter Results * DERMATOPATHOLOGY (04/24/2021 12:00 AM GOLD PROSPECTOR) Case Report Dermatopathology Report Case: [id number] Authorizing Provider: Federico Kidd MD Collected: 04/24/2021 12:00 AM Ordering Location: [facility] DermPath Lab Received: 04/25/2021 12:40 PM Pathologist: Vesta Pastor MD Specimen: Skin, left cheek ant to earlobe 2 4:26 PM [facility] DERMATOPATHOLOGY LABORATORY Final Diagnosis Specimen A. 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 AK 2 4:26 PM [facility] DERMATOPATHOLOGY LABORATORY Gross Description Specimen A: Received is one formalin filled container labeled with the patient's name and designated left cheek ant to earlobe. The specimen consists of a shave biopsy measuring [id number]. Jar 0. 2 4:26 PM [facility] DERMATOPATHOLOGY LABORATORY Microscopic Description Specimen A. SKIN, left cheek ant to earlobe: There is reticulated hyperplasia of the epidermis with overlying delicate hyperorthokeratosis . Hyperpigmentation is present in the basaloid cells. 2 4:26 PM [facility] DERMATOPATHOLOGY LABORATORY Disclaimer An external and internal positive and negative controls are appropriate for the histochemical, immunohistochemical and immunofluorescence stain(s) in this case (if any), except where stated explicitly. The performance characteristics of the stain(s) cited in this report were developed and its performance characteristic determined by the Dermatopathology Laboratory at [facility], directed by Dr. John Paul Pastor. These tests need not be, and therefore are not, approved by the [place] Food and Drug Administration. The tests are used for clinical purposes. Billing Codes Specimen Charges Stain Charges 99854 1 2 4:26 PM [facility] DERMATOPATHOLOGY LABORATORY Embedded Images 2 4:26 PM [facility] DERMATOPATHOLOGY LABORATORY Pathology/Cytolog y TISSUE SPECIMEN FROM SKIN / Unknown 04/24/2021 04/25/2021 12:40 PM [facility] us Federico Kidd MD LAB - PATHOLOGY/CYTOLOGY ORD ERABLES Final Result DERMATOPATHOLOGY LABORATORY [facility] - Department of Dermatology [address], [address] [phone] documented in this encounter Visit Diagnoses Not on filedocumented in this encounter Care Teams Agricultural Equipment Mechanic Relationship Specialty Start Date End Date Jarek Mayo MD [address] [place] [address] PCP - General 08/14/21 documented as of this encounter
--- OUTSIDE RECORDS SUMMARY | 2024-10-29 03:02 | XMS_ITS | Clinical Summary ---
Author Organization [address] Address [address] [place] [address] Care Team Providers Care Lamination Technician Name Role Phone Jarek Mayo MD Primary Care Provider Niki Bach MD Unavailable [phone] Allergies Active Allergy Reactions Criticality Noted Date Comments Nitrofurantoin Other (See comments),Nausea & Vomiting Medium 10/13/2024 Chest pain Sulfa Nausea & Vomiting Low 10/09/2024 Sulfanilamide Nausea only,Vomiting Reaction: Nausea, Vomiting, Medications multivitamin-Ca- iron-minerals tablet Take by mouth. Active lisinopriL (PRINIVIL,ZESTRI L) 10 mg tablet Take 1 tablet (10 mg total) by mouth daily 3 Active cephalexin (KEFLEX) 500 mg capsule Take 1 capsule (500 mg total) by mouth 3 (three) times a day for 7 days 21 capsule 5 10/12/19 25 Discontinue d(Alternate therapy) nitrofurantoin monohydrate (Macrobid) 100 mg capsule Take 1 capsule (100 mg total) by mouth 2 (two) times a day for 5 days 10 capsule 5 10/17/19 25 Active Problems Problem Noted Date Diagnosed Date Calculus of ureter 02/09/2024 Encounters Date Type Department Care Team Description 10/10/2024 Results Follow-Up [facility] [place] [facility] [address] [place] [address] Selam James, MARNI Urine culture Urine, clean voided 10/09/2024 5:34 PM CDT - 10/09/2024 11:59 PM CDT Hospital Encounter [place] [id number] Flank pain Discharge Disposition: Discharge to home or self care 10/09/2024 12:30 PM CDT Office Visit [facility] [address] [place] [address] Selam James NP Flank pain (Primary Dx); [...] Relation Name Comments Coronary artery disease Father Carolee nary artery disease; Diabetes Father Hypertension Father [...] on file 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 Gender Identity Not on file Sexual Orientation [...] Additional history exists Covid-19 Vaccine ( season) 2024 05/23/2020, 05/02/2020 Breast Cancer Screening-Mammogram Discontinued DTaP/Tdap/Td Vaccine Discontinued Influenza Vaccine Discontinued Pneumococcal vaccine <65 Aged Out No longer eligible based on patient's age to complete this topic Medical Devices Implanted Type Area Merchandise Flow Manager Device Identifier Shelf Expiration Date Model / Serial / Lot Proximex Amplatz Rb 8.5fr 28cm 6 Sideport Introducer Catheter String [id number] - [id number] Implanted:Qty: 1 on 03/24/2024 at [facility] [employer] 11/04/2026 [id number] Procedures Procedure Name Priority Date/Time Associated Diagnosis [...] bacterial amy. (.) Comment:Testing performed by : [facility], [address] [facility] [place]., [address] Organism ESCHERICHIA COLI TISH Organism PLUS GROWTH OF CLINICALLY INSIGNIFICANT AMY. TISH Urine, clean voided 10/09/2024 5:34 PM CDT 10/09/2024 8:01 PM CDT Narrative TISH - 10/12/2024 6:00 PM CDT Testing performed by 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 CHIEF LAB MICROBIOLOGY - GENERAL ORD ERABLES Final Result [facility] [address] [address] Department [place] [address] * (ABNORMAL) POCT urinalysis dipstick (10/09/2024 12:28 PM CDT) Color, Urine, POC Light Yellow Clarity, ur, POC Cloudy(A) Clear Glucose, ur, POC Negative Negative Bilirubin, ur, POC Negative Negative Ketones, ur, POC Negative Negative Specific Freeman, POC Comment:<=1.005 Blood, ur, POC Moderate(A) Negative pH, ur, POC 5.5 5.0 - 8.0 Protein, ur, POC Negative Negative Urobilinogen, urine, POC 0.2 0.2 - 1.0 mg/dL Nitrite, ur, POC Negative Negative Leukocytes, ur, POC Small(A) Negative Lot Number [id number] Urine 10/09/2024 12:2 8 PM CDT Selam James NP POINT OF CARE TEST ORDERABLES Final Result from Last 3 Months Additional Health Concerns Infection Onset Date Last Indicated MDR gram neg/ESBL 10/09/2024 10/09/2024 Insurance [employer] [facility] BLUE ACCESS CHOICE [place] [employer] [place] Advance Directives For more information, please contact: [phone] * Full Code (Latest Code Status on File) Date Activated Date Inactivated Comments 03/23/2024 5:05 PM 03/25/2024 6:08 PM Care Teams Lamination Technician Relationship Specialty Start Date End Date Jarek Mayo MD [address] [facility] [address] [place] [address] PCP - General Family Medicine 12/12/23 Niki Bach MD [address] [facility] [address] [place] [address] Consulting Physician Urology 03/25/24
[2024-10-29] MEDS: ACETAMINOPHEN 500 MG TABLET 1000 MG PO (06:15)
[2024-10-29] MEDS: LACTATED RINGERS 1,000 ML 30 ML IV CONT (06:25)
--- NOTE | 2024-10-29 07:23 | WPDHPUPDATE1 ---
History and Physical Update Update Date/Time: 10/29/24 07:23 History and Physical has been reviewed, including an updated exam of the patient. There are NO changes in the patient's condition. Plan left ureteroscopy, laser lithotripsy, stent exchange, retrograde pyelogram. Risks, benefits, and alternatives have been discussed and questions answered. Patient agrees to proceed with procedure.
--- NOTE | 2024-10-29 07:25 | P.PNAN_ITS ---
Anes - Initial Pre Proc Eval Procedure: Operation Date: 10/29/24 07:30 Proposed Procedures p Cystoscopy, Left Ureteroscopy, Possible Left Retrograde Pyelogram, Possible Left Stone Extraction, Possible Left Stent Removal/Replacement, Possible Holmium Laser - Niki Bach MD Date/Time: 10/29/24 07:25 Surgeon: Niki Bach MD Pre Op Diagnosis: left ureteral stone Patient Data Age: 49 Gender: F Height: 1.69 m Weight: 144.6 kg Last Vital Signs Temp 97.8 F 10/29/24 06:36 Pulse 90 10/29/24 06:36 Resp 16 10/29/24 06:36 BP 155/94 H 10/29/24 06:36 Pulse Ox 99 10/29/24 06:36 O2 Del Method Room Air 10/29/24 06:36 Allergies Allergy/AdvReac Type Severity Reaction Status Date / Time nitrofurantoin (From Allergy Intermediate Rash Verified 10/29/24 06:31 Macrobid) Sulfa (Sulfonamide AdvReac Unknown Nausea and Verified 10/29/24 06:31 Antibiotics) Vomiting Home Medications ?Medication ?Instructions ?Recorded ?Confirmed ?Type lisinopril 10 mg tablet 10 mg PO DAILY #90 tabs 04/1710/29/24 Rx oxybutynin chloride 5 mg tablet 5 mg PO Q8H 10/22/24 0 10/29/24 History Patient hx anesthesia problems: none Family hx anesthesia problems: none Results Review: All pre-operative results and documents have been reviewed as part of the pre- operative evaluation. [facility] Past Medical History Medical History Morbid obesity Hypertension Kidney stones Surgical History Surgical History Hx of nephrolithotomy with removal of calculi History of hysterectomy History of lithotripsy History of section x3 Family History Family History Father Hypertension Mother Hypertension Social History Social History Social History: Surrogate decision maker: Kian Griffiths, spouse. Code status: Full code. Smoking packs per day: 0 Smoking cigarettes per day: 0.0 Years smoked: 15 Smoking pack-years: 0.00 Smoking status: Former smoker Smokeless tobacco user: chewing tobacco Second hand tobacco smoke exposure: No Smoking end date: 11/11/12 Alcohol intake: never Substance use: never Do You Feel Safe in your Home?: Yes Lack of Transportation: No Lack of Food: Never True Current Housing: I Have Housing Concerned About Future Housing: No Difficulty Paying Gas/Electric Bills: No Difficulty Paying for Meds: No Currently Unemployed: No Education: Don't Know Difficulty w/ Childcare or Family Care: No Living arrangements: with family Occupation/Education: unemployed 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 Gender identity (if verbalized by the patient): Female Sexual Orientation (if Verbalized by the Patient): Straight or Heterosexual Spiritual care concerns: No Anes - Eval Final PreProcedure Day of Procedure 10/29/24 07:25 Patient weight: super morbidly obese Heart: regular rate and rhythm Lungs: clear to auscultation Airway: Mallampati scale class III Neurological: alert and oriented Last oral intake: >/= 8 hours ASA classification: III Emergent: no Anesthetic plan: proceed Anesthesia type and monitoring: general LMA and standard monitoring Results Review: All pre-operative results and documents have been reviewed as part of the pre- operative evaluation. Informed Consent: The patient's anesthetic plan and its attendant risks and benefits were discu ssed with the patient/family/POA. Questions were solicited and answers provided to the satisfaction of the patient/family/POA.
[2024-10-29] MEDS: ceFAZolin 3 GM/D5W 100 ML 100 ML IVPB (07:30)
[2024-10-29] MEDS: LIDOCAINE 2% GEL UROJET 10 ML PKG MUCOUS MEM (07:54)
--- NOTE | 2024-10-29 08:55 | S_PTH ---
PATIENT: Oneyda Griffiths LOC: [facility] U#:[id number] AGE/SX: 49/F ROOM: RE10/29/[address]: Niki Bach MD : 1975 BED: DIS: 10/29/2024 SPEC #: [id number] RECD: 10/29/24 11:12 STATUS: SADI REPreston #: [id number] DONNA: 10/29/24 08:[address]: Niki Bach DEPT: [facility] Surgical RECD BY: Allison Ritter ENTERED: 10/29/24 11:13 SP TYPE: Surgical OTHR DR: Jarek Mayo MD Tissues: A - Stone Procedures: Gross Exam Level 1 Crystalline Analysis
--- NOTE | 2024-10-29 09:04 | P.OP_ITS ---
Procedure Note - Detailed Date of Procedure 10/29/24 Pre-op Diagnosis left ureteral and renal stones Post-op Diagnosis Same Procedure Performed 1. cystoscopy 2. Left ureteroscopic stone manipulation with laser lithotripsy 3. Steerable vacuum stone extraction 4. Left ureteral stent exchange Surgeon Niki Bach MD Anesthesia General Description of Procedure ? Narrative of events: the patient was brought to the operating room placed under general anesthesia. He was prepped and draped in the usual sterile fashion. An appropriate preprocedural pause was performed with confirmation of antibiotic administration. We began by inserting the cystoscope. This demonstrated a normal urethra. The previous stent was grasped and pulled to urethral meatus. A wire was placed through the stent and then 2 wire access obtained with an 810 dilator. We then advanced a semi rigid ureteroscope into the ureter and inspected the distal left ureter where the stone was encountered in the proximal/mid ureter. A 12/14 Macedonian access sheath was then placed up to the level of the stone. A single use disposable CVAC aspiration ureteroscope was used. We fragmented the stone the laser fiber and vacuuming significant pieces. We did push some larger fragments to the kidney. We then advanced into kidney and inspected the full collecting system and identify all stones requiring lithotripsy and/or steerable vacuum extraction. We used the laser fiber to fragment all stones. The laser fiber was used as a fiducial for visual assessment of fragment size to confirm completion of lithotripsy of the stone. From time to time, the laser fiber and laser bridge were withdrawn and intermittent vacuum aspiration was used to extract stone fragments and dust through the CVAC aspiration system and then the fiber/bridge was reinserted. The full collecting system was surveyed with the single use CVAC ureteroscope. Exhaustive steerable vacuum aspiration was performed in the upper pole using continuous fluid irrigation, increased fluid flow to mobilize stones, and intermittent vacuum aspiration. Fluid outflow was monitored to confirm effluent contained stone fragments. Upon completion of vacuum aspiration of the primary stone fragment locations, the full collecting system was navigated and irrigation/vacuum continued to collect fragments moving through the collecting system. A few smaller fragments were identified and grasped with a Zero tip basket. We again performed a retrograde pyelogram and inspected each calyx. This was performed until no significant fragments were visible. The full collecting system was surveyed with the CVAC ureteroscope and there were no clinically significant residual fragments seen. There was no injury or significant bleeding. The ureteral access sheath was removed leaving a guidewire in place. As the sheath was withdrawn, the ureter was inspected for trauma. There was no clinically significant bleeding or injury. The semi rigid ureteral scope was reintroduced inspected the length of the ureter and again there was no injury and no residual stones. A retrograde pyelogram performed showing mild hydronephrosis and a 6 Macedonian variable length double-J ureteral stent was then placed. The patient's bladder was drained. He was transferred to recovery room in satisfactory condition after being awoken from anesthesia Pathology Yes Complications No immediate complications Condition Stable Disposition PACU
[2024-10-29] MEDS: fentaNYL CITRATE INJ (*CRX) 100 MCG/2 ML VIAL 25 MCG IV PUSH ×4 (09:25→09:40)
[2024-10-29] MEDS: oxyCODONE HCL (*CRX) 5 MG TAB IR PO (11:05)
[2024-10-29] MEDS: KETOROLAC 10 MG TABLET PO (11:22)
== END 2024-10-29 11:29 | disposition home or self-care (01) ==
PROVIDERS: PCP Family Medicine; Visit Provider Urology
PROC: (CPT 52352; principal; 2024-10-29 07:30)
DX: N20.2 Calculus of kidney with calculus of ureter (principal); Z87.891 Personal history of nicotine dependence; E66.01 Morbid (severe) obesity due to excess calories; Z68.43 Body mass index [BMI] 50.0-59.9, adult
CPT/HCPCS: C9761; 74420; 82365; 88300; A9270; C1747; C1769; C1894; C2617; J0690; J1100; J2003; J2250; J2405; J2704; J3010; J7120; Q9966

== ENCOUNTER 2024-10-30 19:35 | Inpatient (IN) | payer BC, SELFPAY ==
--- NOTE | ~2024-10-30 | CT_ITS ---
EXAMINATION: CT abdomen pelvis w con DATE: 10/31/2024 01:09 INDICATION: Fever. Kidney stone. Sepsis. TECHNIQUE: Computed tomography (CT) of the abdomen and pelvis was performed with 100 mL Omnipaque 350 intravenous contrast. Automated exposure control and iterative reconstruction technique were employed. The dose-length product was 1502.59 mGy-cm. COMPARISON: CT abdomen and pelvis 10/12/2024 FINDINGS: The visualized portions of the lung bases demonstrate minimal atelectasis. No pleural effusion. The heart size is normal. No pericardial effusion. There is diffuse hepatic steatosis. The gallbladder, spleen, pancreas, and adrenal glands are normal. There are cysts in right kidney measuring up to 10 mm. There is a left internal ureteral stent in expected position. Left kidney is normal. There is diverticulosis of the colon without evidence of diverticulitis. There are no dilated loops of bowel. The appendix is normal. There are no pathologically enlarged lymph nodes. There is no free intrap eritoneal fluid. There is a supraumbilical ventral hernia containing fat. There is an umbilical hernia containing fat. There is mild thoracic and lumbar spondylosis. IMPRESSION: 1. Diffuse hepatic steatosis. 2. Supraumbilical ventral hernia containing fat. Umbilical hernia containing fat. Reviewed, dictated and finalized at location K. IMPRESSION: 1. Diffuse hepatic steatosis. 2. Supraumbilical ventral hernia containing fat. Umbilical hernia containing fa t.
--- NOTE | ~2024-10-30 | XR_ITS ---
EXAMINATION: XR chest 2V, 10/30/2024 21:08 CDT HISTORY: fever post op COMPARISON: No comparisons available. Technique: 2 views obtained. Findings: The lungs are clear, no effusion. No pneumothorax. Heart is normal size. Mediastinal and hilar contours are within normal limits. Bony thorax no acute abnormality. Impression: No acute cardiopulmonary abnormality. Reviewed, dictated and finalized at location A. Impression: No acute cardiopulmonary abnormality.
[2024-10-30 19:52] VITALS: BP 179/92; PULSE 100; RESP 20; TEMP 38.2; O2SAT 99
--- NOTE | 2024-10-30 20:47 | ECG_ITS ---
Test Date: 2024-10-30 22:40:49 Measurements Intervals [place] Rate: 105 P: 46 VA: 144 QRS: -26 QRSD: 110 T: 1 QT: 323 QTc: 428 Interpretive Statements SINUS TACHYCARDIA BORDERLINE LEFT AXIS DEVIATION [QRS AXIS < -20] INCOMPLETE RIGHT BUNDLE BRANCH BLOCK [90+ ms QRS DURATION, TERMINAL R IN V1/V2, 40+ ms S IN I/aVL/V4/V5/V6] NONSPECIFIC T-WAVE ABNORMALITY ABNORMAL ECG Electronically Signed On 10-31-2024 09:43:53 CDT by Paras Castillo M.D.
[2024-10-30 22:20] LABS: Hematocrit 41.3 % (37.0-47.0); Hemoglobin 14.3 g/dL (12.0-15.0); Immature Granulocyte Percent A 0.5 % (0-0.5); Lymphocytes Absolute Auto 1.19 K/mm3 (0.9-3.2); Mean Corpuscular HGB Conc 34.6 g/dl (32-36); Mean Corpuscular Hemoglobin 32.2 pg (26-34); Mean Corpuscular Volume 93.0 fl (80-100); Nucleated Red Blood Cells Absolute Auto 0.000 K/mm3 (0.0-0.012); Nucleated Red Blood Cells Perc 0.0 % (0.0-0.2); Platelet Count Result 209 k/mm3 (150-375); Red Blood Count 4.44 M/mm3 (4.2-5.4); White Blood Count 10.3 K/mm3 (4.5-10.0)
[2024-10-30 22:34] LABS: Add Urine Microscopic? YES; Appearance Urine Turbid (Clear); Glucose Urine UA Negative (Negative); Leukocyte Esterase Ur 3+ LEU/UL (Negative); Need Manual Microscopic Reviewed; Nitrate Urine Positive (Negative); Non Pathogenic Casts 0-2; Specific Grav Ur 1.019 (1.001-1.035)
[2024-10-30 22:35] LABS: Alanine Aminotransferase 30 U/L (6-35); Albumin Level 4.0 g/dL (3.5-5.1); Alkaline Phosphatase 67 U/L (38-126); Anion Gap 7 mmol/L (4-12); Aspartate Amino Transferase 30 U/L (14-36); Bilirubin,Total 0.9 mg/dL (0.2-1.3); Blood Urea Nitrogen 17 mg/dL (7-17); Calcium 8.4 mg/dL (8.4-10.2); Carbon Dioxide 24 mmol/L (22-30); Chloride 103 mmol/L (98-107); Estimated CRCL calculation 110 ml/min; Estimated Glomerular Filt Rate > 60; Glucose 122 mg/dL (65-110); Lipase 29 U/L (23-300); Potassium 4.0 mmol/L (3.4-5.0); Sodium 134 mmol/L (137-145); Total Protein 7.4 g/dL (6.3-8.2)
[2024-10-30 22:36] LABS: INR 1.0; Prothrombin Time 13.6 Seconds (11.1-14.7)
[2024-10-30 22:37] LABS: Partial Thromboplastin Time 30.5 Seconds (22.3-36.8)
[2024-10-30 22:50] LABS: CRP 12.7 mg/dL (<1.0)
[2024-10-30 23:30] VITALS: BP 143/89; PULSE 121; RESP 27; O2SAT 94
[2024-10-30 23:31] VITALS: PULSE 118; RESP 25; O2SAT 96
[2024-10-30 23:45] VITALS: BP 123/78; PULSE 116; RESP 28; O2SAT 96
[2024-10-30 23:46] VITALS: PULSE 118; RESP 27; O2SAT 96
[2024-10-31] VITALS (20 sets, daily range): BP systolic 102–191; BP diastolic 53–162; PULSE 61–128; RESP 11–37; TEMP 36.1–37.5; O2SAT 91–100; BMI 52.4
[2024-10-31] MEDS: SODIUM CHLORIDE 0.9% IV 1,000 ML 999 ML IV CONT ×3 (01:12→02:20)
[2024-10-31] MEDS: cefTRIAXone 1 GM in SODIUM CHLORIDE 0.9% IV 50 ML 100 ML IVPB (01:13)
[2024-10-31] MEDS: MORPHINE SULFATE (*CRX) 4 MG/ML INJ IV PUSH (01:13)
[2024-10-31] MEDS: ONDANSETRON INJ 4 MG/2 ML VIAL IV PUSH (01:13)
[2024-10-31] MEDS: ACETAMINOPHEN 500 MG TABLET 1000 MG PO (01:13)
--- NOTE | 2024-10-31 01:34 | ED.FEVER ---
HPI - Fever General Chief Complaint: Fever <SANDI Mix Last Filed: 10/31/24 02:22> Stated Complaint: fever/post op complication <SANDI Mix Last Filed: 10/31/24 02:22> Time Seen by Provider: 10/31/24 00:19 <SANDI Mix Last Filed: 10/31/24 02:22> Source: patient and old records reviewed <SANDI Mix Last Filed: 10/31/24 02:22> Mode of arrival: ambulatory <SANDI Mix Last Filed: 10/31/24 02:22> Limitations: no limitations <SANDI Mix Last Filed: 10/31/24 02:22> History of Present Illness HPI Narrative: Patient is a 49-year-old female who presents the ED with report of fever. Patient reports she underwent cystoscopy with lithotripsy, stone extraction, left ureteral stent placement Friday (10/29/24) with Dr. Pepe for large/multiple kidney stones. States yesterday, she developed fever up to 101F. Took her [place] and ibuprofen at home but states fever continued to increase. She reports ongoing pain in her left flank/left-sided abdomen. Reports mild nausea today. Denies significant difficulty urinating. Has passed some blood/tissue, which she was told is to be expected. Otherwise denies cough, congestion, shortness of breath. <SANDI Mix Last Filed: 10/31/24 02:22> Related Data Home Medications: Home Medications ?Medication ?Instructions ?Recorded ?Confirmed ?Last Taken ?Type oxybutynin chloride 5 mg tablet 5 mg PO Q8H 10/22/24 10/31/24 10/30/24 History hydrocodone 5 mg-acetaminophen 325 1 tablet PO Q6H PRN pain 10/31/24 10/31/24 10/30/24 History mg tablet <SANDI Mix Last Filed: 10/31/24 02:22> Allergies/Adverse Reactions: Allergies Allergy/AdvReac Type Severity Reaction Status Date / Time nitrofurantoin (From Allergy Intermediate Rash Verified 10/30/24 19:57 Macrobid) Sulfa (Sulfonamide AdvReac Unknown Nausea and Verified 10/30/24 19:57 Antibiotics) Vomiting <Rosmery Ortiz PA-C - Last Filed: 10/31/24 02:22> Review of Systems Review of Systems: All systems reviewed & are unremarkable except as noted in HPI. <Rosmery Ortiz PA-C - Last Filed: 10/31/24 02:22> All systems reviewed & are unremarkable except as noted in HPI and below <Rosmery Ortiz PA-C - Last Filed: 10/31/24 02:22> FORMERLY [facility], [facility] Past Medical History Medical History: Medical History Morbid obesity Hypertension Kidney stones <Rosmery Ortiz PA-C - Last Filed: 10/31/24 02:22> Surgical History Surgical History: Surgical History Hx of nephrolithotomy with removal of calculi History of hysterectomy History of lithotripsy History of section x3 <Rosmery Ortiz PA-C - Last Filed: 10/31/24 02:22> Family History Family History: Family History Father Hypertension Mother Hypertension <Rosmery Ortiz PA-C - Last Filed: 10/31/24 02:22> Social History Social History: Social History Social History: Surrogate decision maker: Kian Griffiths, spouse. Code status: Full code. Smoking packs per day: 0 Smoking cigarettes per day: 0.0 Years smoked: 15 Smoking pack-years: 0.00 Smoking status: Never smoker Tobacco type: cigarettes Smokeless tobacco user: chewing tobacco Second hand tobacco smoke exposure: No Smoking end date: 11/11/12 Alcohol intake: never Substance use: never Do You Feel Safe in your Home?: Yes Lack of Transportation: No Lack of Food: Never True Current Housing: I Have Housing Concerned About Future Housing: No Difficulty Paying Gas/Electric Bills: No Difficulty Paying for Meds: No Currently Unemployed: No Education: Trade/Vocational Certificate Difficulty w/ Childcare or Family Care: No Living arrangements: with family Occupation/Education: unemployed 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 Gender identity (if verbalized by the patient): Female Sexual Orientation (if Verbalized by the Patient): Straight or Heterosexual Spiritual care concerns: No <Rosmery Ortiz PA-C - Last Filed: 10/31/24 02:22> Exam Narrative: GENERAL: Well appearing, morbidly obese with BMI of 51.8, non-toxic, in no acute distress. HEAD: Normocephalic, atraumatic. RESPIRATORY: Airway patent, respirations nonlabored. Clear to auscultation bilaterally, no rales, rhonchi, wheezing. CARDIOVASCULAR: Tachycardic with regular rhythm without murmurs, rubs, or gallops. ABDOMINAL: Soft, mild diffuse TTP in L mid to lower abdomen, +CVA tenderness on L, nondistended. Normoactive BS. MUSCULOSKELETAL: Moves all extremities. No gross deformities. SKIN: Warm, dry, normal color. NEURO: A&O X3. Speech clear. Cranial nerves II-XII grossly intact. Steady gait. No ataxic movements. PSYCHIATRIC: Appropriate mood and affect. Normal interaction. <Rosmery Ortiz PA-C - Last Filed: 10/31/24 02:22> Course ENERGY EFFICIENCY SPECIALIST/PA Physician Supervision This visit was performed by both a physician and an APC. For this patient encounter, I reviewed the ENERGY EFFICIENCY SPECIALIST or PA documentation, treatment plan, and medical decision making and had [id number] time with this patient. I performed all aspects of the MDM as documented. <Agnes Elliott MD - Last Filed: 10/31/24 06:50> Vital Signs Vital signs: Vital Signs Temperature 100.8 F H 10/30/24 19:52 Pulse Rate 100 10/30/24 19:52 Respiratory Rate 20 10/30/24 19:52 Blood Pressure 179/92 H 10/30/24 19:52 Pulse Oximetry 99 10/30/24 19:52 Oxygen Delivery Room Air 10/30/24 19:52 Temperature 96.9 F L 10/31/24 04:00 Pulse Rate 89 10/31/24 04:00 Respiratory Rate 20 10/31/24 04:00 Blood Pressure 117/66 10/31/24 04:00 Pulse Oximetry 97 10/31/24 04:00 Oxygen Delivery Room Air 10/31/24 03:35 <Rosmery Ortiz PA-C - Last Filed: 10/31/24 02:22> Vital Signs Temperature 100.8 F H 10/30/24 19:52 Pulse Rate 100 10/30/24 19:52 Respiratory Rate 20 10/30/24 19:52 Blood Pressure 179/92 H 10/30/24 19:52 Pulse Oximetry 99 10/30/24 19:52 Oxygen Delivery Room Air 10/30/24 19:52 Temperature 96.9 F L 10/31/24 04:00 Pulse Rate 89 10/31/24 04:00 Respiratory Rate 20 10/31/24 04:00 Blood Pressure 117/66 10/31/24 04:00 Pulse Oximetry 97 10/31/24 04:00 Oxygen Delivery Room Air 10/31/24 03:35 <Agnes Elliott MD - Last Filed: 10/31/24 06:50> MDM - Fever MDM Narrative Medical decision making narrative: Patient presented to ED with left-sided flank pain, fever, underwent urologic procedures yesterday. Patient febrile, tachycardic, hypertensive upon arrival. Fluids initiated. Tylenol given as well as morphine/Zofran for pain control. CBC with white blood cell count of 10.3. Kidney function is stable on CMP. Lactic acid 1.5. Inflammatory markers are elevated. Urinalysis with positive nitrates, 3+ leuk esterase, greater than 100 RBC/WBC, 4+ urine bacteria. Sent for culture. Blood cultures obtained. Given Rocephin in the ED. CT of the abdomen/pelvis was obtained. Ureteral stent in expected position. No significant abnormalities. Patient meeting sepsis criteria. Given 2 L fluid administration, blood and urine cultures obtained. Discussed case with Dr. Gonzalez, urology, recommended admission for further eval/iv abx pending cultures. Discussed case with Dr. Santana, hospitalist, accepted patient for admission. Patient and family in agreement with plan and admission. <Rosmery Ortiz PA-C - Last Filed: 10/31/24 02:22> Medical Records Attestation: I reviewed the patient's medical records. <Rosmery Ortiz PA-C - Last Filed: 10/31/24 02:22> Lab Data Attestation: I reviewed the patient's lab results. <Rosmery Ortiz PA-C - Last Filed: 10/31/24 02:22> Result diagrams: 10/30/24 22:11 10/30/24 22:11 <Rosmery Ortiz PA-C - Last Filed: 10/31/24 02:22> Labs: Lab Results 10/30/24 Range/Units 22:11 WBC 10.3 H (4.5-10.0) K/mm3 RBC 4.44 (4.2-5.4) M/mm3 Hgb 14.3 (12.0-15.0) g/dL Hct 41.3 (37.0-47.0) % MCV 93.0 (80-100) fl MCH 32.2 (26-34) pg MCHC 34.6 (32-36) g/dl RDW 12.3 (11.5-14.5) % Plt Count 209 (150-375) k/mm3 MPV 9.6 (7.4-10.4) fl Immature Gran % (Auto) 0.5 (0-0.5) % Neut % (Auto) 74.1 H (45.5-73.1) % Lymph % (Auto) 11.6 L (18.3-44.2) % [place] % (Auto) 12.0 H (2.6-8.5) % Eos % (Auto) 1.2 (0-4.4) % Baso % (Auto) 0.6 (0.2-1.2) % Lymph # (Auto) 1.19 (0.9-3.2) K/mm3 [place] # (Auto) 1.2 H (0.1-0.6) K/mm3 Eos # (Auto) 0.1 (0-0.3) K/mm3 Baso # (Auto) 0.1 (0.0-0.1) K/mm3 Abs Immat Gran (auto) 0.05 H (0.00-0.031) K/mm3 Absolute Neuts (auto) 7.6 H (1.3-6.7) K/mm3 Absolute Nucleated RBC 0.000 (0.0-0.012) K/mm3 Nucleated RBC % 0.0 (0.0-0.2) % PT 13.6 (11.1-14.7) Seconds INR 1.0 APTT 30.5 (22.3-36.8) Seconds Sodium 134 L (137-145) mmol/L Potassium 4.0 (3.4-5.0) mmol/L Chloride 103 (98-107) mmol/L Carbon Dioxide 24 (22-30) mmol/L Anion Gap 7 (4-12) mmol/L BUN 17 (7-17) mg/dL Creatinine 0.80 (0.7-1.0) mg/dL Estim Creat Clear Calc 110 ml/min Estimated GFR > 60 (59 - ) Glucose 122 H (65-110) mg/dL Lactic Acid 1.5 (0.7-2.0) mmol/L Calcium 8.4 (8.4-10.2) mg/dL Total Bilirubin 0.9 (0.2-1.3) mg/dL AST 30 (14-36) U/L ALT 30 (6-35) U/L Alkaline Phosphatase 67 (38-126) U/L C-Reactive Protein 12.7 H (<1.0) mg/dL Total Protein 7.4 (6.3-8.2) g/dL Albumin 4.0 (3.5-5.1) g/dL Lipase 29 (23-300) U/L Urine Color Yellow (Yellow) Urine Appearance Turbid H (Clear) Urine pH 5.5 (5.0-9.0) Ur Specific [place] 1.019 (1.001-1.035) Urine Protein 3+ H (Negative) mg/dL Urine Glucose (UA) Negative (Negative) mg/dL Urine Ketones Negative (Negative) mg/dL Ur Blood (Man) 3+ H (Negative) Urine Nitrate Positive H (Negative) Urine Bilirubin Negative (Negative) Urine Urobilinogen 1.0 (<2.0) mg/dL Add Ur Microanalysis Reviewed Leukocyte Esterase Rfl 3+ H (Negative) JENNIFER/UL Urine RBC >100 H (0-2) /hpf Urine WBC >100 H (0-3) /hpf Ur Squamous Epith Cells None seen (Few) /hpf Urine Bacteria 4+ H /hpf Urine Casts 0-2 <Rosmery Ortiz PA-C - Last Filed: 10/31/24 02:22> Lab Results 10/30/24 Range/Units 22:11 WBC 10.3 H (4.5-10.0) K/mm3 RBC 4.44 (4.2-5.4) M/mm3 Hgb 14.3 (12.0-15.0) g/dL Hct 41.3 (37.0-47.0) % MCV 93.0 (80-100) fl MCH 32.2 (26-34) pg MCHC 34.6 (32-36) g/dl RDW 12.3 (11.5-14.5) % Plt Count 209 (150-375) k/mm3 MPV 9.6 (7.4-10.4) fl Immature Gran % (Auto) 0.5 (0-0.5) % Neut % (Auto) 74.1 H (45.5-73.1) % Lymph % (Auto) 11.6 L (18.3-44.2) % [place] % (Auto) 12.0 H (2.6-8.5) % Eos % (Auto) 1.2 (0-4.4) % Baso % (Auto) 0.6 (0.2-1.2) % Lymph # (Auto) 1.19 (0.9-3.2) K/mm3 [place] # (Auto) 1.2 H (0.1-0.6) K/mm3 Eos # (Auto) 0.1 (0-0.3) K/mm3 Baso # (Auto) 0.1 (0.0-0.1) K/mm3 Abs Immat Gran (auto) 0.05 H (0.00-0.031) K/mm3 Absolute Neuts (auto) 7.6 H (1.3-6.7) K/mm3 Absolute Nucleated RBC 0.000 (0.0-0.012) K/mm3 Nucleated RBC % 0.0 (0.0-0.2) % PT 13.6 (11.1-14.7) Seconds INR 1.0 APTT 30.5 (22.3-36.8) Seconds Sodium 134 L (137-145) mmol/L Potassium 4.0 (3.4-5.0) mmol/L Chloride 103 (98-107) mmol/L Carbon Dioxide 24 (22-30) mmol/L Anion Gap 7 (4-12) mmol/L BUN 17 (7-17) mg/dL Creatinine 0.80 (0.7-1.0) mg/dL Estim Creat Clear Calc 110 ml/min Estimated GFR > 60 (59 - ) Glucose 122 H (65-110) mg/dL Lactic Acid 1.5 (0.7-2.0) mmol/L Calcium 8.4 (8.4-10.2) mg/dL Total Bilirubin 0.9 (0.2-1.3) mg/dL AST 30 (14-36) U/L ALT 30 (6-35) U/L Alkaline Phosphatase 67 (38-126) U/L C-Reactive Protein 12.7 H (<1.0) mg/dL Total Protein 7.4 (6.3-8.2) g/dL Albumin 4.0 (3.5-5.1) g/dL Lipase 29 (23-300) U/L Urine Color Yellow (Yellow) Urine Appearance Turbid H (Clear) Urine pH 5.5 (5.0-9.0) Ur Specific [place] 1.019 (1.001-1.035) Urine Protein 3+ H (Negative) mg/dL Urine Glucose (UA) Negative (Negative) mg/dL Urine Ketones Negative (Negative) mg/dL Ur Blood (Man) 3+ H (Negative) Urine Nitrate Positive H (Negative) Urine Bilirubin Negative (Negative) Urine Urobilinogen 1.0 (<2.0) mg/dL Add Ur Microanalysis Reviewed Leukocyte Esterase Rfl 3+ H (Negative) JENNIFER/UL Urine RBC >100 H (0-2) /hpf Urine WBC >100 H (0-3) /hpf Ur Squamous Epith Cells None seen (Few) /hpf Urine Bacteria 4+ H /hpf Urine Casts 0-2 <Agnes Elliott MD - Last Filed: 10/31/24 06:50> Imaging Data Attestation: I personally reviewed and interpreted this imaging study as follows: <Rosmery Ortiz PA-C - Last Filed: 10/31/24 02:22> Radiologist's impression: STAT RAD CT abd/pelvis: Impression: No acute findings. Left nephroureteral stent terminates in the urinary bladder. <Rosmery Ortiz PA-C - Last Filed: 10/31/24 02:22> Discharge Plan Discharge Clinical Impression: Postoperative fever, Abnormal urinalysis, Ureteral stent present Sepsis Qualifiers: Sepsis type: sepsis due to unspecified organism Sepsis acute organ dysfunction status: unspecified Qualified Code(s): A41.9 - Sepsis, unspecified organism <SANDI Mix Last Filed: 10/31/24 02:22> Patient Disposition: Still a Patient <SANDI Mix Last Filed: 10/31/24 02:22> Condition: Stable <SANDI Mix Last Filed: 10/31/24 02:22>
--- NOTE | 2024-10-31 03:35 | ADMGEN ---
This patient, Oneyda Griffiths, was admitted to [facility] Room 317-02. Patient/family oriented to hospital policies and general routines including ID bracelet, bed and alarms, visiting hours, pain management, procedures, bathroom and other care routines, personal items, smoking policy, room service/diet, and visiting hours. Information on how to activate the Rapid Response Team has been discussed. Patient/Family are encouraged to report perceived risks to care and to ask questions if they do not understand what they are told or what they should do.
[2024-10-31] MEDS: ACETAMINOPHEN 325 MG TABLET 650 MG PO ×3 (07:56→15:50)
--- NOTE | 2024-10-31 11:17 | P.CONUR_ITS ---
Assessment and Plan Assessment and plan (1) Sepsis: Code(s): A41.9 - Sepsis, unspecified organism Status: Acute Assessment and Plan: 49-year-old female with sepsis suspect secondary to urinary tract infection related to recent surgery. She has an appropriately positioned and well functioning stent so no evidence for surgical intervention. Continue broad- spectrum antibiotics until cultures return, then discharge on oral antibiotics through a total course of 7-10 days. (2) Ureteral stent present: Code(s): Z96.0 - Presence of urogenital implants Status: Acute (3) Urinary tract infection: Code(s): N39.0 - Urinary tract infection, site not specified Status: Acute Urology Consult Note HPI Date Seen: 10/31/24 Requesting Physician: Amanda Santana DO Primary Care Provider: Jarek Mayo MD Consult Narrative Narrative: Oneyda Griffiths is a 49 year old female with a large kidney stone who had an ESWL with stent placement followed by a ureteroscopy laser lithotripsy stent exchange just a few days ago with my partner Dr. Bach. She called our exchange and was directed to the emergency department with reports of fever. Initially in the emergency department she was febrile to 100.8 and was tachycardic, both have resolved with overnight supportive care and antibiotics. CT was reviewed, stent in his in appropriate position without hydronephrosis or residual stone fragment. Preop culture 10/20/2024 was negative. I can not see what preop antibiotic was administered during her surgery 10/29/2024. Review of Systems 2 Review of Systems: All systems reviewed & are unremarkable except as noted in HPI and below PMFSH Past Medical History Medical History Morbid obesity Hypertension Kidney stones Surgical History Surgical History Hx of nephrolithotomy with removal of calculi History of hysterectomy History of lithotripsy History of section x3 Family History Family History Father Hypertension Mother Hypertension Social History Social History Social History: Surrogate decision maker: Kian Griffiths, spouse. Code status: Full code. Smoking packs per day: 0 Smoking cigarettes per day: 0.0 Years smoked: 15 Smoking pack-years: 0.00 Smoking status: Never smoker Tobacco type: cigarettes Smokeless tobacco user: chewing tobacco Second hand tobacco smoke exposure: No Smoking end date: 11/11/12 Alcohol intake: never Substance use: never Do You Feel Safe in your Home?: Yes Lack of Transportation: No Lack of Food: Never True Current Housing: I Have Housing Concerned About Future Housing: No Difficulty Paying Gas/Electric Bills: No Difficulty Paying for Meds: No Currently Unemployed: No Education: Trade/Vocational Certificate Difficulty w/ Childcare or Family Care: No Living arrangements: with family Occupation/Education: unemployed 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 Gender identity (if verbalized by the patient): Female Sexual Orientation (if Verbalized by the Patient): Straight or Heterosexual Spiritual care concerns: No Meds Home Medications and Allergies Home Medications ?Medication ?Instructions ?Recorded ?Confirmed ?Type lisinopril 10 mg tablet 10 mg PO DAILY #90 tabs 04/1710/31/24 Rx oxybutynin chloride 5 mg tablet 5 mg PO Q8H 10/22/24 0 10/31/24 History hydrocodone 5 mg-acetaminophen 325 1 tablet PO Q6H PRN pain 10/31/24 10/31/24 History mg tablet Allergies Allergy/AdvReac Type Severity Reaction Status Date / Time nitrofurantoin (From Allergy Intermediate Rash Verified 10/30/24 19:57 Macrobid) Sulfa (Sulfonamide AdvReac Unknown Nausea and Verified 10/30/24 19:57 Antibiotics) Vomiting Vital Signs Vital Signs - 24 hr 10/30/24 19:52 10/30/24 23:30 10/30/24 23:31 Temperature 38.2 C H Pulse Rate 100 121 H 118 H Respiratory Rate 20 27 H 25 H Blood Pressure 179/92 H 143/89 H Pulse Oximetry 99 94 96 Oxygen Delivery Room Air 10/30/24 23:45 10/30/24 23:46 10/31/24 00:00 Temperature Pulse Rate 116 H 118 H 106 H Respiratory Rate 28 H 27 H 23 H Blood Pressure 123/78 102/53 L Pulse Oximetry 96 96 94 Oxygen Delivery 10/31/24 00:01 10/31/24 00:15 10/31/24 00:16 Temperature Pulse Rate 105 H 115 H 102 H Respiratory Rate 17 25 H 37 H Blood Pressure 102/56 L Pulse Oximetry 95 95 94 Oxygen Delivery 10/31/24 00:30 10/31/24 00:31 10/31/24 00:45 Temperature Pulse Rate 115 H 115 H 111 H Respiratory Rate 21 H 19 20 Blood Pressure 138/84 138/84 Pulse Oximetry 94 95 94 Oxygen Delivery 10/31/24 00:46 10/31/24 01:05 10/31/24 01:15 Temperature 37.5 C Pulse Rate 111 H 128 H Respiratory Rate 17 Blood Pressure Pulse Oximetry 95 Oxygen Delivery 10/31/24 01:15 10/31/24 01:17 10/31/24 01:23 Temperature Pulse Rate 116 H 106 H 111 H Respiratory Rate 28 H 11 L 14 Blood Pressure 191/162 H 129/59 L Pulse Oximetry 95 95 92 Oxygen Delivery 10/31/24 01:30 10/31/24 01:31 10/31/24 03:04 Temperature Pulse Rate 106 H 108 H 99 Respiratory Rate 21 H 29 H 15 Blood Pressure 111/75 Pulse Oximetry 91 92 95 Oxygen Delivery 10/31/24 03:07 10/31/24 03:35 10/31/24 04:00 Temperature 36.1 C L Pulse Rate 61 89 Respiratory Rate 16 20 Blood Pressure 130/95 H 117/66 Pulse Oximetry 98 97 Oxygen Delivery Room Air Exam 2 Narrative: 49-year-old female appears stated age without evidence of severe illness, focal deficit, etc.. Alert oriented. Results Labs 10/30/24 22:11 10/30/24 22:11 Labs: Short CBC 10/30/24 Range/Units 22:11 WBC 10.3 H (4.5-10.0) K/mm3 Hgb 14.3 (12.0-15.0) g/dL Hct 41.3 (37.0-47.0) % Plt Count 209 (150-375) k/mm3 BMP 10/30/24 22:11 Sodium 134 L Potassium 4.0 Chloride 103 Carbon Dioxide 24 BUN 17 Creatinine 0.80 Glucose 122 H Calcium 8.4 Liver Function 10/30/24 Range/Units 22:11 Total Bilirubin 0.9 (0.2-1.3) mg/dL AST 30 (14-36) U/L ALT 30 (6-35) U/L Alkaline Phosphatase 67 (38-126) U/L Albumin 4.0 (3.5-5.1) g/dL Urine 10/30/24 Range/Units 22:11 Urine Color Yellow (Yellow) Urine Appearance Turbid H (Clear) Urine pH 5.5 (5.0-9.0) Ur Specific [place] 1.019 (1.001-1.035) Urine Protein 3+ H (Negative) mg/dL Urine Glucose (UA) Negative (Negative) mg/dL
[2024-10-31] MEDS: SODIUM CHLORIDE 0.9% IV 1,000 ML 100 ML IV CONT (11:41)
--- NOTE | 2024-10-31 13:37 | PM.IMHP ---
H&P: HPI History of Present Illness Date/Time: 10/31/24 13:37 Chief Complaint: fever/post op complication Narrative: ER-HPI Narrative: Patient is a 49-year-old female who presents the ED with report of fever. Patient reports she underwent cystoscopy with lithotripsy, stone extraction, left ureteral stent placement Friday (10/29/24) with Dr. Pepe for large/multiple kidney stones. States yesterday, she developed fever up to 101F. Took her [place] and ibuprofen at home but states fever continued to increase. She reports ongoing pain in her left flank/left-sided abdomen. Reports mild nausea today. Denies significant difficulty urinating. Has passed some blood/tissue, which she was told is to be expected. Otherwise denies cough, congestion, shortness of breath. upon arrival patient had fever complaints abdominal, pain, however patient whit counts are no significantly elevated white counts and her lactic acid level is normal, suspect patient fever stemming for UTI, being treated with ceftriaxone, will increase to 2g per day, will monitor, and follow up urine culture, patient remains clinically stable, fever is resolved, patient is seen her urologist and recommended to [facility], her is present in the room and gave updates. Review of Systems Review of Systems: All systems reviewed & are unremarkable except as noted in HPI and below PMFSH Past Medical History Medical History Morbid obesity Hypertension Kidney stones Surgical History Surgical History Hx of nephrolithotomy with removal of calculi History of hysterectomy History of lithotripsy History of section x3 Family History Family History Father Hypertension Mother Hypertension Social History Social History Social History: Surrogate decision maker: Kian Griffiths, spouse. Code status: Full code. Smoking packs per day: 0 Smoking cigarettes per day: 0.0 Years smoked: 15 Smoking pack-years: 0.00 Smoking status: Never smoker Tobacco type: cigarettes Smokeless tobacco user: chewing tobacco Second hand tobacco smoke exposure: No Smoking end date: 11/11/12 Alcohol intake: never Substance use: never Do You Feel Safe in your Home?: Yes Lack of Transportation: No Lack of Food: Never True Current Housing: I Have Housing Concerned About Future Housing: No Difficulty Paying Gas/Electric Bills: No Difficulty Paying for Meds: No Currently Unemployed: No Education: Trade/Vocational Certificate Difficulty w/ Childcare or Family Care: No Living arrangements: with family Occupation/Education: unemployed 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 Gender identity (if verbalized by the patient): Female Sexual Orientation (if Verbalized by the Patient): Straight or Heterosexual Spiritual care concerns: No Meds Home Medications and Allergies Home Medications ?Medication ?Instructions ?Recorded ?Confirmed ?Type lisinopril 10 mg tablet 10 mg PO DAILY #90 tabs 05/05/24 10/31/24 Rx oxybutynin chloride 5 mg tablet 5 mg PO Q8H 10/22/24 10/31/24 History hydrocodone 5 mg-acetaminophen 325 1 tablet PO Q6H PRN pain 10/31/24 10/31/24 History mg tablet Allergies Allergy/AdvReac Type Severity Reaction Status Date / Time nitrofurantoin (From Allergy Intermediate Rash Verified 10/30/24 19:57 Macrobid) Sulfa (Sulfonamide AdvReac Unknown Nausea and Verified 10/30/24 19:57 Antibiotics) Vomiting Vital Signs Vital Signs - 24 hr 10/30/24 19:52 10/30/24 23:30 10/30/24 23:31 Temperature 38.2 C H Pulse Rate 100 121 H 118 H Respiratory Rate 20 27 H 25 H Blood Pressure 179/92 H 143/89 H Pulse Oximetry 99 94 96 Oxygen Delivery Room Air 10/30/24 23:45 10/30/24 23:46 10/31/24 00:00 Temperature Pulse Rate 116 H 118 H 106 H Respiratory Rate 28 H 27 H 23 H Blood Pressure 123/78 102/53 L Pulse Oximetry 96 96 94 Oxygen Delivery 10/31/24 00:01 10/31/24 00:15 10/31/24 00:16 Temperature Pulse Rate 105 H 115 H 102 H Respiratory Rate 17 25 H 37 H Blood Pressure 102/56 L Pulse Oximetry 95 95 94 Oxygen Delivery 10/31/24 00:30 10/31/24 00:31 10/31/24 00:45 Temperature Pulse Rate 115 H 115 H 111 H Respiratory Rate 21 H 19 20 Blood Pressure 138/84 138/84 Pulse Oximetry 94 95 94 Oxygen Delivery 10/31/24 00:46 10/31/24 01:05 10/31/24 01:15 Temperature 37.5 C Pulse Rate 111 H 128 H Respiratory Rate 17 Blood Pressure Pulse Oximetry 95 Oxygen Delivery 10/31/24 01:15 10/31/24 01:17 10/31/24 01:23 Temperature Pulse Rate 116 H 106 H 111 H Respiratory Rate 28 H 11 L 14 Blood Pressure 191/162 H 129/59 L Pulse Oximetry 95 95 92 Oxygen Delivery 10/31/24 01:30 10/31/24 01:31 10/31/24 03:04 Temperature Pulse Rate 106 H 108 H 99 Respiratory Rate 21 H 29 H 15 Blood Pressure 111/75 Pulse Oximetry 91 92 95 Oxygen Delivery 10/31/24 03:07 10/31/24 03:35 10/31/24 04:00 Temperature 36.1 C L Pulse Rate 61 89 Respiratory Rate 16 20 Blood Pressure 130/95 H 117/66 Pulse Oximetry 98 97 Oxygen Delivery Room Air Exam Narrative: Morbidly obese Patient is comfortable, NAD HEENT: eyes are clear and none icteric LUNGS:CTA HEART: RR S1S2 ABD: BS+, Soft and nontender Lower extremities: no edema SKIN: nonjaundiced Neuro: grossly intact. H&P: Results Labs Labs: Short CBC 10/30/24 Range/Units 22:11 WBC 10.3 H (4.5-10.0) K/mm3 Hgb 14.3 (12.0-15.0) g/dL Hct 41.3 (37.0-47.0) % Plt Count 209 (150-375) k/mm3 BMP 10/30/24 22:11 Sodium 134 L Potassium 4.0 Chloride 103 Carbon Dioxide 24 BUN 17 Creatinine 0.80 Glucose 122 H Calcium 8.4 Liver Function 10/30/24 Range/Units 22:11 Total Bilirubin 0.9 (0.2-1.3) mg/dL AST 30 (14-36) U/L ALT 30 (6-35) U/L Alkaline Phosphatase 67 (38-126) U/L Albumin 4.0 (3.5-5.1) g/dL Urine 10/30/24 Range/Units 22:11 Urine Color Yellow (Yellow) Urine Appearance Turbid H (Clear) Urine pH 5.5 (5.0-9.0) Ur Specific [place] 1.019 (1.001-1.035) Urine Protein 3+ H (Negative) mg/dL Urine Glucose (UA) Negative (Negative) mg/dL Assessment and Plan Assessment and plan (1) History of kidney stones: Code(s): Z87.442 - Personal history of urinary calculi Status: Acute (2) Renal calculus, right: Code(s): N20.0 - Calculus of kidney Status: Acute (3) Abnormal urinalysis: Code(s): R82.90 - Unspecified abnormal findings in urine Status: Acute (4) Essential (primary) hypertension: Code(s): I10 - Essential (primary) hypertension Status: Acute (5) Hyperlipidemia: Code(s): E78.5 - Hyperlipidemia, unspecified Status: Acute (6) IFG (impaired fasting glucose): Code(s): R73.01 - Impaired fasting glucose Status: Acute Plan upon arrival patient had fever complaints abdominal, pain, however patient whit counts are no significantly elevated white counts and her lactic acid level is normal, suspect patient fever stemming for UTI, being treated with ceftriaxone, will increase to 2g per day, will monitor, and follow up urine culture, patient remains clinically stable, fever is resolved, patient is seen her urologist and recommended to [facility], her is present in the room and gave updates.
[2024-10-31] MEDS: HYDROcodone/acetaminophen (*CRX) 10-325 MG TABLET 1 TAB PO (20:37)
[2024-11-01] MEDS: SODIUM CHLORIDE 0.9% IV 1,000 ML 100 ML IV CONT ×3 (00:15→20:22)
[2024-11-01] MEDS: SENNA/DOCUSATE SODIUM TABLET 1 TAB PO (00:15)
[2024-11-01] MEDS: cefTRIAXone 2 GM in SODIUM CHLORIDE 0.9% IV 100 ML 200 ML IVPB ×2 (00:15→22:18)
[2024-11-01] MEDS: HYDROcodone/acetaminophen (*CRX) 10-325 MG TABLET 1 TAB PO (02:45)
[2024-11-01 04:16] VITALS: BP 143/82; PULSE 95; RESP 18; TEMP 37.7; O2SAT 94
[2024-11-01 06:30] LABS: Hematocrit 35.7 % (37.0-47.0); Hemoglobin 12.1 g/dL (12.0-15.0); Mean Corpuscular HGB Conc 33.9 g/dl (32-36); Mean Corpuscular Hemoglobin 31.7 pg (26-34); Mean Corpuscular Volume 93.5 fl (80-100); Platelet Count Result 185 k/mm3 (150-375); Red Blood Count 3.82 M/mm3 (4.2-5.4); White Blood Count 8.1 K/mm3 (4.5-10.0)
[2024-11-01 06:50] LABS: Anion Gap 7 mmol/L (4-12); Blood Urea Nitrogen 9 mg/dL (7-17); Calcium 8.0 mg/dL (8.4-10.2); Carbon Dioxide 25 mmol/L (22-30); Chloride 102 mmol/L (98-107); Estimated CRCL calculation 142 ml/min; Estimated Glomerular Filt Rate > 60; Glucose 149 mg/dL (65-110); Magnesium 1.8 mg/dL (1.6-2.3); Potassium 3.6 mmol/L (3.4-5.0); Sodium 134 mmol/L (137-145)
[2024-11-01] MEDS: ACETAMINOPHEN 325 MG TABLET 650 MG PO ×3 (10:13→22:18)
--- NOTE | 2024-11-01 11:59 | PM.IMPN ---
Progress Note: A&P Assessment and Plan (1) History of kidney stones: Code(s): Z87.442 - Personal history of urinary calculi Status: Acute (2) Renal calculus, right: Code(s): N20.0 - Calculus of kidney Status: Acute (3) Abnormal urinalysis: Code(s): R82.90 - Unspecified abnormal findings in urine Status: Acute (4) Essential (primary) hypertension: Code(s): I10 - Essential (primary) hypertension Status: Acute (5) Hyperlipidemia: Code(s): E78.5 - Hyperlipidemia, unspecified Status: Acute (6) IFG (impaired fasting glucose): Code(s): R73.01 - Impaired fasting glucose Status: Acute Plan upon arrival patient had fever complaints abdominal, pain, however patient whit counts are no significantly elevated white counts and her lactic acid level is normal, suspect patient fever stemming for UTI, being treated with ceftriaxone, will increase to 2g per day, will monitor, and follow up urine culture, patient remains clinically stable, fever is resolved, patient is seen her urologist and recommended to [facility], her is present in the room and gave updates. patient with UTI and being treated ceftriaxone 2g qd, urine and blood culture are pending, patient still have fever, clinically stable, will monitor and follow up urine and blood culture, patient is present in the room and gave updates, will monitor, Subjective Date/time seen: 11/01/24 11:59 Interval history: upon arrival patient had fever complaints abdominal, pain, however patient whit counts are no significantly elevated white counts and her lactic acid level is normal, suspect patient fever stemming for UTI, being treated with ceftriaxone, will increase to 2g per day, will monitor, and follow up urine culture, patient remains clinically stable, fever is resolved, patient is seen her urologist and recommended to [facility], her is present in the room and gave updates. patient with UTI and being treated ceftriaxone 2g qd, urine and blood culture are pending, patient still have fever, clinically stable, will monitor and follow up urine and blood culture, patient is present in the room and gave updates, will monitor, Review of Systems Review of Systems: All systems reviewed & are unremarkable except as noted in HPI and below Exam Narrative: Morbidly obese Patient is comfortable, NAD HEENT: eyes are clear and none icteric LUNGS:CTA HEART: RR S1S2 ABD: BS+, Soft and nontender Lower extremities: no edema SKIN: nonjaundiced Neuro: grossly intact. Objective Data Vital Signs Vital Signs: Vital Signs - 24 hr 10/31/24 15:31 10/31/24 19:42 10/31/24 20:00 Temperature 36.9 C 37.3 C Pulse Rate 92 95 95 Respiratory Rate 20 16 16 Blood Pressure 152/75 H 146/89 H Pulse Oximetry 100 94 94 Oxygen Delivery Room Air 11/01/24 04:16 Temperature 37.7 C H Pulse Rate 95 Respiratory Rate 18 Blood Pressure 143/82 H Pulse Oximetry 94 Oxygen Delivery Intake/Output Intake/Output: Intake & Output 10/29/24 10/30/24 10/31/24 11/01/24 23:59 23:59 23:59 23:59 Intake Total 4330 1790 Balance 4330 1790 Meds/Results Medications: Active Medications Generic Name Dose Route Start Last Admin Trade Name Freq PRN Reason Stop Dose Admin Acetaminophen 650 mg 10/31/24 02:10 11/01/24 10:13 Acetaminophen 325 Mg Tablet PO 650 mg Q4H PRN Administration Mild Pain (1-3) or Fever Hydrocodone Bitart/Acetaminophen 1 tab 10/31/24 20:12 11/01/24 02:45 Hydrocodone/Acetaminophen (*Crx) 10-325 Mg Tablet PO 1 tab Q6H PRN Administration Pain Rated 7-10 Dextrose 12.5 gm 10/31/24 02:10 Dextrose 50% 25 Gm/50 Ml Syringe IV PUSH PRN PRN Hypoglycemia Protocol Glucagon 1 mg 10/31/24 02:10 Glucagon For Inj 1 Mg Vial IM PRN PRN Hypoglycemia Protocol Glucose 15 gm 10/31/24 02:10 Glucose Oral Gel 15 Gm Of Glucse In 37.5 Gm Tube PO PRN PRN Hypoglycemia Protocol Sodium Chloride 1,000 mls @ 100 mls/hr 10/31/24 02:10 11/01/24 10:17 Normal Saline Iv IV CONT 100 mls/hr .Q10H ANYA Administration Dextrose 1,000 mls @ 100 mls/hr 10/31/24 02:10 Dextrose 5% 1,000 Ml IVPB PRN PRN Hypoglycemia Protocol Ceftriaxone Sodium 2 gm/ 100 mls @ 200 mls/hr 10/31/24 23:00 11/01/24 00:15 Sodium Chloride IVPB 200 mls/hr Q24H ANYA Administration Morphine Sulfate 4 mg 10/31/24 02:10 Morphine Sulfate (*Crx) 4 Mg/Ml Inj IV PUSH Q2H PRN Pain Rated 7-10 Ondansetron HCl 4 mg 10/31/24 02:10 Ondansetron Inj 4 Mg/2 Ml Vial IV PUSH Q4H PRN Nausea Polyethylene Glycol 17 gm 10/31/24 22:30 Polyethylene Glycol 3350 17 Gm Powd.Pack PO QAM PRN Constipation Senna/Docusate Sodium 1 tab 10/31/24 22:35 11/01/24 00:15 Senna/Docusate Sodium Tablet PO 1 tab HS ANYA Administration Radiology Results: ITS Impressions Chest X-Ray 10/31/24 12:39 Impression: No acute cardiopulmonary abnormality. Labs Labs: Laboratory Results - last 24 hr 11/01/24 05:50 WBC 8.1 RBC 3.82 L Hgb 12.1 Hct 35.7 L MCV 93.5 MCH 31.7 MCHC 33.9 RDW 12.4 Plt Count 185 MPV 9.8 Sodium 134 L Potassium 3.6 Chloride 102 Carbon Dioxide 25 Anion Gap 7 BUN 9 D Creatinine 0.63 L Estim Creat Clear Calc 142 Estimated GFR > 60 Glucose 149 H Calcium 8.0 L Magnesium 1.8
[2024-11-01 13:58] VITALS: BP 132/58; PULSE 88; RESP 18; TEMP 36.8; O2SAT 97
--- NOTE | 2024-11-01 14:01 | WPDUROPN2 ---
Progress Note: A&P Assessment and Plan (1) Ureteral stent present: Code(s): Z96.0 - Presence of urogenital implants Status: Acute (2) Urinary tract infection: Qualifiers: Urinary tract infection type: site unspecified Hematuria presence: with hematuria Qualified Code(s): N39.0 - Urinary tract infection, site not specified; R31.9 - Hematuria, unspecified Code(s): N39.0 - Urinary tract infection, site not specified Status: Acute Assessment and Plan: Present on admission Plan - Continue Abx; urine culture pending, once resulted transition to susceptibility based Abx - Continue to trend temp. Tmax 99.9, afebrile x 24 hr - Tentatively plan for stent removal with Dr. Bach on 11/03/2024 - No plan for acute surgical intervention at this time Subjective Subjective Date/Time Seen: 11/01/24 14:01 Interval history: Pt with subjective spike in fever at 0500 now resolved, no additional events since this time. Manageable stent symptoms but otherwise without complaints. Exam Const: General: comfortable and no acute distress Eyes: EOM: EOMs intact bilaterally Resp: Effort & Inspection: normal respiratory effort Skin: General skin exam: normal color and no rashes or lesions noted Neuro: Speech: normal speech Psych: Mental Status: mental status grossly normal Affect: normal affect Objective Data Vital Signs Vital Signs: Vital Signs - 24 hr 10/31/24 15:31 10/31/24 19:42 10/31/24 20:00 Temperature 98.4 F 99.1 F Pulse Rate 92 95 95 Respiratory Rate 20 16 16 Blood Pressure 152/75 H 146/89 H Pulse Oximetry 100 94 94 Oxygen Delivery Room Air 11/01/24 04:16 11/01/24 13:58 Temperature 99.9 F H 98.3 F Pulse Rate 95 88 Respiratory Rate 18 18 Blood Pressure 143/82 H 132/58 L Pulse Oximetry 94 97 Oxygen Delivery Intake/Output Intake/Output: Intake & Output 10/29/24 10/30/24 10/31/24 11/01/24 23:59 23:59 23:59 23:59 Intake Total 4330 2029 Balance 4330 2030 Meds/Results Medications: Active Medications Generic Name Dose Route Start Last Admin Trade Name Freq PRN Reason Stop Dose Admin Acetaminophen 650 mg 10/31/24 02:10 11/01/24 10:13 Acetaminophen 325 Mg Tablet PO 650 mg Q4H PRN Administration Mild Pain (1-3) or Fever Hydrocodone Bitart/Acetaminophen 1 tab 10/31/24 20:12 11/01/24 02:45 Hydrocodone/Acetaminophen (*Crx) 10-325 Mg Tablet PO 1 tab Q6H PRN Administration Pain Rated 7-10 Dextrose 12.5 gm 10/31/24 02:10 Dextrose 50% 25 Gm/50 Ml Syringe IV PUSH PRN PRN Hypoglycemia Protocol Glucagon 1 mg 10/31/24 02:10 Glucagon For Inj 1 Mg Vial IM PRN PRN Hypoglycemia Protocol Glucose 15 gm 10/31/24 02:10 Glucose Oral Gel 15 Gm Of Glucse In 37.5 Gm Tube PO PRN PRN Hypoglycemia Protocol Sodium Chloride 1,000 mls @ 100 mls/hr 10/31/24 02:10 11/01/24 10:17 Normal Saline Iv IV CONT 100 mls/hr .Q10H ANYA Administration Dextrose 1,000 mls @ 100 mls/hr 10/31/24 02:10 Dextrose 5% 1,000 Ml IVPB PRN PRN Hypoglycemia Protocol Ceftriaxone Sodium 2 gm/ 100 mls @ 200 mls/hr 10/31/24 23:00 11/01/24 00:15 Sodium Chloride IVPB 200 mls/hr Q24H ANYA Administration Morphine Sulfate 4 mg 10/31/24 02:10 Morphine Sulfate (*Crx) 4 Mg/Ml Inj IV PUSH Q2H PRN Pain Rated 7-10 Ondansetron HCl 4 mg 10/31/24 02:10 Ondansetron Inj 4 Mg/2 Ml Vial IV PUSH Q4H PRN Nausea Polyethylene Glycol 17 gm 10/31/24 22:30 Polyethylene Glycol 3350 17 Gm Powd.Pack PO QAM PRN Constipation Senna/Docusate Sodium 1 tab 10/31/24 22:35 11/01/24 00:15 Senna/Docusate Sodium Tablet PO 1 tab HS ANYA Administration Radiology Results: ITS Impressions Chest X-Ray 10/31/24 12:39 Impression: No acute cardiopulmonary abnormality. Labs Labs: Laboratory Results - last 24 hr 11/01/24 05:50 WBC 8.1 RBC 3.82 L Hgb 12.1 Hct 35.7 L MCV 93.5 MCH 31.7 MCHC 33.9 RDW 12.4 Plt Count 185 MPV 9.8 Sodium 134 L Potassium 3.6 Chloride 102 Carbon Dioxide 25 Anion Gap 7 BUN 9 D Creatinine 0.63 L Estim Creat Clear Calc 142 Estimated GFR > 60 Glucose 149 H Calcium 8.0 L Magnesium 1.8
[2024-11-01 18:01] VITALS: TEMP 37.4
[2024-11-01 18:44] VITALS: TEMP 37.6
[2024-11-01 21:22] VITALS: BP 134/85; PULSE 71; RESP 16; TEMP 37.2; O2SAT 98
[2024-11-02 05:12] VITALS: BP 148/93; PULSE 91; RESP 16; TEMP 37.4; O2SAT 98
[2024-11-02 05:48] LABS: Hematocrit 36.1 % (37.0-47.0); Hemoglobin 12.4 g/dL (12.0-15.0); Mean Corpuscular HGB Conc 34.3 g/dl (32-36); Mean Corpuscular Hemoglobin 31.7 pg (26-34); Mean Corpuscular Volume 92.3 fl (80-100); Platelet Count Result 188 k/mm3 (150-375); Red Blood Count 3.91 M/mm3 (4.2-5.4); White Blood Count 7.7 K/mm3 (4.5-10.0)
[2024-11-02 06:09] LABS: Anion Gap 6 mmol/L (4-12); Blood Urea Nitrogen 10 mg/dL (7-17); Calcium 8.2 mg/dL (8.4-10.2); Carbon Dioxide 24 mmol/L (22-30); Chloride 106 mmol/L (98-107); Estimated CRCL calculation 175 ml/min; Estimated Glomerular Filt Rate > 60; Glucose 147 mg/dL (65-110); Magnesium 2.0 mg/dL (1.6-2.3); Potassium 3.8 mmol/L (3.4-5.0); Sodium 136 mmol/L (137-145)
[2024-11-02] MEDS: SODIUM CHLORIDE 0.9% IV 1,000 ML 100 ML IV CONT ×2 (07:17→18:21)
--- NOTE | 2024-11-02 12:41 | PM.IMPN ---
Progress Note: A&P Assessment and Plan (1) History of kidney stones: Code(s): Z87.442 - Personal history of urinary calculi Status: Acute (2) Renal calculus, right: Code(s): N20.0 - Calculus of kidney Status: Acute (3) Abnormal urinalysis: Code(s): R82.90 - Unspecified abnormal findings in urine Status: Acute (4) Essential (primary) hypertension: Code(s): I10 - Essential (primary) hypertension Status: Acute (5) Hyperlipidemia: Code(s): E78.5 - Hyperlipidemia, unspecified Status: Acute (6) IFG (impaired fasting glucose): Code(s): R73.01 - Impaired fasting glucose Status: Acute Plan upon arrival patient had fever complaints abdominal, pain, however patient whit counts are no significantly elevated white counts and her lactic acid level is normal, suspect patient fever stemming for UTI, being treated with ceftriaxone, will increase to 2g per day, will monitor, and follow up urine culture, patient remains clinically stable, fever is resolved, patient is seen her urologist and recommended to [facility], her is present in the room and gave updates. patient with UTI and being treated ceftriaxone 2g qd, urine is growing gram negative bacilli, identification and sensitivity is pending, blood culture are pending, patient still have fever, clinically stable, will monitor and follow up urine and blood culture, patient is present in the room and gave updates, will monitor, Subjective Date/time seen: 11/02/24 12:41 Interval history: upon arrival patient had fever complaints abdominal, pain, however patient whit counts are no significantly elevated white counts and her lactic acid level is normal, suspect patient fever stemming for UTI, being treated with ceftriaxone, will increase to 2g per day, will monitor, and follow up urine culture, patient remains clinically stable, fever is resolved, patient is seen her urologist and recommended to [facility], her is present in the room and gave updates. patient with UTI and being treated ceftriaxone 2g qd, urine is growing gram negative bacilli, identification and sensitivity is pending, blood culture are pending, patient still have fever, clinically stable, will monitor and follow up urine and blood culture, patient is present in the room and gave updates, will monitor, Review of Systems Review of Systems: All systems reviewed & are unremarkable except as noted in HPI and below Exam Narrative: Morbidly obese Patient is comfortable, NAD HEENT: eyes are clear and none icteric LUNGS:CTA HEART: RR S1S2 ABD: BS+, Soft and nontender Lower extremities: no edema SKIN: nonjaundiced Neuro: grossly intact. Objective Data Vital Signs Vital Signs: Vital Signs - 24 hr 11/01/24 13:58 11/01/24 18:01 11/01/24 18:44 Temperature 36.8 C 37.4 C 37.6 C H Pulse Rate 88 Respiratory Rate 18 Blood Pressure 132/58 L Pulse Oximetry 97 11/01/24 21:22 11/02/24 05:12 Temperature 37.2 C 37.4 C Pulse Rate 71 91 Respiratory Rate 16 16 Blood Pressure 134/85 148/93 H Pulse Oximetry 98 98 Intake/Output Intake/Output: Intake & Output 10/30/24 10/31/24 11/01/24 11/02/24 23:59 23:59 23:59 23:59 Intake Total 4330 3370 1418 Balance 4330 3370 1418 Meds/Results Medications: Active Medications Generic Name Dose Route Start Last Admin Trade Name Freq PRN Reason Stop Dose Admin Acetaminophen 650 mg 10/31/24 02:10 11/01/24 22:18 Acetaminophen 325 Mg Tablet PO 650 mg Q4H PRN Administration Mild Pain (1-3) or Fever Hydrocodone Bitart/Acetaminophen 1 tab 10/31/24 20:12 11/01/24 02:45 Hydrocodone/Acetaminophen (*Crx) 10-325 Mg Tablet PO 1 tab Q6H PRN Administration Pain Rated 7-10 Dextrose 12.5 gm 10/31/24 02:10 Dextrose 50% 25 Gm/50 Ml Syringe IV PUSH PRN PRN Hypoglycemia Protocol Glucagon 1 mg 10/31/24 02:10 Glucagon For Inj 1 Mg Vial IM PRN PRN Hypoglycemia Protocol Glucose 15 gm 10/31/24 02:10 Glucose Oral Gel 15 Gm Of Glucse In 37.5 Gm Tube PO PRN PRN Hypoglycemia Protocol Sodium Chloride 1,000 mls @ 100 mls/hr 10/31/24 02:10 11/02/24 07:17 Normal Saline Iv IV CONT 100 mls/hr .Q10H ANYA Administration Dextrose 1,000 mls @ 100 mls/hr 10/31/24 02:10 Dextrose 5% 1,000 Ml IVPB PRN PRN Hypoglycemia Protocol Ceftriaxone Sodium 2 gm/ 100 mls @ 200 mls/hr 10/31/24 23:00 11/01/24 22:18 Sodium Chloride IVPB 200 mls/hr Q24H ANYA Administration Morphine Sulfate 4 mg 10/31/24 02:10 Morphine Sulfate (*Crx) 4 Mg/Ml Inj IV PUSH Q2H PRN Pain Rated 7-10 Ondansetron HCl 4 mg 10/31/24 02:10 Ondansetron Inj 4 Mg/2 Ml Vial IV PUSH Q4H PRN Nausea Polyethylene Glycol 17 gm 10/31/24 22:30 Polyethylene Glycol 3350 17 Gm Powd.Pack PO QAM PRN Constipation Senna/Docusate Sodium 1 tab 10/31/24 22:35 11/01/24 20:18 Senna/Docusate Sodium Tablet PO Not Given HS [facility] Radiology Results: ITS Impressions Chest X-Ray 10/31/24 12:39 Impression: No acute cardiopulmonary abnormality. Abdomen/Pelvis CT 11/01/24 16:19 IMPRESSION: 1. Diffuse hepatic steatosis. 2. Supraumbilical ventral hernia containing fat. Umbilical hernia containing fat. Labs Labs: Laboratory Results - last 24 hr 11/02/24 05:34 WBC 7.7 RBC 3.91 L Hgb 12.4 Hct 36.1 L MCV 92.3 MCH 31.7 MCHC 34.3 RDW 12.2 Plt Count 188 MPV 9.5 Sodium 136 L Potassium 3.8 Chloride 106 Carbon Dioxide 24 Anion Gap 6 BUN 10 Creatinine 0.50 L Estim Creat Clear Calc 175 Estimated GFR > 60 Glucose 147 H Calcium 8.2 L Magnesium 2.0
[2024-11-02 13:50] VITALS: BP 130/76; PULSE 74; RESP 16; TEMP 36.4; O2SAT 99
[2024-11-02 18:27] VITALS: TEMP 37.3
[2024-11-02] MEDS: ACETAMINOPHEN 325 MG TABLET 650 MG PO (18:28)
[2024-11-02 20:00] VITALS: PULSE 68; RESP 18; O2SAT 95
[2024-11-02 21:09] VITALS: BP 140/80; PULSE 68; RESP 18; TEMP 36.8; O2SAT 95
[2024-11-02] MEDS: cefTRIAXone 2 GM in SODIUM CHLORIDE 0.9% IV 100 ML 200 ML IVPB (22:30)
[2024-11-03] MEDS: SODIUM CHLORIDE 0.9% IV 1,000 ML 100 ML IV CONT (05:02)
[2024-11-03 05:06] VITALS: BP 146/77; PULSE 67; RESP 16; TEMP 37; O2SAT 99
[2024-11-03 06:18] LABS: Hematocrit 34.5 % (37.0-47.0); Hemoglobin 11.7 g/dL (12.0-15.0); Mean Corpuscular HGB Conc 33.9 g/dl (32-36); Mean Corpuscular Hemoglobin 31.9 pg (26-34); Mean Corpuscular Volume 94.0 fl (80-100); Platelet Count Result 216 k/mm3 (150-375); Red Blood Count 3.67 M/mm3 (4.2-5.4); White Blood Count 6.9 K/mm3 (4.5-10.0)
[2024-11-03 06:41] LABS: Anion Gap 4 mmol/L (4-12); Blood Urea Nitrogen 13 mg/dL (7-17); Calcium 8.2 mg/dL (8.4-10.2); Carbon Dioxide 26 mmol/L (22-30); Chloride 107 mmol/L (98-107); Estimated CRCL calculation 158 ml/min; Estimated Glomerular Filt Rate > 60; Glucose 145 mg/dL (65-110); Magnesium 1.9 mg/dL (1.6-2.3); Potassium 3.8 mmol/L (3.4-5.0); Sodium 137 mmol/L (137-145)
--- NOTE | 2024-11-03 07:47 | P.PNUR_ITS ---
Progress Note: A&P Assessment and Plan (1) Ureteral stent present: Code(s): Z96.0 - Presence of urogenital implants Status: Acute (2) Urinary tract infection: Qualifiers: Urinary tract infection type: site unspecified Hematuria presence: with hematuria Qualified Code(s): N39.0 - Urinary tract infection, site not specified; R31.9 - Hematuria, unspecified Code(s): N39.0 - Urinary tract infection, site not specified Status: Acute Plan - Continue Abx; urine culture pending, once resulted transition to susceptibility based Abx and hopefully discharge home -will postpone stent removal with Dr. Bach to 11/12/2024 --please discharge home on appropriate antibiotics through at least 11/15/24 - No plan for acute surgical intervention at this time Subjective Subjective Date/Time Seen: 11/03/24 07:47 Interval history: No overnight events. Feeling well Objective Data Vital Signs Vital Signs: Vital Signs - 24 hr 11/02/24 13:50 11/02/24 18:27 11/02/24 20:00 Temperature 36.4 C L 37.3 C Pulse Rate 74 68 Respiratory Rate 16 18 Blood Pressure 130/76 Pulse Oximetry 99 95 Oxygen Delivery Room Air 11/02/24 21:09 11/03/24 05:06 Temperature 36.8 C 37.0 C Pulse Rate 68 67 Respiratory Rate 18 16 Blood Pressure 140/80 146/77 H Pulse Oximetry 95 99 Oxygen Delivery Intake/Output Intake/Output: Intake & Output 10/31/24 11/01/24 11/02/24 11/03/24 23:59 23:59 23:59 23:59 Intake Total 4330 3470 3978 1450 Balance 4330 3470 3978 1450 Meds/Results Medications: Active Medications Generic Name Dose Route Start Last Admin Trade Name Freq PRN Reason Stop Dose Admin Acetaminophen 650 mg 10/31/24 02:10 11/02/24 18:28 Acetaminophen 325 Mg Tablet PO 650 mg Q4H PRN Administration Mild Pain (1-3) or Fever Hydrocodone Bitart/Acetaminophen 1 tab 10/31/24 20:12 11/01/24 02:45 Hydrocodone/Acetaminophen (*Crx) 10-325 Mg Tablet PO 1 tab Q6H PRN Administration Pain Rated 7-10 Dextrose 12.5 gm 10/31/24 02:10 Dextrose 50% 25 Gm/50 Ml Syringe IV PUSH PRN PRN Hypoglycemia Protocol Glucagon 1 mg 10/31/24 02:10 Glucagon For Inj 1 Mg Vial IM PRN PRN Hypoglycemia Protocol Glucose 15 gm 10/31/24 02:10 Glucose Oral Gel 15 Gm Of Glucse In 37.5 Gm Tube PO PRN PRN Hypoglycemia Protocol Sodium Chloride 1,000 mls @ 100 mls/hr 10/31/24 02:10 11/03/24 05:02 Normal Saline Iv IV CONT 100 mls/hr .Q10H ANYA Administration Dextrose 1,000 mls @ 100 mls/hr 10/31/24 02:10 Dextrose 5% 1,000 Ml IVPB PRN PRN Hypoglycemia Protocol Ceftriaxone Sodium 2 gm/ 100 mls @ 200 mls/hr 10/31/24 23:00 11/02/24 23:00 Sodium Chloride IVPB Infused Q24H ANYA Infusion Morphine Sulfate 4 mg 10/31/24 02:10 Morphine Sulfate (*Crx) 4 Mg/Ml Inj IV PUSH Q2H PRN Pain Rated 7-10 Ondansetron HCl 4 mg 10/31/24 02:10 Ondansetron Inj 4 Mg/2 Ml Vial IV PUSH Q4H PRN Nausea Polyethylene Glycol 17 gm 10/31/24 22:30 Polyethylene Glycol 3350 17 Gm Powd.Pack PO QAM PRN Constipation Senna/Docusate Sodium 1 tab 10/31/24 22:35 11/02/24 21:03 Senna/Docusate Sodium Tablet PO Not Given HS [facility] Radiology Results: ITS Impressions Chest X-Ray 10/31/24 12:39 Impression: No acute cardiopulmonary abnormality. Abdomen/Pelvis CT 11/01/24 16:19 IMPRESSION: 1. Diffuse hepatic steatosis. 2. Supraumbilical ventral hernia containing fat. Umbilical hernia containing fat. Labs Labs: Laboratory Results - last 24 hr 11/03/24 05:45 WBC 6.9 RBC 3.67 L Hgb 11.7 L Hct 34.5 L MCV 94.0 MCH 31.9 MCHC 33.9 RDW 12.3 Plt Count 216 MPV 9.6 Sodium 137 Potassium 3.8 Chloride 107 Carbon Dioxide 26 Anion Gap 4 BUN 13 Creatinine 0.56 L Estim Creat Clear Calc 158 Estimated GFR > 60 Glucose 145 H Calcium 8.2 L Magnesium 1.9
[2024-11-03 14:00] VITALS: BP 156/86; PULSE 80; RESP 18; TEMP 37.1; O2SAT 99
--- NOTE | 2024-11-03 14:56 | P.PNIM_ITS ---
Progress Note: A&P Assessment and Plan (1) History of kidney stones: Code(s): Z87.442 - Personal history of urinary calculi Status: Acute (2) Renal calculus, right: Code(s): N20.0 - Calculus of kidney Status: Acute (3) Abnormal urinalysis: Code(s): R82.90 - Unspecified abnormal findings in urine Status: Acute (4) Essential (primary) hypertension: Code(s): I10 - Essential (primary) hypertension Status: Acute (5) Hyperlipidemia: Code(s): E78.5 - Hyperlipidemia, unspecified Status: Acute (6) IFG (impaired fasting glucose): Code(s): R73.01 - Impaired fasting glucose Status: Acute Plan upon arrival patient had fever complaints abdominal, pain, however patient whit counts are no significantly elevated white counts and her lactic acid level is normal, suspect patient fever stemming for UTI, being treated with ceftriaxone, will increase to 2g per day, will monitor, and follow up urine culture, patient remains clinically stable, fever is resolved, patient is seen her urologist and recommended to [facility], her is present in the room and gave updates. patient with UTI and being treated ceftriaxone 2g qd, patient clinical symptoms are improving, no fever, and white counts are trending down, urine is growing E coli multi drug resistant, will stop ceftriaxone and start meropenem, patient is seen by her urologist recommended to continue IV abx, clinically stable, will monitor and follow up urine and blood culture. Subjective Date/time seen: 11/03/24 14:56 Interval history: upon arrival patient had fever complaints abdominal, pain, however patient whit counts are no significantly elevated white counts and her lactic acid level is normal, suspect patient fever stemming for UTI, being treated with ceftriaxone, will increase to 2g per day, will monitor, and follow up urine culture, patient remains clinically stable, fever is resolved, patient is seen her urologist and recommended to [facility], her is present in the room and gave updates. patient with UTI and being treated ceftriaxone 2g qd, patient clinical symptoms are improving, no fever, and white counts are trending down, urine is growing E coli multi drug resistant, will stop ceftriaxone and start meropenem, patient is seen by her urologist recommended to continue IV abx, clinically stable, will monitor and follow up urine and blood culture. Review of Systems Review of Systems: All systems reviewed & are unremarkable except as noted in HPI and below Exam Narrative: Morbidly obese Patient is comfortable, NAD HEENT: eyes are clear and none icteric LUNGS:CTA HEART: RR S1S2 ABD: BS+, Soft and nontender Lower extremities: no edema SKIN: nonjaundiced Neuro: grossly intact. Objective Data Vital Signs Vital Signs: Vital Signs - 24 hr 11/02/24 18:27 11/02/24 20:00 11/02/24 21:09 Temperature 37.3 C 36.8 C Pulse Rate 68 68 Respiratory Rate 18 18 Blood Pressure 140/80 Pulse Oximetry 95 95 Oxygen Delivery Room Air 11/03/24 05:06 11/03/24 08:00 Temperature 37.0 C Pulse Rate 67 Respiratory Rate 16 Blood Pressure 146/77 H Pulse Oximetry 99 Oxygen Delivery Room Air Intake/Output Intake/Output: Intake & Output 10/31/24 11/01/24 11/02/24 11/03/24 23:59 23:59 23:59 23:59 Intake Total 4330 3470 3978 1690 Balance 4330 3470 3978 1690 Meds/Results Medications: Active Medications Generic Name Dose Route Start Last Admin Trade Name Freq PRN Reason Stop Dose Admin Acetaminophen 650 mg 10/31/24 02:10 11/02/24 18:28 Acetaminophen 325 Mg Tablet PO 650 mg Q4H PRN Administration Mild Pain (1-3) or Fever Hydrocodone Bitart/Acetaminophen 1 tab 10/31/24 20:12 11/01/24 02:45 Hydrocodone/Acetaminophen (*Crx) 10-325 Mg Tablet PO 1 tab Q6H PRN Administration Pain Rated 7-10 Dextrose 12.5 gm 10/31/24 02:10 Dextrose 50% 25 Gm/50 Ml Syringe IV PUSH PRN PRN Hypoglycemia Protocol Glucagon 1 mg 10/31/24 02:10 Glucagon For Inj 1 Mg Vial IM PRN PRN Hypoglycemia Protocol Glucose 15 gm 10/31/24 02:10 Glucose Oral Gel 15 Gm Of Glucse In 37.5 Gm Tube PO PRN PRN Hypoglycemia Protocol Dextrose 1,000 mls @ 100 mls/hr 10/31/24 02:10 Dextrose 5% 1,000 Ml IVPB PRN PRN Hypoglycemia Protocol Meropenem 1 gm/ Sodium 100 mls @ 200 mls/hr 11/03/24 15:00 Chloride IVPB Q8H ANYA Morphine Sulfate 4 mg 10/31/24 02:10 Morphine Sulfate (*Crx) 4 Mg/Ml Inj IV PUSH Q2H PRN Pain Rated 7-10 Ondansetron HCl 4 mg 10/31/24 02:10 Ondansetron Inj 4 Mg/2 Ml Vial IV PUSH Q4H PRN Nausea Polyethylene Glycol 17 gm 10/31/24 22:30 Polyethylene Glycol 3350 17 Gm Powd.Pack PO QAM PRN Constipation Senna/Docusate Sodium 1 tab 10/31/24 22:35 11/02/24 21:03 Senna/Docusate Sodium Tablet PO Not Given HS [facility] Radiology Results: ITS Impressions Chest X-Ray 10/31/24 12:39 Impression: No acute cardiopulmonary abnormality. Abdomen/Pelvis CT 11/01/24 16:19 IMPRESSION: 1. Diffuse hepatic steatosis. 2. Supraumbilical ventral hernia containing fat. Umbilical hernia containing fat. Labs Labs: Laboratory Results - last 24 hr 11/03/24 05:45 WBC 6.9 RBC 3.67 L Hgb 11.7 L Hct 34.5 L MCV 94.0 MCH 31.9 MCHC 33.9 RDW 12.3 Plt Count 216 MPV 9.6 Sodium 137 Potassium 3.8 Chloride 107 Carbon Dioxide 26 Anion Gap 4 BUN 13 Creatinine 0.56 L Estim Creat Clear Calc 158 Estimated GFR > 60 Glucose 145 H Calcium 8.2 L Magnesium 1.9
[2024-11-03] MEDS: SULFAMETHOXAZOLE/TRIMETHOPRIM 800/160 MG DS TABLET 1 TAB PO (18:17)
[2024-11-03 21:43] VITALS: BP 137/97; PULSE 68; RESP 16; TEMP 36.6; O2SAT 99
[2024-11-04] MEDS: SULFAMETHOXAZOLE/TRIMETHOPRIM 800/160 MG DS TABLET 1 TAB PO ×2 (00:33→08:07)
[2024-11-04 06:00] VITALS: BP 156/101; PULSE 65; RESP 14; TEMP 36.8; O2SAT 98
[2024-11-04 06:57] LABS: Hematocrit 36.1 % (37.0-47.0); Hemoglobin 12.4 g/dL (12.0-15.0); Mean Corpuscular HGB Conc 34.3 g/dl (32-36); Mean Corpuscular Hemoglobin 31.7 pg (26-34); Mean Corpuscular Volume 92.3 fl (80-100); Platelet Count Result 251 k/mm3 (150-375); Red Blood Count 3.91 M/mm3 (4.2-5.4); White Blood Count 7.2 K/mm3 (4.5-10.0)
[2024-11-04 07:29] LABS: Anion Gap 6 mmol/L (4-12); Blood Urea Nitrogen 10 mg/dL (7-17); Calcium 8.7 mg/dL (8.4-10.2); Carbon Dioxide 26 mmol/L (22-30); Chloride 105 mmol/L (98-107); Estimated CRCL calculation 158 ml/min; Estimated Glomerular Filt Rate > 60; Glucose 146 mg/dL (65-110); Magnesium 2.0 mg/dL (1.6-2.3); Potassium 3.8 mmol/L (3.4-5.0); Sodium 137 mmol/L (137-145)
--- NOTE | 2024-11-04 08:55 | WPDUROPN2 ---
Progress Note: A&P Assessment and Plan (1) Ureteral stent present: Code(s): Z96.0 - Presence of urogenital implants Status: Acute (2) Urinary tract infection: Qualifiers: Urinary tract infection type: site unspecified Hematuria presence: with hematuria Qualified Code(s): N39.0 - Urinary tract infection, site not specified; R31.9 - Hematuria, unspecified Code(s): N39.0 - Urinary tract infection, site not specified Status: Acute Plan - Patient to be discharged on Bactrim based on results of the urine culture. I have discussed this with Dr. Bach and Dr. Brown. She has agreed to continue to take this medication with the risk of allergic reaction as noted. We have discussed ER management of reaction if necessary. -will postpone stent removal with Dr. Bach to 11/12/2024 --please discharge home on appropriate antibiotics through at least 11/15/24 Subjective Subjective Date/Time Seen: 11/04/24 08:55 Interval history: Patient sitting up in the bed chatting with her this morning. She reports she is doing well and she is ready to go home. Patient states so far she has had 3 doses of Bactrim and is doing well. Review of Systems Review of Systems: All systems reviewed & are unremarkable except as noted in HPI and below Exam Const: General: comfortable and no acute distress Eyes: EOM: EOMs intact bilaterally Resp: Effort & Inspection: normal respiratory effort Skin: General skin exam: normal color and no rashes or lesions noted Neuro: Speech: normal speech Psych: Mental Status: mental status grossly normal Affect: normal affect Objective Data Vital Signs Vital Signs: Vital Signs - 24 hr 11/03/24 14:00 11/03/24 21:43 11/04/24 06:00 Temperature 98.7 F 97.8 F 98.2 F Pulse Rate 80 68 65 Respiratory Rate 18 16 14 Blood Pressure 156/86 H 137/97 H 156/101 H Pulse Oximetry 99 99 98 Intake/Output Intake/Output: Intake & Output 11/01/24 11/02/24 11/03/24 11/04/24 23:59 23:59 23:59 23:59 Intake Total 3470 3978 2170 340 Balance 3470 3978 2170 340 Meds/Results Medications: Active Medications Generic Name Dose Route Start Last Admin Trade Name Freq PRN Reason Stop Dose Admin Acetaminophen 650 mg 10/31/24 02:10 11/02/24 18:28 Acetaminophen 325 Mg Tablet PO 650 mg Q4H PRN Administration Mild Pain (1-3) or Fever Hydrocodone Bitart/Acetaminophen 1 tab 10/31/24 20:12 11/01/24 02:45 Hydrocodone/Acetaminophen (*Crx) 10-325 Mg Tablet PO 1 tab Q6H PRN Administration Pain Rated 7-10 Dextrose 12.5 gm 10/31/24 02:10 Dextrose 50% 25 Gm/50 Ml Syringe IV PUSH PRN PRN Hypoglycemia Protocol Glucagon 1 mg 10/31/24 02:10 Glucagon For Inj 1 Mg Vial IM PRN PRN Hypoglycemia Protocol Glucose 15 gm 10/31/24 02:10 Glucose Oral Gel 15 Gm Of Glucse In 37.5 Gm Tube PO PRN PRN Hypoglycemia Protocol Dextrose 1,000 mls @ 100 mls/hr 10/31/24 02:10 Dextrose 5% 1,000 Ml IVPB PRN PRN Hypoglycemia Protocol Morphine Sulfate 4 mg 10/31/24 02:10 Morphine Sulfate (*Crx) 4 Mg/Ml Inj IV PUSH Q2H PRN Pain Rated 7-10 Ondansetron HCl 4 mg 10/31/24 02:10 Ondansetron Inj 4 Mg/2 Ml Vial IV PUSH Q4H PRN Nausea Polyethylene Glycol 17 gm 10/31/24 22:30 Polyethylene Glycol 3350 17 Gm Powd.Pack PO QAM PRN Constipation Senna/Docusate Sodium 1 tab 10/31/24 22:35 11/04/24 02:30 Senna/Docusate Sodium Tablet PO Not Given HS [facility] Trimethoprim/Sulfamethoxazole 1 tab 11/03/24 16:30 11/04/24 08:07 Sulfamethoxazole/Trimethoprim 800/160 Mg Ds Tablet PO 11/15/24 21:01 1 tab Q12HR ANYA Administration Radiology Results: ITS Impressions Chest X-Ray 10/31/24 12:39 Impression: No acute cardiopulmonary abnormality. Abdomen/Pelvis CT 11/01/24 16:19 IMPRESSION: 1. Diffuse hepatic steatosis. 2. Supraumbilical ventral hernia containing fat. Umbilical hernia containing fat. Labs Labs: Laboratory Results - last 24 hr 11/04/24 06:24 WBC 7.2 RBC 3.91 L Hgb 12.4 Hct 36.1 L MCV 92.3 MCH 31.7 MCHC 34.3 RDW 12.2 Plt Count 251 MPV 9.4 Sodium 137 Potassium 3.8 Chloride 105 Carbon Dioxide 26 Anion Gap 6 BUN 10 Creatinine 0.56 L Estim Creat Clear Calc 158 Estimated GFR > 60 Glucose 146 H Calcium 8.7 Magnesium 2.0
--- NOTE | 2024-11-04 09:34 | P.DS_ITS ---
DS: Admitting Diagnosis Discharge Date 11/04/24 Admitting Diagnosis fever/post op complication DS: Discharge Diagnosis Discharge Diagnosis (1) History of kidney stones: Code(s): Z87.442 - Personal history of urinary calculi Status: Acute (2) Renal calculus, right: Code(s): N20.0 - Calculus of kidney Status: Acute (3) Abnormal urinalysis: Code(s): R82.90 - Unspecified abnormal findings in urine Status: Acute (4) Essential (primary) hypertension: Code(s): I10 - Essential (primary) hypertension Status: Acute (5) Hyperlipidemia: Code(s): E78.5 - Hyperlipidemia, unspecified Status: Acute (6) IFG (impaired fasting glucose): Code(s): R73.01 - Impaired fasting glucose Status: Acute Plan upon arrival patient had fever complaints abdominal, pain, however patient whit counts are no significantly elevated white counts and her lactic acid level is normal, suspect patient fever stemming for UTI, being treated with ceftriaxone, will increase to 2g per day, will monitor, and follow up urine culture, patient remains clinically stable, fever is resolved, patient is seen her urologist and recommended to [facility], her is present in the room and gave updates. patient with UTI and being treated ceftriaxone 2g qd, patient clinical symptoms are improving, no fever, and white counts are trending down, urine is growing E coli multi drug resistant, will stop ceftriaxone and start meropenem, patient is seen by her urologist recommended to continue IV abx, clinically stable, will monitor and follow up urine and blood culture. DS: Summary Hospital Course Hospital Course: upon arrival patient had fever complaints abdominal, pain, however patient whit counts are no significantly elevated white counts and her lactic acid level is normal, suspect patient fever stemming for UTI, being treated with ceftriaxone, will increase to 2g per day, will monitor, and follow up urine culture, patient remains clinically stable, fever is resolved, patient is seen her urologist and recommended to [facility], her is present in the room and gave updates. patient with UTI and being treated ceftriaxone 2g qd, patient clinical symptoms are improving, no fever, and white counts are trending down, urine is growing E coli multi drug resistant, will stop ceftriaxone and start meropenem, patient is seen by her urologist recommended to continue IV abx, clinically stable, will monitor and follow up urine and blood culture. Patient urine is growing E.coli discussed with clinical pharmacist and recommended Bactrim DS, also discussed with urologist and agrees with plan, patient was able to tolerate the antibiotics, patient is clinically stable, will discharge home today. Time Spent with Patient Time attestation: Total time spent providing and/or coordinating discharge services: Exam Narrative: Morbidly obese Patient is comfortable, NAD HEENT: eyes are clear and none icteric LUNGS:CTA HEART: RR S1S2 ABD: BS+, Soft and nontender Lower extremities: no edema SKIN: nonjaundiced Neuro: grossly intact. DS: Data Data Completed and Pending Labs on day of discharge: Labs from last 24 hours 11/04/24 06:24 WBC 7.2 RBC 3.91 L Hgb 12.4 Hct 36.1 L MCV 92.3 MCH 31.7 MCHC 34.3 RDW 12.2 Plt Count 251 MPV 9.4 Sodium 137 Potassium 3.8 Chloride 105 Carbon Dioxide 26 Anion Gap 6 BUN 10 Creatinine 0.56 L Estim Creat Clear Calc 158 Estimated GFR > 60 Glucose 146 H Calcium 8.7 Magnesium 2.0 Preliminary micro results at discharge 10/31/24 00:28 Blood Culture - Preliminary Blood 10/30/24 22:47 Blood Culture - Preliminary Blood Discharge Plan Discharge Attending physician on discharge: Amanda Snatana Consulting providers: Frank Gonzalez; Paras Castillo; Agnes Elliott; Shantel Daily; Niki Bach; Darlene Shine; Emeterio Randolph; Matthew Tapia V. Discharging Clinician: Roseann Brown Patient Disposition: Home Activity: as tolerated Diet: heart healthy Discharge Instructions: patient to follow discharge care instruction from her urologist and follow up as scheduled, patient to follow up with her primary care provider as soon as possible, patient is instructed is she develops any symptom, abdominal pain, nausea, vomiting or rash to go to nearest ER. Patient Instructions: Antibiotic Form Patient Language: Ukrainian Stand Alone Forms: General Discharge Information Follow-up/Referrals: Jarek Mayo MD [Primary Care Provider, Family Practice] Niki Bach MD [Physician, Urology] - 11/03/24 9:30 am Referral Note: Ureteral stent removal Discharge Medications: New sennosides-docusate sodium [Senokot-S] 8.6-50 mg Tablet 1 tab-cap PO HS Qty: 30 0RF polyethylene glycol 3350 [Miralax] 17 gram Powder In Packet 17 g PO QAM PRN (Reason: Constipation) Qty: 14 0RF sulfamethoxazole-trimethoprim 800-160 mg Tablet 1 tab PO Q12HR Qty: 26 0RF Continued oxybutynin chloride 5 mg tablet 5 mg PO Q8H hydrocodone-acetaminophen 5-325 mg tablet 1 tablet PO Q6H PRN (Reason: pain) lisinopril 10 mg tablet 10 mg PO DAILY Qty: 90 2RF Date of admission: 11/02/24 10:54 Primary Care Provider: Jarek Mayo Admitting Provider: Amanda Santana Attending physician on admission: Roseann Brown Condition: Stable
[2024-11-04] MEDS: ACETAMINOPHEN 325 MG TABLET 650 MG PO (10:45)
== END 2024-11-04 11:15 | disposition home or self-care (01) | DRG 699 ==
LOC: ANHED 10-31 01:59 → ANH3MEDSUR 10-31 02:44
PROVIDERS: Emergency Medicine; Admitting Provider Internal Medicine; Emergency Provider Physician Assistant; PCP Family Medicine; Visit Provider Family Medicine
DX: T83.592A Infection and inflammatory reaction due to indwelling ureteral stent, initial encounter (principal); N39.0 Urinary tract infection, site not specified; Z68.43 Body mass index [BMI] 50.0-59.9, adult; B96.20 Unspecified Escherichia coli [E. coli] as the cause of diseases classified elsewhere; E66.01 Morbid (severe) obesity due to excess calories; I10 Essential (primary) hypertension; E78.5 Hyperlipidemia, unspecified; R73.01 Impaired fasting glucose; Z96.0 Presence of urogenital implants; Z87.442 Personal history of urinary calculi
CPT/HCPCS: 36415; 71046; 74177; 80048; 80053; 81001; 83605; 83690; 83735; 85025; 85027; 85610; 85730; 86140; 87040; 87086; 87186; 93005; 96361; 96365; 96375; 99285; A9270; G0378; J0696; J2270; J2405; J7030; Q9967

== ENCOUNTER 2024-12-22 08:11 | Outpatient (CLI) | payer BC, SELFPAY ==
--- NOTE | ~2024-12-22 | XR_ITS ---
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 Technique: 3 view. Findings: Bowel gas pattern unremarkable. No obstruction. Moderate fecal content obscures evaluation, no renal or ureteral calculi identified No acute osseous abnormality. Impression: 1. No acute abnormality. Reviewed, dictated and finalized at location P. EDICAL EQUIPMENT TECHNICIAN Impression: 1. No acute abnormality.
--- NOTE | ~2024-12-22 | US_ITS ---
Clinical history:Left ureteral stone. Follow-up EXAM:Ultrasound retroperitoneal complete TECHNIQUE:Multiple static grayscale images and color Doppler images of the retroperitoneal region Comparisons:CT abdomen and pelvis 10/31/2024 FINDINGS: Right kidney measures 15.3 x 5.5 x 5.3 cm. Mild right-sided pelvocaliectasis. Differential includes parapelvic cyst versus mild right-sided hydronephrosis. Left kidney measures 12.7 x 4.8 x 6.6 cm. Left-sided hydronephrosis identified. Visualized bladder is unremarkable. IMPRESSION: 1. Right kidney measures 15.3 x 5.5 x 5.3 cm. Mild right-sided pelvocaliectasis. Differential includes but is not limited to parapelvic cyst versus mild right- sided hydronephrosis. 2. Left kidney measures 12.7 x 4.8 x 6.6 cm. Left-sided hydronephrosis identified. If continued concern, consider a short-term follow-up study or additional imaging for further assessment. Reviewed, dictated and finalized at location Q. ICAL ADMINISTRATIVE COORDINATOR IMPRESSION: 1. Right kidney measures 15.3 x 5.5 x 5.3 cm. Mild right-sided pelvocaliectasis . Differential includes but is not limited to parapelvic cyst versus mild right -sided hydronephrosis. 2. Left kidney measures 12.7 x 4.8 x 6.6 cm. Left-sided hydronephrosis identifi ed. If continued concern, consider a short-term follow-up study or additional imagi ng for further assessment.
== END 2024-12-22 08:12 | disposition home or self-care (01) ==
LOC: GOSHIMG 08:12
PROVIDERS: PCP Family Medicine; Visit Provider Urology
DX: N20.1 Calculus of ureter (principal)
CPT/HCPCS: 74018; 76770

== ENCOUNTER 2024-12-30 08:25 | Outpatient (CLI) | payer BC, SELFPAY ==
--- NOTE | ~2024-12-30 | MM_ITS ---
EXAMINATION: MM screening [facility] BI w braden HISTORY: Screening TECHNIQUE: Craniocaudal and mediolateral oblique 3-D tomosynthesis images were obtained and synthetic 2-D images were generated. CAD analysis was submitted and interpreted. COMPARISON: Comparison to multiple prior studies sequentially, with oldest reviewed study dated 01/11/2019. BREAST PARENCHYMAL COMPOSITION: Not Dense: The breasts are almost entirely fatty. FINDINGS: There is a new mass in the lower central aspect of the right breast, middle third. The left breast is stable without evidence for malignancy. IMPRESSION: 1. New right breast mass. 2. Additional mammographic views and possible breast ultrasound are recommended. BI-RADS Category 0: Incomplete: Needs additional imaging evaluation. Reviewed, dictated and finalized at location B. T TAXONOMY TEACHER IMPRESSION: 1. New right breast mass. 2. Additional mammographic views and possible breast ultrasound are recommended . BI-RADS Category 0: Incomplete: Needs additional imaging evaluation.
--- OUTSIDE RECORDS SUMMARY | 2024-12-30 08:35 | XMS_ITS | Clinical Summary ---
Author Organization [facility] Address [address] [place] [address] Care Team Providers Care Child Psychiatrist Name Role Phone Jarek Mayo MD Primary Care Provider [phone] Source Comments [facility],non-owned Affiliates and Associated Physician Practices is amultiple site organization consisting of ambulatory clinics and hospital sitesin [place], [place], [place] and [place]. This disclosure is being madepursuant to the Care Everywhere program and may not contain all information available regarding this patient. Last updated 17.[facility] Allergies Active Allergy Reactions Criticality Noted Date [...] patient's age to complete this topic Insurance [facility] SELF PAY NO INSURANCE Member Subscriber Plan / Payer (Ef fective for All Dates) Name:Matthew Griffiths Member ID:Not on file Relation to Subscriber:Not on file Name:MATTHEW GRIFFITHS Subscriber ID:Not on file (Home) Address: [address] [place], [place] [id number] Payer ID:Not on file Group ID:Not on file Type:Self Pay Address: [place], [place] ANTHEM [facility] ANTHEM Care Teams Child Psychiatrist Relationship Specialty Start Date End Date Jarek Mayo MD [address] [place] [address] PCP - General 08/14/21
--- OUTSIDE RECORDS SUMMARY | 2024-12-30 08:36 | XMS_ITS | Clinical Summary ---
Author Organization [facility] Address [address] [place] [address] Phone Care Team Providers Care Outboard Motor Assembler Name Role Phone Jarek Mayo MD Primary Care Provider [phone] Allergies Active Allergy Reactions Criticality Noted Date [...] Encounters Date Type Department Care Team Description 11/23/2024 External Device Data STL ABSTRACTION Provider, Abstract from Last 3 Months Family History Medical [...] on file Legal Sex Female 5:18 PM CANNON PINION ADJUSTER Gender Identity Not on file Sexual Orientation Not on file Last Filed Vital Signs Vital Sign Reading Time Taken Comments Blood Pressure 116/65 04/09/2023 4:00 PM CANNON PINION ADJUSTER Pulse 86 04/09/2023 4:00 PM CANNON PINION ADJUSTER Temperature 37.1 C (98.8 F) 04/09/2023 4:00 PM CANNON PINION ADJUSTER Respiratory Rate 16 04/09/2023 4:00 PM CANNON PINION ADJUSTER Oxygen Saturation 92% 04/09/2023 4:00 PM CANNON PINION ADJUSTER Inhaled Oxygen Concentration - - Weight 136.1 kg (300 lb) 04/09/2023 12:49 PM CANNON PINION ADJUSTER Height 170.2 cm (5' 7) 04/09/2023 12:49 PM CANNON PINION ADJUSTER Body Mass Index 46.99 04/09/2023 12:49 PM CANNON PINION ADJUSTER Plan of Treatment Health Maintenance Due Date [...] 11/15/2027 11/14/2022 Medical Devices Implanted Type Area Coding Machine Operator Device Identifier Shelf Expiration Date Model / Serial / Lot Hemostat Berenice Ah Powder 3gm [id number] - [id number] Implanted:Qty : 1 on 12/27/2022 by Maday Gay MD at [facility] Hemostatic N/A: Pelvis BARD DAVOL [id number] 06/15/2027 [id number] / / [id number] Procedures Procedure Name Priority Date/Time Associated Diagnosis Comments CERV/VAG CYTO AGE BASED SCREEN PAP Routine 11/14/2022 2:46 PM CDT Menorrhagia with irregular cycle from Last 3 Months or Most Recently Relevant to Health Maintenance Results * CERV/VAG CYTO AGE BASED SCREEN PAP (11/14/2022 2:46 PM CDT) COMMENT (PAP): [email or web address] Comment: This order for age-based cervical cancer and STI screening follows ACOG guidelines(PB 168, 140, NXN543). See individual assays for performing site location. CLINICAL INFORMATION [email or web address] Comment:None given LAST MENSTRUAL PERIOD [facility] [place] Comment:11/14/2022 PREV PAP: [facility] [place] Comment:NONE GIVEN PREV BX: [facility] [place] Comment:NONE GIVEN SOURCE [facility] [place] Comment:Endocervix ADEQUACY: [email or web address] [place] Comment: Satisfactory for evaluation. Endocervical/transformation zone component present. PAP INTERP [facility] [place] Comment: Cytology Results: Negative for intraepithelial lesion or malignancy. COMMENT (PAP TEST) [facility] Comment: This Pap test has been evaluated with computer assisted technology. ELECTRONIC VIDEO GAMES SERVICER: Rogelio Rios Comment: NURIS MORLEY(ASCP) CT screening location: [place] [address] [place] [address] EXPLANATORY NOTE Que LinkedwithNesha Rios Comment: EXPLANATORY NOTE: The Pap is [...] information. HPV E6/E7 Not Detected Not Detected [employer] [facility] [place] Comment: Methodology: Lead Cargoman-Mediated Amplification This assay detects E6/E7 viral messenger RNA (mRNA) from 14 high-risk HPV types (16,18,31,33,35,39,45,51,52,56,58,59,66,68). Cervical sources are required for HPV testing. If a vaginal source from a patient who has had a total hysterectomy with removal of cervix was submitted, please contact the testing laboratory for alternative testing options. For additional information, please refer to http://education.Athersys/faq/OCG622g0 (This link if provided for information/ educational purposes only.) Test Performed at: [email or web address] [id number] [address] Jarek Miller PhD SL Genital SWAB OF ENDOCERVIX / Unknown 11/14/2022 2:46 PM CDT 11/15/2022 12:08 AM CDT Maday Gay MD PATHOLOGY/CYTOLOGY ORDERABLES F inal Result [facility] [phone] [email or web address] [id number] [phone] from Last 3 Months or Most Recently Relevant to Health Maintenance Insurance BLUE ACCESS CHOICE Advance Directives For more information, please contact: [phone] * Full Code (Latest Code Status on File) Date Activated Date Inactivated Comments 12/27/2022 9:42 AM 12/27/2022 10:24 PM Care Teams Outboard Motor Assembler Relationship Specialty Start Date End Date Jarek Mayo MD [address] [facility] [address] [place] [address] PCP - General Family Practice 03/31/18
--- OUTSIDE RECORDS SUMMARY | 2024-12-30 08:36 | XMS_ITS | Clinical Summary ---
Author Organization [address] Address [address] [place] [address] Care Team Providers Care Sliver Handler Name Role Phone Jarek Mayo MD Primary Care Provider Niki Bach MD Unavailable [phone] Allergies Active Allergy Reactions Criticality Noted Date Comments Nitrofurantoin Other (See comments),Nausea & Vomiting Medium 10/13/2024 Chest pain Sulfa Nausea & Vomiting Low 10/09/2024 Sulfanilamide Nausea only,Vomiting Reaction: Nausea, Vomiting, Medications multivitamin-Ca- iron-minerals tablet Take by mouth. Active lisinopriL (PRINIVIL,ZESTRI L) 10 mg tablet Take 1 tablet (10 mg total) by mouth daily 02/22/2022 Active Active Problems Problem Noted Date Diagnosed Date Calculus of ureter 02/09/2024 Encounters Date Type Department Care Team Description 10/10/2024 Results Follow-Up [facility] [place] [address] Selam James, MARNI Urine culture Urine, clean voided 10/09/2024 5:34 PM CDT - 10/09/2024 11:59 PM CDT Hospital Encounter [address] [address] Flank pain Discharge Disposition: Discharge to home or self care 10/09/2024 12:30 PM CDT Office Visit [facility] [place] [address] Selam James NP Flank pain (Primary Dx); [...] on file Legal Sex Female 8:04 AM CONCESSION STAND ATTENDANT Gender Identity Not on file Sexual Orientation [...] Screening 09/27/1993 Regular Well Visit/Exam 18-64 09/27/1993 Pneumococcal vaccine <65 (1 of 2 - PCV) 09/27/1994 Depression Screening 12/19/2017 12/19/2016, 10/28/2016, 09/23/2016, Additional history exists Covid-19 Vaccine ( - 2024-2 6 season) 2024 05/23/2020, 05/02/2020 Breast Cancer Screening-Mammogram Discontinued DTaP/Tdap/Td Vaccine Discontinued Influenza Vaccine Discontinued Medical Devices Implanted Type Area Hop Farmer Device Identifier Shelf Expiration Date Model / Serial / Lot [employer] Amplatz Rb 8.5fr 28cm 6 Sideport Introducer Catheter String [id number] - [id number] Implanted:Qty: 1 on 03/24/2024 at [facility] [employer] 11/04/2026 [id number] / [id number] Procedures Procedure Name Priority Date/Time Associated Diagnosis [...] bacterial amy. (.) Comment:Testing performed by : [facility], [address] [place]., [address] Organism ESCHERICHIA COLI AYEMADHU Organism PLUS GROWTH OF CLINICALLY INSIGNIFICANT AMY. TISH Urine, clean voided 10/09/2024 5:34 PM CDT 10/09/2024 8:01 PM CDT Narrative AYEMADHU - 10/12/2024 6:00 PM CDT Testing performed by [facility] ([phone]) Organism Antibiotic Method Susceptibility Escherichia coli Ampicillin [...] coli Fosfomycin INTERPRETATION Susceptible us Selam James LINK TRAINER MAINTENANCE MAN LAB MICROBIOLOGY - GENERAL ORD ERABLES Final Result T[facility] [address] Department [place] [address] * (ABNORMAL) POCT urinalysis dipstick (10/09/2024 12:28 PM CDT) Color, Urine, POC Light Yellow Clarity, ur, POC Cloudy(A) Clear Glucose, ur, POC Negative Negative Bilirubin, ur, POC Negative Negative Ketones, ur, POC Negative Negative Specific [place], POC Comment:<=1.005 Blood, ur, POC Moderate(A) Negative pH, ur, POC 5.5 5.0 - 8.0 Protein, ur, POC Negative Negative Urobilinogen, urine, POC 0.2 0.2 - 1.0 mg/dL Nitrite, ur, POC Negative Negative Leukocytes, ur, POC Small(A) Negative Lot Number [id number] Urine 10/09/2024 12:2 8 PM CDT Selam James NP POINT OF CARE TEST ORDERABLES Final Result from Last 3 Months Additional Health Concerns Infection Onset Date Last Indicated MDR gram neg/ESBL 10/09/2024 10/09/2024 [place] [employer] [place] [employer] [place] Advance Directives For more information, please contact: [phone] * Full Code (Latest Code Status on File) Date Activated Date Inactivated Comments 03/23/2024 5:05 PM 03/25/2024 6:08 PM Care Teams Sliver Handler Relationship Specialty Start Date End Date Jarek Mayo MD [address] [place] [address] PCP - General Family Medicine 12/12/23 Niki Bach MD [address] [place] [address] Consulting Physician Urology 03/25/24
--- OUTSIDE RECORDS SUMMARY | 2024-12-30 08:36 | XMS_ITS | Encounter Summary ---
Author Organization [facility] Address [address] [place] [address] Care Team Providers Care Broaching Machine Operator Name Role Phone Jarek Mayo MD Primary Care Provider [phone] Encounter Details Date Type Department Care Team (Late st Contact Info) Description 04/25/2021 Lab Requisition [facility] DermPath [facility] [address] [place] [address] Federico Kidd MD [address] [place] [address] Social History Tobacco Use Types [...] Comments DERMATOPATHOLOGY Routine 04/24/2021 12:0 0 AM EYEGLASS LENS GENERATOR documented in this encounter Results * DERMATOPATHOLOGY (04/24/2021 12:00 AM EYEGLASS LENS GENERATOR) Case Report Dermatopathology Report Case: [id number] Authorizing Provider: Federico Kidd MD Collected: 04/24/2021 12:00 AM Ordering Location: [facility] DermPath Lab Received: 04/25/2021 12:40 PM Pathologist: Vesta Pastor MD Specimen: Skin, left cheek ant to earlobe 2 4:26 PM [facility] DERMATOPATHOLOGY LABORATORY Final Diagnosis Specimen A. SKIN, left cheek ant to earlobe: SEBORRHEIC KERATOSIS, RETICULATED (ADENOID) TYPE (L82.1) 2 4:26 PM [facility] DERMATOPATHOLOGY LABORATORY at [address] EYEGLASS LENS GENERATOR Clinical History R/O Dysplastic Nevus vs. AK 2 4:26 PM [facility] DERMATOPATHOLOGY LABORATORY Gross Description Specimen A: Received is one formalin filled container labeled with the patient's name and designated left cheek ant to earlobe. The specimen consists of a shave biopsy measuring [id number]. Jar 0. 2 4:26 PM [facility] DERMATOPATHOLOGY LABORATORY Microscopic Description Specimen A. SKIN, left cheek ant to earlobe: There is reticulated hyperplasia of the epidermis with overlying delicate hyperorthokeratosis . Hyperpigmentation is present in the basaloid cells. 2 4:26 PM [facility] DERMATOPATHOLOGY LABORATORY Disclaimer An external and internal positive and negative controls are appropriate for the histochemical, immunohistochemical and immunofluorescence stain(s) in this case (if any), except where stated explicitly. The performance characteristics of the stain(s) cited in this report were developed and its performance characteristic determined by the Dermatopathology Laboratory at [facility], directed by Dr. John Paul Pastor. These tests need not be, and therefore are not, approved by the [place] Food and Drug Administration. The tests are used for clinical purposes. Billing Codes Specimen Charges Stain Charges 58282 1 2 4:26 PM [facility] DERMATOPATHOLOGY LABORATORY Embedded Images 2 4:26 PM [facility] DERMATOPATHOLOGY LABORATORY Pathology/Cytolog y TISSUE SPECIMEN FROM SKIN / Unknown 04/24/2021 04/25/2021 12:40 PM [facility] us Federico Kidd MD LAB - PATHOLOGY/CYTOLOGY ORD ERABLES Final Result DERMATOPATHOLOGY LABORATORY [facility] - Department of Dermatology [address] [phone] documented in this encounter Visit Diagnoses Not on filedocumented in this encounter Care Teams Broaching Machine Operator Relationship Specialty Start Date End Date Jarek Mayo MD [address] [place] [address] PCP - General 08/14/21 documented as of this encounter
--- OUTSIDE RECORDS SUMMARY | 2024-12-30 08:36 | XMS_ITS | Clinical Summary ---
Author Organization [facility] Address [address] [place] [address] Phone Care Team Providers Care Cutter And Edge Trimmer Name Role Phone Unavailable Primary Care Provider Unavailabl e Social History Tobacco Use Types Packs/Day Years Used Date Smoking Tobacco: Never Assessed Comments Unknown Sex and Gender Information Value Date Recorded Sex Assigned at Not on file Legal Sex Female 9:37 AM MST Gender Identity Not on file Sexual Orientation Not on file Plan of Treatment Upcoming Encounters Date Type Department Care Team (Late st Contact Info) Description 01/18/2025 9:20 AM COUPON COLLECTION CLERK Office Visit [facility] [address] [place] [address] Cliff Holland PA [address] [place] [address] Health Maintenance Due Date Last Done Comments Pneumococcal PPSV23 Highest Risk Adult (1 of 3 - PCV13) 09/27/1994 COVID-19 Vaccine (3 - season) 10/18/202407/2020, 05/02/2020 Influenza Vaccine (#1) 2024 03/04/2023
== END 2024-12-30 08:26 | disposition home or self-care (01) ==
LOC: CHSIMG 08:26
PROVIDERS: PCP Family Medicine; Visit Provider Family Medicine
DX: Z12.31 Encounter for screening mammogram for malignant neoplasm of breast (principal); R92.8 Other abnormal and inconclusive findings on diagnostic imaging of breast
CPT/HCPCS: 77063; 77067

== ENCOUNTER 2025-01-05 08:34 | Outpatient (CLI) | payer BC, SELFPAY ==
--- NOTE | ~2025-01-05 | CT_ITS ---
EXAM/PROCEDURE: CT abdomen pelvis wo/w con HISTORY: Duplicated R Renal Collecting System COMPARISON: 11/01/2023 TECHNIQUE: Dynamic contrast enhanced CT of the abdomen and pelvis FINDINGS: The liver is significantly enlarged measuring 26.7 cm with severe fatty infiltrative changes throughout. On postcontrast images, most of the left ureter is unenhanced and incompletely evaluated. There is duplication on the right side with the proximal pass of the right ureters visualized and appearing normal. The ureters appear to be appear to merge midway, just along the anterior margin of the right psoas muscle at or about image 118 series 7. No contrast seen in the right ureter distally. Urinary bladder is nondistended but no large mass or gross acute abnormality. No hydroureteronephrosis. Small supraumbilical ventral hernia with small amount of herniated omentum only unchanged. Subcentimeter cystic lesions in both kidneys most likely representing small benign cysts. The bowel gas pattern is nonobstructive with no free air free fluid or pneumatosis. Lung bases clear. Diffuse degenerative changes throughout the bones which otherwise appear intact No AAA or grossly inflamed appendix. Moderate amount of stool extends to the cecum. Pancreas and spleen adrenal glands and stomach appear normal. No bulky lymphadenopathy or masses seen. IMPRESSION: 1. 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 The ureters are poorly enhanced on delayed contrast imaging, and are otherwise incompletely evaluated. 2. Markedly fatty infiltrative changes and enlargement of the liver. Reviewed, dictated and finalized at location A. ONENT OVERHAUL OPERATOR IMPRESSION: 1. 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 The ureters are poorly e nhanced on delayed contrast imaging, and are otherwise incompletely evaluated. 2. Markedly fatty infiltrative changes and enlargement of the liver.
[2025-01-05 09:13] LABS: Alanine Aminotransferase 43 U/L (6-35); Albumin Level 4.7 g/dL (3.5-5.1); Alkaline Phosphatase 62 U/L (38-126); Anion Gap 9 mmol/L (4-12); Aspartate Amino Transferase 37 U/L (14-36); Bilirubin,Total 1.0 mg/dL (0.2-1.3); Blood Urea Nitrogen 18 mg/dL (7-17); Calcium 9.5 mg/dL (8.4-10.2); Carbon Dioxide 27 mmol/L (22-30); Chloride 105 mmol/L (98-107); Cholesterol 281 mg/dL (0-200); Estimated Glomerular Filt Rate > 60; Glucose 163 mg/dL (65-110); HDL Direct 49 mg/dL; Osmolality Calculated 297 mOsm/kg (285-295); Potassium 4.6 mmol/L (3.4-5.0); Sodium 141 mmol/L (137-145); Total Protein 7.8 g/dL (6.3-8.2); Triglycerides 265 mg/dL (<150)
--- OUTSIDE RECORDS SUMMARY | 2025-01-05 10:17 | XMS_ITS | Clinical Summary ---
Author Organization [facility] Address [address] [place] [address] Phone Care Team Providers Care Binder Caser Name Role Phone Unavailable Primary Care Provider Unavailabl e Social History Tobacco Use Types Packs/Day Years Used Date Smoking Tobacco: Never Assessed Comments Unknown Sex and Gender Information Value Date Recorded Sex Assigned at Not on file Legal Sex Female 9:37 AM RUST Gender Identity Not on file Sexual Orientation Not on file Plan of Treatment Upcoming Encounters Date Type Department Care Team (Late st Contact Info) Description 01/18/2025 9:20 AM DATA TYPIST Office Visit [facility] [address] [facility] [address] [place] [address] Cliff Holland PA [address] [place] [address] Health Maintenance Due Date Last Done Comments Pneumococcal PPSV23 Highest Risk Adult (1 of 3 - PCV13) 09/27/1994 COVID-19 Vaccine (3 - season) 10/18/202407/2020, 05/02/2020 Influenza Vaccine (#1) 2024 03/04/2023 Procedures Procedure Name Priority Date/Time Associated Diagnosis Comments LITHOLINK 24-HOUR URINE, [place] Routine 12/27/2024 6:15 AM DATA TYPIST Nephrolithiasis from Last 3 Months Results * (ABNORMAL) Litholink 24-Hour Urine Panel (12/27/2024 6:15 AM DATA TYPIST) CYSTINE, URINE, QUALITATIVE Neg Negative [facility] Volume, 24-Hour Urine 2,850 500 - 4,000 mL/24 hr [facility] 1 Calcium oxalate index, 24 hour Urine 5.13(L) 6.00 - 10.00 [facility] 1 Calcium, 24 hour Urine 412(H) <200 mg/24 hr [facility] 1 Oxalate, 24 hour Urine 34 20 - 40 mg/24 hr [facility] 1 Citrate, 24 hour Urine 427(L) >550 mg/24 hr [facility] 1 CALCIUM PHOSPHATE SATURATION 0.40(L) 0.50 - 2.00 [facility] 1 pH of 24 hour Urine 5.419(L) 5.800 - 6.200 [facility] 1 Urate, 24 hour Urine 2.09(H) <1.00 [facility] 1 Uric Acid (Urate), 24 Hour Urine 1,176(H) <750 mg/24 hr [facility] 1 Sodium, 24 hour Urine 335(H) 50 - 150 mmol/24 hr [facility] 1 Potassium, 24 hour Urine 57 20 - 100 mmol/24 hr [facility] 1 Magnesium, 24 hour Urine 115 30 - 120 mg/24 hr [facility] 1 Phosphate, 24 hour Urine 1,422(H) 600 - 1,200 mg/24 hr [facility] 1 AMMONIUM, URINE 40 15 - 60 mmol/24 hr [facility] 1 Chloride, 24 hour Urine 341(H) 70 - 250 mmol/24 hr [facility] 1 Sulfate, 24 hour Urine 50 20 - 80 meq/24 hr [facility] 1 Urea nitrogen, 24 hour Urine (UUN) 14.86(H) 6.00 - 14.00 g/24 hr [facility] 1 PROTEIN CATABOLIC RATE 0.9 0.8 - 1.4 g/kg/24 hr [facility] 1 Creatinine, 24 hour Urine 1,823 Not Applic. mg/24 hr [facility] 1 CREATININE / KG BODY WEIGHT 13.4 8.7 - 20.3 mg/24 hr/kg [facility] 1 Calcium/Kg Body Weight 3.0 <4.0 mg/24 hr/kg [facility] 1 RATIO CALCIUM TO CREATININE UA 226 51 - 262 mg/g creat [facility] 1 COMMENT Note [facility] 1 PDF . [facility] 1 12/27/2024 6:15 AM DATA TYPIST 12/27/2024 11:00 PM DATA TYPIST Narrative [facility] - 12/31/2024 7:09 PM DATA TYPIST Test(s) 458714-Dnfqsbw, Urine, Qualitative; 311072-Mwhijkw, Urine; 850094-sN, 24 hr, Urine; 684843-Tlcgzkvz, Urine; 489639- Sulfate, Urine was developed and its performance characteristics determined by [facility]. It has not been cleared or approved by the Food and Drug Administration. Performed at: - [facility] [id number] Executive Assistant To President: Zhao Amador PhD, Phone: [phone] us Cliff SAUER LAB URINE ORDERABLES Final [facility] 1 from Last 3 Months
== END 2025-01-05 08:35 | disposition home or self-care (01) ==
LOC: CHSLAB 08:35
PROVIDERS: PCP Family Medicine; Visit Provider Family Medicine
DX: Z00.00 Encounter for general adult medical examination without abnormal findings (principal); R73.01 Impaired fasting glucose; I10 Essential (primary) hypertension; R16.0 Hepatomegaly, not elsewhere classified; Q62.5 Duplication of ureter
CPT/HCPCS: 36415; 74178; 80053; 80061; Q9967

== ENCOUNTER 2025-01-31 09:31 | Outpatient (CLI) | payer BC, SELFPAY ==
--- NOTE | ~2025-01-31 | MM_ITS ---
EXAMINATION: MM diagnostic adrienne RT w braden INDICATION: 46-year old female; BI-RADS 0, callback to evaluate Right breast mass COMPARISON: 12/30/2024 through 08/17/2020 TECHNIQUE: Digital breast tomosynthesis True lateral view and spot compression CC and MLO views of Right breast were obtained. FINDINGS: The breasts are almost entirely fatty. The mass seen in the lower central Right breast on the screening mammogram has circumscribed margins on the spot compression views and as not changed dating back to the study of 01/14/2022. It is therefore considered benign. IMPRESSION: Right breast stable benign finding. No further investigation necessary. RECOMMENDATION: Annual screening mammography in 12 months BI-RADS 2, BENIGN Reviewed, dictated and finalized at location C. INUOUS IMPROVEMENT ENGINEER
== END 2025-01-31 09:32 | disposition home or self-care (01) ==
LOC: CHSIMG 09:32
PROVIDERS: PCP Family Medicine
DX: N63.10 Unspecified lump in the right breast, unspecified quadrant (principal); R92.8 Other abnormal and inconclusive findings on diagnostic imaging of breast
CPT/HCPCS: 77061; 77065; G0279